=== PATIENT | female | born 2000 | race Caucasian/White ===

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

== ENCOUNTER 2019-02-13 00:52 | Emergency (ER) | payer SELFPAY ==
[~2019-02-13] VITALS: Ht 162.4 cm; Wt 166.0 kg
[~2019-02-13 00:52] MED LIST changes: +CEPH-507 PO; -TRAM50TA2 PO; +TRM50T PO
--- NOTE | 2019-02-13 02:19 | ED Upper Extremity ---
General Chief Complaint: Upper Extremity Stated Complaint: LT ARM PAIN Nursing Triage Note: PAIN STARTED AT 0015 C/O LEFT ARM PAIN, DENIES INJURY OR SOB. ROM INTACT Nursing Sepsis Screen: No Definite Risk Source: patient Exam Limitations: no limitations History of Present Illness Date Seen by Provider: Feb 13, 2019 Time Seen by Provider: 02:01 Initial Comments Here with left arm pain that is actually resolved now. She states that it started this evening. She has had some left sided neck tension and some left- sided tension headache. She is under a lot of stress right now due to an ongoing move. Denies any recent injury. Denies numbness or tingling. Has full range of motion of the left arm as well as the neck that is tender along the musculature on the left side. Onset: just prior to arrival Severity: mild Pain/Injury Location: left arm Method of Injury: unknown Modifying Factors: Improves With Immobilization; Worse With Movement; Improves With Rest Allergies and Home Medications Allergies Coded Allergies: No Known Drug Allergies (Unverified , 10/14/15) Home Medications Cephalexin 500 Mg Capsule, 500 MG PO QID Prescribed by: ROLANDO ZHANG on 11/18/18 1143 Patient Home Medication List Home Medication List Reviewed: Yes Review of Systems Constitutional: see HPI; No chills, No fever Musculoskeletal: see HPI, muscle pain, muscle stiffness Skin: no symptoms reported Psychiatric/Neurological: No Symptoms Reported Past Dmxvafa-Iaquxf-Fosceh Hx Past Med/Social Hx: Reviewed Nursing Past Med/Soc Hx Patient Social History Alcohol Use: Denies Use Recreational Drug Use: No Type Used: Cigarettes Former Smoker, Quit: Mar 09, 2015 2nd Hand Smoke Exposure: Yes Recent Foreign Travel: No Contact w/Someone Who Travel: No Recent Infectious Disease Expo: No Recent Hopitalizations: No Physical Abuse: No Sexual Abuse: No Mistreated: No Fear: No Immunizations Up To Date Tetanus Booster (TDap): Less than 5yrs PED Vaccines UTD: Yes Seasonal Allergies Seasonal Allergies: No Past Medical History Surgeries: No Respiratory: No Cardiac: No Neurological: No : No (NO PERIOD IN 3 YEARS D/T "PCOS") Reproductive Disorders: Yes (IRREGULAR PERIODS) Female Reproductive Disorders: Menstrual Problems, Ovarian Cyst Sexually Transmitted Disease: No HIV/AIDS: No Genitourinary: No UTI (peds) Gastrointestinal: Yes Ulcer Musculoskeletal: No Endocrine: No HEENT: No Cancer: No Psychosocial: Yes ADD/ADHD, Anxiety, Bipolar, Depression Integumentary: No Blood Disorders: No Family Medical History Reviewed Nursing Family Hx No Pertinent Family Hx Physical Exam Vital Signs Vital Signs - First Documented 02/13/19 01:00 Temp 37.0 Pulse 123 Resp 18 B/P (MAP) 146/112 (123) Pulse Ox 100 Capillary Refill : Less Than 3 Seconds Height, Weight, BMI Height: 5'4.00" Weight: 380lbs. oz. 172.636407yl; 62.00 BMI Method:Stated General Appearance: WD/WN, no apparent distress Neck: full range of motion, supple, tender lateral (along the posterior musculature on the left) Cardiovascular: no murmur, tachycardia Respiratory: lungs clear, normal breath sounds Shoulder: no evidence of injury, normal ROM Elbow/Forearm: normal inspection, non-tender, no evidence of injury, normal ROM, Left Hand: non-tender, no evidence of injury, normal ROM, Bilateral Neurologic/Psychiatric: alert, oriented x 3 Skin: normal color, warm/dry Progress/Results/Core Measures Results/Orders Vital Signs/I&O 02/13/19 01:00 Temp 37.0 Pulse 123 Resp 18 B/P (MAP) 146/112 (123) Pulse Ox 100 Blood Pressure Mean: 123 POS Progress Progress Note : Progress Note Seen and evaluated. Patient states that she is doing better now and would like to just go home. I did discuss outpatient options for muscle strain and muscle tension. Discharged home with return precautions. Patient verbalize understanding instructions and agreement with plan. Departure Impression Primary Impression: Left arm pain Additional Impression: Neck muscle strain Qualified Codes: S16.1XXA - Strain of muscle, fascia and tendon at neck level, initial encounter Disposition: HOME, SELF-CARE Condition: Stable Departure-Patient Inst. Decision time for Depature: 02:17 Referrals: NO,LOCAL PHYSICIAN (PCP/Family) Primary Care Physician Patient Instructions: Cervical Muscle Strain (DC), Muscle Strain Add. Discharge Instructions: All discharge instructions reviewed with patient and/or family. Voiced understanding. You may take ibuprofen 600 mg every 8 hours as needed for pain. You may take Tylenol/acetaminophen 1000 mg every 8 hours as needed for pain. You may use uacb-znh-amoolqi preparations such as icy hot with lidocaine to the area of concern per package directions. You may use ice or heat to area of concern to decrease pain. Follow-up with your Dr. in a few days for recheck. Return for worse pain, fever, vomiting, weakness, breathing problems other concerns as needed. Drink plenty of fluids. JOHANA GAN MD Feb 13, 2019 02:19 POS
[2019-02-13 02:25] VITALS: BP 128/88
== END 2019-02-13 02:24 | disposition home or self-care (01) ==
LOC: EDUNIT# 00:52 → ER 00:54
DX: S16.1XXA Strain of muscle, fascia and tendon at neck level, initial encounter (principal); M79.602 Pain in left arm; F90.9 Attention-deficit hyperactivity disorder, unspecified type; F41.9 Anxiety disorder, unspecified; F31.9 Bipolar disorder, unspecified; Z77.22 Contact with and (suspected) exposure to environmental tobacco smoke (acute) (chronic); Z87.891 Personal history of nicotine dependence; Z87.440 Personal history of urinary (tract) infections; X58.XXXA Exposure to other specified factors, initial encounter
CPT/HCPCS: 99282

== ENCOUNTER 2019-03-27 06:56 | Emergency (ER) | payer SELFPAY ==
[~2019-03-27] VITALS: Ht 162.5 cm; Wt 164.5 kg
[2019-03-27] MEDS ORDERED: ONDANSETRON 4 MG (ZOFRAN) ORAL DISSOLVE TAB SL ONE (07:15)
--- NOTE | 2019-03-27 07:48 | NUR ---
REPORTS FEELING BETTER AFTER ZOFRAN ICE CHIPS GIVEN
--- NOTE | 2019-03-27 08:07 | NUR ---
AMB TO BATHROOM.
--- NOTE | 2019-03-27 08:10 | NUR ---
UNABLE TO GIVE UA.
--- NOTE | 2019-03-27 08:32 | NUR ---
TOLERATED ICE CHIPS WATER GIVEN TO DRINK
--- NOTE | 2019-03-27 08:33 | Diagnostic Imaging Report ---
Indication: Chest pain with inspiration. Comparison: 11/10/2018. Discussion: Two views of the chest were obtained. Normal heart size. No focal consolidation, pleural fluid, or pneumothorax. No osseous abnormality. Impression: 1. Negative chest. Dictated by: Dictated on workstation # [id number]
--- NOTE | 2019-03-27 09:09 | ED General ---
General Chief Complaint: General Problems/Pain Stated Complaint: LOWER BACK PAIN, N/V Nursing Triage Note: AMB TO ROOM C/O BACK PAIN WITH NAUSEA ONSET LAST NIGHT. WAS DX WITH PNEUMONIA 2 WEEKS AGO,BUT DID NOT TAKE Z PACK. REPORTS BACK PAIN ONLY WHEN TAKING A DEEP BREATH. Nursing Sepsis Screen: No Definite Risk Source of Information: Patient Exam Limitations: No Limitations History of Present Illness Date Seen by Provider: Mar 27, 2019 Time Seen by Provider: 07:02 Initial Comments This 19-year-old young lady presents to the emergency room with complaints of nausea and vomiting that started this morning around 04:30. She also has left upper back pain that hurts with inspiration. She has been seeing a chiropractor for this and believe she has a spine/disc problem. She also reports being told that a couple weeks ago that she has pneumonia in the walk-in clinic. She was prescribed azithromycin but did not take it. She is afebrile. She is tachycardic but reports that always happens in the healthcare setting. She denies any urinary symptoms. She denies . Allergies and Home Medications Allergies Coded Allergies: No Known Drug Allergies (Unverified , 10/14/15) Home Medications Ondansetron 4 Mg Tab.rapdis, 4 MG SL Q4H PRN for NAUSEA/VOMITING Prescribed by: ROLANDO ZHANG on 03/27/19 0911 Patient Home Medication List Home Medication List Reviewed: Yes Review of Systems Review of Systems Constitutional: no symptoms reported EENTM: no symptoms reported Respiratory: see HPI Cardiovascular: see HPI Gastrointestinal: see HPI Genitourinary: no symptoms reported : No Musculoskeletal: see HPI Skin: no symptoms reported Psychiatric/Neurological: No Symptoms Reported Hematologic/Lymphatic: No Symptoms Reported Immunological/Allergic: no symptoms reported Past Jgbxkhx-Enmlzt-Ayfxmh Hx Past Med/Social Hx: Reviewed and Corrections made Patient Social History Alcohol Use: Denies Use Recreational Drug Use: No Smoking Status: Former Smoker Type Used: Cigarettes Former Smoker, Quit: Mar 09, 2015 2nd Hand Smoke Exposure: Yes Recent Foreign Travel: No Contact w/Someone Who Travel: No Recent Infectious Disease Expo: No Recent Hopitalizations: No Immunizations Up To Date Tetanus Booster (TDap): Less than 5yrs PED Vaccines UTD: Yes Seasonal Allergies Seasonal Allergies: No Past Medical History Surgeries: No Respiratory: No Cardiac: No Neurological: No Last Menstrual Period: Feb 06, 2019 Reproductive Disorders: Yes (IRREGULAR PERIODS) Female Reproductive Disorders: Menstrual Problems, Ovarian Cyst, Polycystic Ovarian Dis Sexually Transmitted Disease: No HIV/AIDS: No Genitourinary: No UTI (peds) Gastrointestinal: Yes Ulcer Musculoskeletal: No Endocrine: Yes (morbid obesity, PCOS) HEENT: No Cancer: No Psychosocial: Yes ADD/ADHD, Anxiety, Bipolar, Depression Integumentary: No Blood Disorders: No Family Medical History Reviewed Nursing Family Hx No Pertinent Family Hx Physical Exam Vital Signs Vital Signs - First Documented 03/27/19 07:02 Temp 37.1 Pulse 128 Resp 18 B/P (MAP) 142/11 (54) Pulse Ox 100 O2 Delivery Room Air Capillary Refill : Less Than 3 Seconds Height, Weight, BMI Height: 5'4.00" Weight: 380lbs. oz. 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 Skin: Normal Color, Warm/Dry Progress/Results/Core Measures Suspected Sepsis Recent Fever Within 48 Hours: No Infection Criteria Present: None New/Unexplained Altered Menta: No Sepsis Screen: No Definite Risk SIRS Temperature: Pulse: 128 Respiratory Rate: 18 Blood Pressure 142 /11 Mean: 54 Results/Orders Lab Results Laboratory Tests Test 03/27/19 09:07 Range/Units Urine Color YELLOW Urine Clarity CLEAR Urine pH 6.5 5-9 Urine Specific [place] 1.010 L 1.016-1.022 Urine Protein NEGATIVE NEGATIVE Urine Glucose (UA) NEGATIVE NEGATIVE Urine Ketones NEGATIVE NEGATIVE Urine Nitrite NEGATIVE NEGATIVE Urine Bilirubin NEGATIVE NEGATIVE Urine Urobilinogen 0.2 < = 1.0 MG/DL Urine Leukocyte Esterase 1+ H NEGATIVE Urine RBC (Auto) 2+ H NEGATIVE Urine RBC NONE /HPF Urine WBC 5-10 H /HPF Urine Squamous Epithelial Cells 0-2 /HPF Urine Crystals NONE /LPF Urine Bacteria MODERATE H /HPF Urine Casts NONE /LPF Urine Mucus NEGATIVE /LPF Urine Culture Indicated YES Micro Results Microbiology 03/27/19 Influenza Types A,B Antigen (AYDEN) - Final, Complete My Orders Orders - ROLANDO STILL MD Ua Culture If Indicated (03/27/19 07:01) Urine Bedside (03/27/19 07:01) Ondansetron Oral Dissolve Tab (Zofran (03/27/19 07:15) Chest Pa/Lat (2 View) (03/27/19 07:14) Influenza A And B Antigens (03/27/19 07:25) Urine Culture (03/27/19 09:07) Medications Given in ED Current Medications Medications Dose Ordered Sig/Braeden Route Start Time Stop Time Status Last Admin Dose Admin Ondansetron HCl 8 mg ONCE ONCE SL 03/27/19 07:15 03/27/19 07:17 DC 03/27/19 07:20 8 MG Vital Signs/I&O 03/27/19 07:02 Temp 37.1 Pulse 128 Resp 18 B/P (MAP) 142/11 (54) Pulse Ox 100 O2 Delivery Room Air Capillary Refill : Less Than 3 Seconds Blood Pressure Mean: 54 Progress Note #1: Time: 09:09 Progress Note Chest x-ray was obtained to rule out pulmonary pathology. Chest x-ray was normal. Nausea was treated with Zofran and resolved. Patient was able to drink clear liquids. UA is pending. Influenza screen was negative. Progress Note #2: Time: 09:41 Progress Note UA suggestive urinary tract infection. Keflex was prescribed. Diagnostic Imaging Diagonstic Imaging: Xray Plain Films/CT/US/NM/MRI: chest Comments Chest x-ray viewed by me and report reviewed. See report below: NAME: [facility] REC#: [id number] PT STATUS: REG ER : 2000 PHYSICIAN: ROLANDO STILL MD ADMIT DATE: 03/27/19/ER Draft Date of Exam:03/27/19 CHEST PA/LAT (2 VIEW) Indication: Chest pain with inspiration. Comparison: 11/10/2018. Discussion: Two views of the chest were obtained. Normal heart size. No focal consolidation, pleural fluid, or pneumothorax. No osseous abnormality. Impression: 1. Negative chest. Dictated on workstation # [id number] Dict: 03/27/19830 Trans: 03/27/198[address] [facility] [phone] Interpreted by: LUPIS BELCHER MD Departure Impression Primary Impression: Nausea & vomiting Qualified Codes: R11.2 - Nausea with vomiting, unspecified Additional Impressions: Acute upper back pain Urinary tract infection Qualified Codes: N39.0 - Urinary tract infection, site not specified Disposition: HOME, SELF-CARE Condition: Improved Departure-Patient Inst. Decision time for Depature: 09:10 Referrals: NO,LOCAL PHYSICIAN (PCP/Family) Primary Care Physician Patient Instructions: Nausea and Vomiting, Adult (DC), Upper Back Pain (DC) Add. Discharge Instructions: Drink plenty of clear liquids. Gradually advance your diet with small quantities of bland food as tolerated. Adhere to mostly a clear liquid diet for the remainder of today. For upper abdominal discomfort you may take an antacid medication such as Tums, Pepcid, etc. purchased [id number]. Use Zofran (ondansetron) as prescribed for nausea and vomiting. Complete your antibiotics as prescribed. Review urine culture with your primary care provider middle of this week. Contact your doctor or return to the emergency room with any further problems or concerns. All discharge instructions reviewed with patient and/or family. Voiced understanding. Scripts Cephalexin (Keflex) 500 Mg Capsule 500 MG PO TID, #15 CAP Prov: ROLANDO STILL MD 03/27/19 Ondansetron (Ondansetron Odt) 4 Mg Tab.rapdis 4 MG SL Q4H PRN for NAUSEA/VOMITING, #10 TAB Prov: ROLANDO STILL MD 03/27/19 ROLANDO STILL MD Mar 27, 2019 09:09
[2019-03-27] MEDS ORDERED: ONDA4TAB11 SL (09:11)
[2019-03-27 09:14] LABS: BILIRUBIN,URINE NEGATIVE (NEGATIVE); CLARITY,URINE CLEAR; COLOR,URINE YELLOW; GLUCOSE, URINE (UA) NEGATIVE (NEGATIVE); KETONES,URINE NEGATIVE (NEGATIVE); LEUKOCYTE ESTERASE ,URINE 1+ (NEGATIVE); NITRITE,URINE NEGATIVE (NEGATIVE); PH,URINE 6.5 (5-9); PROTEIN,URINE NEGATIVE (NEGATIVE)
[2019-03-27 09:29] LABS: BACTERIA,URINE MODERATE /HPF; SQUAMOUS EPITHELIAL CELL,UR 0-2 /HPF
[2019-03-27] MEDS ORDERED: CEPH-507 PO (09:41)
[2019-03-27 09:47] VITALS: BP 138/92
== END 2019-03-27 09:47 | disposition home or self-care (01) ==
LOC: EDUNIT# 06:56 → ER 06:57
DX: N39.0 Urinary tract infection, site not specified (principal); M54.6 Pain in thoracic spine; F90.9 Attention-deficit hyperactivity disorder, unspecified type; F41.9 Anxiety disorder, unspecified; F31.9 Bipolar disorder, unspecified; E66.01 Morbid (severe) obesity due to excess calories; Z87.891 Personal history of nicotine dependence; Z77.22 Contact with and (suspected) exposure to environmental tobacco smoke (acute) (chronic); Z68.44 Body mass index [BMI] 60.0-69.9, adult
CPT/HCPCS: 71046; 81000; 84703; 87088; 87804

== ENCOUNTER 2019-04-04 21:37 | Emergency (ER) | payer SELFPAY ==
[~2019-04-04] VITALS: Ht 162 cm; Wt 163.6 kg
[~2019-04-04 21:37] MED LIST changes: +ONDA4TAB11 SL
--- NOTE | 2019-04-04 22:07 | ED Abdominal Pain ---
General Chief Complaint: Abdominal/GI Problems Stated Complaint: CP/STOMACH PAIN/L SHOULDER PAIN Source of Information: Patient Exam Limitations: No Limitations History of Present Illness Date Seen by Provider: Apr 04, 2019 Time Seen by Provider: 22:05 Initial Comments To ER with posterior/lateral chest wall pain that began this evening prior to arrival. She also has epigastric pain as a band around her abdomen. This pain gets worse when she eats. She's had this for several months and believes she has about gallbladder. She denies any cough or shortness of breath. Timing/Duration: 1-2 Days Severity/Quality: Moderate Radiation: No Radiation Activities at Onset: None Allergies and Home Medications Allergies Coded Allergies: No Known Drug Allergies (Unverified , 10/14/15) Home Medications Cephalexin 500 Mg Capsule, 500 MG PO TID Prescribed by: ROLANDO ZHANG on 03/27/19 0941 Ondansetron 4 Mg Tab.rapdis, 4 MG SL Q4H PRN for NAUSEA/VOMITING Prescribed by: ROLANDO ZHANG on 03/27/19 0911 Patient Home Medication List Home Medication List Reviewed: Yes Review of Systems Review of Systems Constitutional: see HPI EENTM: No Symptoms Reported Respiratory: No Symptoms Reported Gastrointestinal: See HPI, Abdominal Pain, Nausea Genitourinary: No Symptoms Reported Musculoskeletal: no symptoms reported Skin: no symptoms reported Psychiatric/Neurological: No Symptoms Reported Endocrine: No Symptoms Reported Hematologic/Lymphatic: No Symptoms Reported ([place] leave until the job is done) Past Kwgahhy-Dysvoj-Gattne Hx Patient Social History Type Used: Cigarettes Former Smoker, Quit: Mar 09, 2015 2nd Hand Smoke Exposure: Yes Recent Foreign Travel: No Contact w/Someone Who Travel: No Recent Hopitalizations: No Immunizations Up To Date Tetanus Booster (TDap): Less than 5yrs PED Vaccines UTD: Yes Seasonal Allergies Seasonal Allergies: No Past Medical History Surgeries: No Respiratory: No Cardiac: No Neurological: No Reproductive Disorders: Yes (IRREGULAR PERIODS) Female Reproductive Disorders: Menstrual Problems, Ovarian Cyst, Polycystic Ovarian Dis Sexually Transmitted Disease: No HIV/AIDS: No Genitourinary: No UTI (peds) Gastrointestinal: Yes Ulcer Musculoskeletal: No Endocrine: Yes (morbid obesity, PCOS) HEENT: No Cancer: No Psychosocial: Yes ADD/ADHD, Anxiety, Bipolar, Depression Integumentary: No Blood Disorders: No Family Medical History No Pertinent Family Hx Physical Exam Vital Signs Capillary Refill : Height/Weight/BMI Height: 5'4.00" Weight: 380lbs. oz. 172.054232pd; 62.00 BMI Method:Stated General Appearance: WD/WN, no apparent distress, obese, other (secondary to 110 after walking to the room with his heart rate drops after she sits down.) HEENT: PERRL/EOMI, normal ENT inspection Respiratory: normal breath sounds, no respiratory distress, no accessory muscle use Cardiovascular: no murmur Gastrointestinal: normal bowel sounds, non tender, soft Skin: normal color, warm/dry Progress/Results/Core Measures Results/Orders Lab Results Laboratory Tests Test 04/04/19 22:12 Range/Units White Blood Count 9.8 4.3-11.0 10^3/uL Red Blood Count 5.32 4.35-5.85 10^6/uL Hemoglobin 14.8 11.5-16.0 G/DL Hematocrit 46 35-52 % Mean Corpuscular Volume 86 80-99 FL Mean Corpuscular Hemoglobin 28 25-34 PG Mean Corpuscular Hemoglobin Concent 33 32-36 G/DL Red Cell Distribution Width 14.0 10.0-14.5 % Platelet Count 210 130-400 10^3/uL Mean Platelet Volume 12.9 H 7.4-10.4 FL Neutrophils (%) (Auto) 65 42-75 % Lymphocytes (%) (Auto) 27 12-44 % Monocytes (%) (Auto) 6 0-12 % Eosinophils (%) (Auto) 2 0-10 % Basophils (%) (Auto) 0 0-10 % Neutrophils # (Auto) 6.4 1.8-7.8 X 10^3 Lymphocytes # (Auto) 2.6 1.0-4.0 X 10^3 Monocytes # (Auto) 0.6 0.0-1.0 X 10^3 Eosinophils # (Auto) 0.2 0.0-0.3 10^3/uL Basophils # (Auto) 0.0 0.0-0.1 10^3/uL Sodium Level 141 135-145 MMOL/L Potassium Level 3.9 3.6-5.0 MMOL/L Chloride Level 106 98-107 MMOL/L Carbon Dioxide Level 22 21-32 MMOL/L Anion Gap 13 5-14 MMOL/L Blood Urea Nitrogen 13 7-18 MG/DL Creatinine 0.84 0.60-1.30 MG/DL Estimat Glomerular Filtration Rate > 60 BUN/Creatinine Ratio 15 Glucose Level 116 H 70-105 MG/DL Calcium Level 9.8 8.5-10.1 MG/DL Corrected Calcium 9.5 8.5-10.1 MG/DL Total Bilirubin 0.3 0.1-1.0 MG/DL Aspartate Amino Transf (AST/SGOT) 26 5-34 U/L Alanine Aminotransferase (ALT/SGPT) 48 0-55 U/L Alkaline Phosphatase 110 40-136 U/L Total Protein 7.7 6.4-8.2 GM/DL Albumin 4.4 3.2-4.5 GM/DL Lipase 23 8-78 U/L Serum Test, Qualitative NEGATIVE NEGATIVE My Orders Orders - JAEL TOTH APRN Cbc With Automated Diff (04/04/19 22:02) Lipase (04/04/19 22:02) Comprehensive Metabolic Panel (04/04/19 22:02) Chest Pa/Lat (2 View) (04/04/19 22:02) Hcg,Qualitative Serum (04/04/19 22:33) Departure Impression Primary Impression: Chest wall pain Additional Impression: RUQ pain Disposition: 01 HOME, SELF-CARE Condition: Stable Departure-Patient Inst. Decision time for Depature: 22:49 Referrals: [facility] (PCP) Primary Care Physician HERMINIA GARRIDO APRN (Family) Primary Care Physician Patient Instructions: No Instuctions Given Add. Discharge Instructions: Call the scheduling department circled in the upper left corner of the order sheet to get the gallbladder ultrasound scheduled. Results will be sent to her primary care provider Herminia Garrido. Follow-up with her to obtain these results and how to best manage them. All discharge instructions reviewed with patient and/or family. Voiced understanding. JAEL TOTH APRN Apr 04, 2019 22:07
[2019-04-04 22:18] LABS: BASOPHILS % (AUTO) 0 % (0-10); EOSINOPHILS # (AUTO) 0.2 10^3/uL (0.0-0.3); EOSINOPHILS % (AUTO) 2 % (0-10); HEMATOCRIT 46 % (35-52); HEMOGLOBIN 14.8 G/DL (11.5-16.0); LYMPHOCYTES # (AUTO) 2.6 X 10^3 (1.0-4.0); LYMPHOCYTES % (AUTO) 27 % (12-44); MEAN CORPUSCULAR HEMOGLOBIN 28 PG (25-34); MEAN CORPUSCULAR HGB CONC 33 G/DL (32-36); MEAN CORPUSCULAR VOLUME 86 FL (80-99); MEAN PLATELET VOLUME 12.9 FL (7.4-10.4); MONOCYTES # (AUTO) 0.6 X 10^3 (0.0-1.0); MONOCYTES % (AUTO) 6 % (0-12); NEUTROPHILS # (AUTO) 6.4 X 10^3 (1.8-7.8); NEUTROPHILS % (AUTO) 65 % (42-75); PLATELET COUNT 210 10^3/uL (130-400); WHITE BLOOD COUNT 9.8 10^3/uL (4.3-11.0)
[2019-04-04 22:36] LABS: ALANINE AMINOTRANSFERASE 48 U/L (0-55); ALBUMIN 4.4 GM/DL (3.2-4.5); ALKALINE PHOSPHATASE 110 U/L (40-136); BILIRUBIN,TOTAL 0.3 MG/DL (0.1-1.0); BUN/CREATININE RATIO 15; CALCIUM 9.8 MG/DL (8.5-10.1); CARBON DIOXIDE 22 MMOL/L (21-32); CHLORIDE 106 MMOL/L (98-107); CREATININE SERUM 0.84 MG/DL (0.60-1.30); GFR ESTIMATED > 60; GLUCOSE 116 MG/DL (70-105); LIPASE 23 U/L (8-78); POTASSIUM 3.9 MMOL/L (3.6-5.0); SODIUM 141 MMOL/L (135-145); TOTAL PROTEIN 7.7 GM/DL (6.4-8.2)
[2019-04-04 23:20] VITALS: BP 185/92
--- NOTE | 2019-04-05 06:23 | Diagnostic Imaging Report ---
INDICATION: Chest wall pain COMPARISON: 03/27/2019 TECHNIQUE: Two radiographs of the chest dated 04/04/2019 FINDINGS: The cardiac silhouette and pulmonary vasculature are within normal limits. The lungs are clear. No pleural effusion. No pneumothorax. No acute osseous abnormality. IMPRESSION: Stable examination without acute cardiopulmonary abnormality. Dictated by: Dictated on workstation # [id number]
== END 2019-04-04 23:20 | disposition home or self-care (01) ==
LOC: EDUNIT# 21:37 → ER 21:38
DX: R07.89 Other chest pain (principal); R10.11 Right upper quadrant pain; E66.01 Morbid (severe) obesity due to excess calories; Z68.44 Body mass index [BMI] 60.0-69.9, adult; Z87.891 Personal history of nicotine dependence; Z77.22 Contact with and (suspected) exposure to environmental tobacco smoke (acute) (chronic); Z87.440 Personal history of urinary (tract) infections
CPT/HCPCS: 36415; 71046; 80053; 83690; 84703; 85025

== ENCOUNTER → 2019-04-08 | Outpatient (CLI) | payer SELFPAY ==
--- NOTE | 2019-04-08 09:16 | Diagnostic Imaging Report ---
EXAMINATION: US Abdomen limited. TECHNIQUE: Multiple real-time grayscale images were obtained over the right upper quadrant in various projections. HISTORY: Right upper quadrant pain COMPARISON: None available. FINDINGS: The liver is normal in size. The liver is increased in echogenicity. No focal lesions are seen. The portal vein is patent with hepatopedal flow. Multiple gallstones are seen. No wall thickening or pericholecystic fluid. Sonographic Ocampo sign is negative. Common duct is obscured. There is no biliary ductal dilation. Pancreas is not well seen. The right kidney is normal without hydronephrosis. IMPRESSION: 1. Cholelithiasis without cholecystitis. 2. Hepatic steatosis. Dictated by: Dictated on workstation # [id number]
== END ==
LOC: RAD 08:40
PROVIDERS: ATTEND Nurse Practitioner Family
DX: K80.20 Calculus of gallbladder without cholecystitis without obstruction (principal); K76.0 Fatty (change of) liver, not elsewhere classified
CPT/HCPCS: 76705

== ENCOUNTER 2019-04-12 20:23 | Emergency (ER) | payer OTHER ==
--- NOTE | 2019-04-12 20:51 | ED Abdominal Pain ---
General Chief Complaint: Abdominal/GI Problems Stated Complaint: ABD PAIN History of Present Illness Date Seen by Provider: Apr 12, 2019 Time Seen by Provider: 00:00 Initial Comments LEFT AMA PRIOR TO BEING SEEN--SHORTLY AFTER BEING TRIAGED. Allergies and Home Medications Allergies Coded Allergies: No Known Drug Allergies (Unverified , 10/14/15) Home Medications Cephalexin 500 Mg Capsule, 500 MG PO TID Prescribed by: ROLANDO ZHANG on 03/27/19 0941 Ondansetron 4 Mg Tab.rapdis, 4 MG SL Q4H PRN for NAUSEA/VOMITING Prescribed by: ROLANDO ZHANG on 03/27/19 0911 Patient Home Medication List Home Medication List Reviewed: No Review of Systems Review of Systems Constitutional: other (NA) Past Zsepmvg-Vohrxf-Ccuvwj Hx Patient Social History Type Used: Cigarettes Former Smoker, Quit: Mar 09, 2015 2nd Hand Smoke Exposure: Yes Recent Foreign Travel: No Contact w/Someone Who Travel: No Recent Hopitalizations: No Immunizations Up To Date Tetanus Booster (TDap): Less than 5yrs PED Vaccines UTD: Yes Seasonal Allergies Seasonal Allergies: No Past Medical History Surgeries: No Respiratory: No Cardiac: No Neurological: No Reproductive Disorders: Yes (IRREGULAR PERIODS) Female Reproductive Disorders: Menstrual Problems, Ovarian Cyst, Polycystic Ovarian Dis Sexually Transmitted Disease: No HIV/AIDS: No Genitourinary: No UTI (peds) Gastrointestinal: Yes Ulcer Musculoskeletal: No Endocrine: Yes (morbid obesity, PCOS) HEENT: No Cancer: No Psychosocial: Yes ADD/ADHD, Anxiety, Bipolar, Depression Integumentary: No Blood Disorders: No Family Medical History No Pertinent Family Hx Physical Exam Vital Signs Capillary Refill : Height/Weight/BMI Height: 5'4.00" Weight: 380lbs. oz. 172.320366pk; 62.00 BMI Method:Stated General Appearance: other (LEFT AMA BEFORE BEING SEEN) Progress/Results/Core Measures Results/Orders My Orders Orders - MARTINE BARRAZA DO Ed Iv/Invasive Line Start (04/12/19 20:52) Monitor-Rhythm Ecg Trace Only (04/12/19 20:52) Ed Iv/Invasive Line Start (04/12/19 20:52) Lactated Ringers (Lr 1000 Ml Iv Solution (04/12/19 20:52) Departure Impression Primary Impression: Left against medical advice Disposition: 07 AGAINST MEDICAL ADVICE Condition: Against Medical Advice Departure-Patient Inst. Referrals: [facility] (PCP) Primary Care Physician TASNEEM VINSON APRN (Family) Primary Care Physician MARTINE BARRAZA DO Apr 12, 2019 20:51
[2019-04-12] MEDS ORDERED: LACTATED RINGERS 1,000 ML IV ONE (20:52)
--- NOTE | 2019-04-12 20:55 | NUR ---
PT INQUIRES ABOUT PROVIDERS WORKING TONIGHT IN THE EMERGENCY ROOM, WHEN ADVISED, THE PT STATES SHE DOES NOT WANT TO RECIEVE CARE IN THIS ER AND DEMANDS AMA FORM. ADVISED PT OF POSSIBLE CONSEQUENCES, PT ACKNOWLEDGED AND SIGNED FORM, LEFT ED AMBULATORY IN STABLE CONDITION
== END 2019-04-12 20:58 | disposition left against medical advice (07) ==
LOC: EDUNIT# 20:23 → ER 20:24
DX: R10.9 Unspecified abdominal pain (principal); E66.01 Morbid (severe) obesity due to excess calories; Z87.891 Personal history of nicotine dependence

== ENCOUNTER 2019-04-14 19:55 | Emergency (ER) | payer OTHER ==
[~2019-04-14] VITALS: Ht 162.5 cm; Wt 163.6 kg
--- NOTE | 2019-04-14 20:25 | ED Chest Pain ---
General Chief Complaint: Chest Pain Stated Complaint: CHEST PAIN Source: patient, family, spouse Exam Limitations: no limitations History of Present Illness Date Seen by Provider: Apr 14, 2019 Time Seen by Provider: 20:00 Initial Comments The patient presents to the ER by private conveyance with chief complaint of 20 minutes of chest pain in her substernal, epigastric region. She says the pain is nonradiating. It started about an hour or 2 after she ate enchiladas and a ham and cheese sandwich. She has been having this pain intermittently since November, 5 months ago. [facility] She had an ultrasound last week which demonstrated cholelithiasis without cholecystitis. She has an appointment early next week with Dr. Ashton, General Surgery. She is not on an antacid or any other medicines. She says ibuprofen usually makes the pain better she has not had any of that today. She's having no nausea presently. No personal or primary family all history of coronary disease. No history of diabetes, cholesterol, hypothyroidism, hypertension, smoking. She's had no rec ent surgeries or periods of inactivity. No shortness of breath. No familial history of sudden onset cardiac disease. She rates the pain as a 3 out of 10. Allergies and Home Medications Allergies Coded Allergies: No Known Drug Allergies (Unverified , 10/14/15) Home Medications Cephalexin 500 Mg Capsule, 500 MG PO TID Prescribed by: ROLANDO ZHANG on 03/27/19 0941 Hyoscyamine Sulfate 0.125 Mg Tab.rapdis, 0.125 MG PO Q6H PRN for DIARRHEA Prescribed by: DEBRA CEBALLOS on 04/14/192226 Ondansetron 4 Mg Tab.rapdis, 4 MG SL Q4H PRN for NAUSEA/VOMITING Prescribed by: ROLANDO ZHANG on 03/27/19 0911 Pantoprazole Sodium 20 Mg Tablet.dr, 20 MG PO BID Prescribed by: DEBRA CEBALLOS on 04/14/192226 Patient Home Medication List Home Medication List Reviewed: Yes Review of Systems Review of Systems Constitutional: No chills, No diaphoresis EENTM: No Blurred Vision, No Double Vision Respiratory: Denies Cough, Denies Shortness of Air Cardiovascular: Chest Pain; Denies Edema, Denies Irregular Heart Rate Gastrointestinal: Denies Abdominal Pain, Denies Constipated, Denies Diarrhea, Denies Nausea, Denies Poor Appetite Past Htdfhgt-Isxfdj-Hxhgog Hx Patient Social History Alcohol Use: Denies Use Smoking Status: Former Smoker Type Used: Cigarettes Former Smoker, Quit: Mar 09, 2015 2nd Hand Smoke Exposure: Yes Recent Foreign Travel: No Contact w/Someone Who Travel: No Recent Hopitalizations: No Immunizations Up To Date Tetanus Booster (TDap): Less than 5yrs PED Vaccines UTD: Yes Seasonal Allergies Seasonal Allergies: No Past Medical History Surgeries: No Respiratory: No Cardiac: No Neurological: No Reproductive Disorders: Yes (IRREGULAR PERIODS) Female Reproductive Disorders: Menstrual Problems, Ovarian Cyst, Polycystic Ovarian Dis Sexually Transmitted Disease: No HIV/AIDS: No Genitourinary: No UTI (peds) Gastrointestinal: Yes Ulcer Musculoskeletal: No Endocrine: Yes (morbid obesity, PCOS) HEENT: No Cancer: No Psychosocial: Yes ADD/ADHD, Anxiety, Bipolar, Depression Integumentary: No Blood Disorders: No Family Medical History No Pertinent Family Hx Physical Exam Vital Signs Vital Signs - First Documented 04/14/19 19:58 Temp 36.8 Pulse 107 Resp 20 B/P (MAP) 129/117 (121) O2 Delivery Room Air Capillary Refill : Height, Weight, BMI Height: 5'4.00" Weight: 380lbs. oz. 172.162308ns; 62.00 BMI Method:Stated General Appearance: No Apparent Distress, WD/WN HEENT: Pharynx Normal, Moist Mucous Membranes Neck: Full Range of Motion, Normal Inspection, Non Tender Respiratory: Lungs Clear, Normal Breath Sounds, No Accessory Muscle Use, No Respiratory Distress Cardiovascular: Regular Rate, Rhythm, No Edema, Normal Peripheral Pulses Gastrointestinal: Normal Bowel Sounds, Non Tender, Soft Extremity: Normal Capillary Refill, Normal Inspection Neurologic/Psychiatric: Alert, Oriented x3 Skin: Normal Color, Warm/Dry Progress/Results/Core Measures Results/Orders Lab Results Laboratory Tests Test 04/14/19 20:29 04/14/19 20:35 Range/Units White Blood Count 9.7 4.3-11.0 10^3/uL Red Blood Count 5.28 4.35-5.85 10^6/uL Hemoglobin 14.7 11.5-16.0 G/DL Hematocrit 45 35-52 % Mean Corpuscular Volume 85 80-99 FL Mean Corpuscular Hemoglobin 28 25-34 PG Mean Corpuscular Hemoglobin Concent 33 32-36 G/DL Red Cell Distribution Width 13.8 10.0-14.5 % Platelet Count 208 130-400 10^3/uL Mean Platelet Volume 12.8 H 7.4-10.4 FL Neutrophils (%) (Auto) 65 42-75 % Lymphocytes (%) (Auto) 27 12-44 % Monocytes (%) (Auto) 6 0-12 % Eosinophils (%) (Auto) 1 0-10 % Basophils (%) (Auto) 0 0-10 % Neutrophils # (Auto) 6.3 1.8-7.8 X 10^3 Lymphocytes # (Auto) 2.7 1.0-4.0 X 10^3 Monocytes # (Auto) 0.6 0.0-1.0 X 10^3 Eosinophils # (Auto) 0.1 0.0-0.3 10^3/uL Basophils # (Auto) 0.0 0.0-0.1 10^3/uL Sodium Level 140 135-145 MMOL/L Potassium Level 4.1 3.6-5.0 MMOL/L Chloride Level 107 98-107 MMOL/L Carbon Dioxide Level 21 21-32 MMOL/L Anion Gap 12 5-14 MMOL/L Blood Urea Nitrogen 17 7-18 MG/DL Creatinine 0.78 0.60-1.30 MG/DL Estimat Glomerular Filtration Rate > 60 BUN/Creatinine Ratio 22 Glucose Level 103 70-105 MG/DL Calcium Level 9.6 8.5-10.1 MG/DL Corrected Calcium 9.3 8.5-10.1 MG/DL Total Bilirubin 0.3 0.1-1.0 MG/DL Aspartate Amino Transf (AST/SGOT) 24 5-34 U/L Alanine Aminotransferase (ALT/SGPT) 44 0-55 U/L Alkaline Phosphatase 117 40-136 U/L Troponin I < 0.028 <0.028 NG/ML C-Reactive Protein High Sensitivity 2.14 H 0.00-0.50 MG/DL Total Protein 7.7 6.4-8.2 GM/DL Albumin 4.4 3.2-4.5 GM/DL Lipase 23 8-78 U/L Urine Color YELLOW Urine Clarity CLEAR Urine pH 6.0 5-9 Urine Specific [place] 1.025 H 1.016-1.022 Urine Protein NEGATIVE NEGATIVE Urine Glucose (UA) NEGATIVE NEGATIVE Urine Ketones NEGATIVE NEGATIVE Urine Nitrite NEGATIVE NEGATIVE Urine Bilirubin NEGATIVE NEGATIVE Urine Urobilinogen 0.2 < = 1.0 MG/DL Urine Leukocyte Esterase 2+ H NEGATIVE Urine RBC (Auto) TRACE-I NEGATIVE Urine RBC 0-2 /HPF Urine WBC 10-25 H /HPF Urine Squamous Epithelial Cells 25-50 H /HPF Urine Crystals PRESENT H /LPF Urine Amorphous Sediment MOD KLARISSA URATES H /LPF Urine Bacteria MODERATE H /HPF Urine Casts NONE /LPF Urine Mucus NEGATIVE /LPF Urine Culture Indicated YES My Orders Orders - DEBRA CEBALLOS Ketorolac Injection (Toradol Injection) (04/14/19 20:30) Cbc With Automated Diff (04/14/19 20:19) Comprehensive Metabolic Panel (04/14/19 20:19) Hs C Reactive Protein (04/14/19 20:19) Lipase (04/14/19 20:19) Ua Culture If Indicated (04/14/19 20:19) Urine Bedside (04/14/19 20:19) Pantoprazole Injection (Protonix Injecti (04/14/19 20:30) Ekg Tracing (04/14/19 20:21) Troponin I (04/14/19 20:21) Continuous Ekg Monitoring (04/14/19 20:21) Pantoprazole Tablet (Protonix Tablet) (04/14/19 20:30) Ketorolac Injection (Toradol Injection) (04/14/19 20:30) Chest 1 View, Ap/Pa Only (04/14/19 20:37) Urine Culture (04/14/19 20:35) Medications Given in ED Current Medications Medications Dose Ordered Sig/Bra[place] Route Start Time Stop Time Status Last Admin Dose Admin Pantoprazole Sodium 40 mg ONCE ONCE PO 04/14/19 20:30 04/14/19 20:31 DC 04/14/19 22:18 40 MG Vital Signs/I&O 04/14/19 04/14/19 19:58 19:58 Temp 36.8 Pulse 107 Resp 20 B/P (MAP) 129/117 (121) O2 Delivery Room Air Room Air Progress Progress Note : Time: 20:35 Progress Note Patient has a same symptoms that she has been worked up for the past discovered it was associated with cholelithiasis. We will do some labs, EKG, chest x-ray to rule out a more serious condition such as cholecystitis, pneumonia, etc. Her symptoms came after eating enchiladas and ham sandwich. We have discussed diet for prophylaxis. We have also provided her some pantoprazole and Toradol. After a couple of attempts at an IV the patient has declined any further IV stick so we will obtain lab Toradol IM and pantoprazole by mouth. She's having no nausea presently. She rates her pain as a 3 out of 10. For her sinus tachycardia we will observe her after the pain medicine and the nurse is no longer attempting to start an IV and see if that improves. Initial ECG Impression Date: Apr 14, 2019 Initial ECG Impression Time: 20:07 Initial ECG Rate: 117 Initial ECG Rhythm: S.Tach Initial ECG Intervals: Normal Initial ECG Impression: Normal Comment Sinus tachycardia without ST elevation or depression. Diagnostic Imaging Diagonstic Imaging: Xray Plain Films/CT/US/NM/MRI: chest (1v) Comments [facility], [place] NAME: JOHNATHAN NICOLE Kash [facility] REC#: [id number] PT STATUS: REG ER : 2000 PHYSICIAN: DEBRA CEBALLOS MD ADMIT DATE: 04/14/19/ER Signed Date of Exam:04/14/19 CHEST 1 VIEW, AP/PA ONLY EXAMINATION: Chest radiograph, portable AP view. DATE: 04/14/2019 8:53 PM. INDICATION: 19-year-old female, chest pain. COMPARISON: April 04, 2019. FINDINGS: Stable overall appearance of the cardiomediastinal silhouette. There is no identified pneumothorax. There is no large pleural effusion. There is no identified focal airspace consolidation. IMPRESSION: No identified acute cardiopulmonary abnormality. Dictated by: Dictated on workstation # [id number] Dict: 04/14/192052 Trans: 04/14/192129 PJE [id number] Interpreted by: ANGEL DAWSON MD Electronically signed by: ANGEL DAWSON MD 04/14/192129 Reviewed: Reviewed by Me Departure Impression Primary Impression: Cholelithiasis Qualified Codes: K80.20 - Calculus of gallbladder without cholecystitis without obstruction Additional Impression: Biliary colic Disposition: HOME, SELF-CARE Condition: Improved Departure-Patient Inst. Decision time for Depature: 22:23 Referrals: [facility] (PCP) Primary Care Physician TASNEEM VINSON APRN (Family) Primary Care Physician Patient Instructions: Gallstones (DC) Add. Discharge Instructions: Avoid greasy, dairy, spicy foods. High-fiber foods. Drink plenty of fluids. Pantoprazole 20 mg twice a day for the next 30 days. Zofran if you needed for nausea. Tylenol 1000 mg every 8 hours as needed for pain. Ibuprofen 800 mg every 8 hours as needed for pain. Hyoscyamine 0.125 mg by mouth every 6 hours as needed for diarrhea or pain associated with your gallbladder. Keep your follow-up appointment with Dr. Ashton, General Surgery. Return to the ER if you experience fever, intractable pain or nausea not treated by the above medications. All discharge instructions reviewed with patient and/or family. Voiced understanding. Scripts Hyoscyamine Sulfate (Hyoscyamine Sulfate) 0.125 Mg Tab.rapdis 0.125 MG PO Q6H PRN for DIARRHEA, #10 TAB 0 Refills Prov: DEBRA CEBALLOS 04/14/19 Pantoprazole Sodium (Pantoprazole Sodium) 20 Mg Tablet. 20 MG PO BID for 30 Days, #60 TAB 00 Refills Prov: DEBRA CEBALLOS 04/14/19 DEBRA CEBALLOS Apr 14, 2019 20:25
[2019-04-14] MEDS ORDERED: PANTOPRAZOLE 40 MG (PROTONIX) TAB PO ONE (20:30)
[2019-04-14] MEDS ORDERED: KETOROLAC 60 MG/2 ML VIAL IM ONE (20:30)
[2019-04-14] MEDS ORDERED: PANTOPRAZOLE 40 MG (PROTONIX) VIAL IV ONE (20:30)
[2019-04-14] MEDS ORDERED: KETOROLAC 30 MG/ML VIAL IVP ONE (20:30)
[2019-04-14 20:39] LABS: BASOPHILS % (AUTO) 0 % (0-10); EOSINOPHILS # (AUTO) 0.1 10^3/uL (0.0-0.3); EOSINOPHILS % (AUTO) 1 % (0-10); HEMATOCRIT 45 % (35-52); HEMOGLOBIN 14.7 G/DL (11.5-16.0); LYMPHOCYTES # (AUTO) 2.7 X 10^3 (1.0-4.0); LYMPHOCYTES % (AUTO) 27 % (12-44); MEAN CORPUSCULAR HEMOGLOBIN 28 PG (25-34); MEAN CORPUSCULAR HGB CONC 33 G/DL (32-36); MEAN CORPUSCULAR VOLUME 85 FL (80-99); MEAN PLATELET VOLUME 12.8 FL (7.4-10.4); MONOCYTES # (AUTO) 0.6 X 10^3 (0.0-1.0); MONOCYTES % (AUTO) 6 % (0-12); NEUTROPHILS # (AUTO) 6.3 X 10^3 (1.8-7.8); NEUTROPHILS % (AUTO) 65 % (42-75); PLATELET COUNT 208 10^3/uL (130-400); RED CELL DISTRIBUTION WIDTH 13.8 % (10.0-14.5); WHITE BLOOD COUNT 9.7 10^3/uL (4.3-11.0)
[2019-04-14 20:45] LABS: BILIRUBIN,URINE NEGATIVE (NEGATIVE); CLARITY,URINE CLEAR; COLOR,URINE YELLOW; GLUCOSE, URINE (UA) NEGATIVE (NEGATIVE); KETONES,URINE NEGATIVE (NEGATIVE); LEUKOCYTE ESTERASE ,URINE 2+ (NEGATIVE); NITRITE,URINE NEGATIVE (NEGATIVE); PROTEIN,URINE NEGATIVE (NEGATIVE)
[2019-04-14 20:59] LABS: RBC,URINE 0-2 /HPF
[2019-04-14 21:00] LABS: AMORPHOUS SEDIMENT,UR MOD AMOR URATES /LPF; BACTERIA,URINE MODERATE /HPF; SQUAMOUS EPITHELIAL CELL,UR 25-50 /HPF
--- NOTE | 2019-04-14 21:04 | Diagnostic Imaging Report ---
EXAMINATION: Chest radiograph, portable AP view. DATE: 04/14/2019 8:53 PM. INDICATION: 19-year-old female, chest pain. COMPARISON: April 04, 2019. FINDINGS: Stable overall appearance of the cardiomediastinal silhouette. There is no identified pneumothorax. There is no large pleural effusion. There is no identified focal airspace consolidation. IMPRESSION: No identified acute cardiopulmonary abnormality. Dictated by: Dictated on workstation # [id number]
[2019-04-14 21:07] LABS: ALANINE AMINOTRANSFERASE 44 U/L (0-55); ALBUMIN 4.4 GM/DL (3.2-4.5); ALKALINE PHOSPHATASE 117 U/L (40-136); BILIRUBIN,TOTAL 0.3 MG/DL (0.1-1.0); BUN/CREATININE RATIO 22; CALCIUM 9.6 MG/DL (8.5-10.1); CARBON DIOXIDE 21 MMOL/L (21-32); CHLORIDE 107 MMOL/L (98-107); CREATININE SERUM 0.78 MG/DL (0.60-1.30); GFR ESTIMATED > 60; GLUCOSE 103 MG/DL (70-105); LIPASE 23 U/L (8-78); POTASSIUM 4.1 MMOL/L (3.6-5.0); SODIUM 140 MMOL/L (135-145); TOTAL PROTEIN 7.7 GM/DL (6.4-8.2)
[2019-04-14] MEDS ORDERED: PANT20TA3 PO (22:27)
[2019-04-14] MEDS ORDERED: HYOS-6 PO (22:27)
[2019-04-14 22:39] VITALS: BP 129/117
== END 2019-04-14 22:40 | disposition home or self-care (01) ==
LOC: EDUNIT# 19:55 → ER 19:56
DX: K80.20 Calculus of gallbladder without cholecystitis without obstruction (principal); E66.01 Morbid (severe) obesity due to excess calories; Z87.891 Personal history of nicotine dependence; Z77.22 Contact with and (suspected) exposure to environmental tobacco smoke (acute) (chronic); Z68.44 Body mass index [BMI] 60.0-69.9, adult
CPT/HCPCS: 36415; 71045; 80053; 81000; 83690; 84484; 84703; 85025; 86141; 87088; 93005

== ENCOUNTER 2019-04-27 18:11 | Emergency (ER) | payer OTHER ==
[~2019-04-27] VITALS: Ht 162.5 cm; Wt 165.3 kg
[~2019-04-27 18:11] MED LIST changes: +HYOS-6 PO; +PANT20TA3 PO
[2019-04-27] MEDS ORDERED: HYOSCYAMINE 0.125 MG (LEVSIN) TAB PO ONE (18:45)
[2019-04-27] MEDS ORDERED: KETOROLAC 30 MG/ML VIAL IVP ONE (18:45)
--- NOTE | 2019-04-27 18:56 | NUR ---
Received report from LETICIA Tong to assume care of pt.
[2019-04-27 19:28] LABS: BASOPHILS % (AUTO) 0 % (0-10); EOSINOPHILS # (AUTO) 0.1 10^3/uL (0.0-0.3); EOSINOPHILS % (AUTO) 1 % (0-10); HEMATOCRIT 42 % (35-52); HEMOGLOBIN 13.7 G/DL (11.5-16.0); LYMPHOCYTES # (AUTO) 2.6 X 10^3 (1.0-4.0); LYMPHOCYTES % (AUTO) 25 % (12-44); MEAN CORPUSCULAR HEMOGLOBIN 28 PG (25-34); MEAN CORPUSCULAR HGB CONC 33 G/DL (32-36); MEAN CORPUSCULAR VOLUME 86 FL (80-99); MEAN PLATELET VOLUME 12.9 FL (7.4-10.4); MONOCYTES # (AUTO) 0.7 X 10^3 (0.0-1.0); MONOCYTES % (AUTO) 7 % (0-12); NEUTROPHILS % (AUTO) 67 % (42-75); PLATELET COUNT 205 10^3/uL (130-400); WHITE BLOOD COUNT 10.5 10^3/uL (4.3-11.0)
--- NOTE | 2019-04-27 19:28 | ED General ---
General Chief Complaint: General Problems/Pain Stated Complaint: CONGESTED Nursing Triage Note: Pt to ED with multiple complaints. Pt reports congestion, chills, productive cough, vomiting, abdominal pain, and fatigue. Pt reports being scheduled for lyssa May 11, 2019. Pt describes stomach pain as, "It feels like someone is squeezing my stomach." Pt reports feeling as if the L arm feels, "Like there is a band around it." Pt is concerned about an abdominal infection and would also like to be checked for the flu. Nursing Sepsis Screen: No Definite Risk Source of Information: Patient Exam Limitations: No Limitations History of Present Illness Date Seen by Provider: Apr 27, 2019 Time Seen by Provider: 18:43 Initial Comments To ER with several complaints, intermittent epigastric abdominal pain radiating through the back, some intermittent sharp chest pains, intermittent shortness of breath, intermittent nausea. Nasal congestion. She has known cholelithiasis and is scheduled for cholecystectomy May [address] Michelle. At the time of pre sentation to ER she is without pain or nausea. Timing/Duration: Intermittent Severity: Moderate Associated Systoms: Cough, Diaphoresis, Fever/Chills, Nausea/Vomiting Allergies and Home Medications Allergies Coded Allergies: iron (Verified Allergy, Unknown, 04/27/19) Home Medications Cephalexin 500 Mg Capsule, 500 MG PO TID Prescribed by: ROLANDO ZHANG on 03/27/19 0941 Hyoscyamine Sulfate 0.125 Mg Tab.rapdis, 0.125 MG PO Q6H PRN for DIARRHEA Prescribed by: DEBRA CEBALLOS on 04/14/192226 Ondansetron 4 Mg Tab.rapdis, 4 MG SL Q4H PRN for NAUSEA/VOMITING Prescribed by: ROLANDO ZHANG on 03/27/19 0911 Pantoprazole Sodium 20 Mg Tablet.dr, 20 MG PO BID Prescribed by: DEBRA CEBALLOS on 04/14/192226 Patient Home Medication List Home Medication List Reviewed: Yes Review of Systems Review of Systems Constitutional: see HPI, chills, fever EENTM: see HPI Respiratory: see HPI, cough Genitourinary: no symptoms reported Musculoskeletal: no symptoms reported Skin: no symptoms reported Past Deshzdq-Cegyfj-Wbbutv Hx Patient Social History Alcohol Use: Denies Use Recreational Drug Use: No Smoking Status: Former Smoker Type Used: Cigarettes Former Smoker, Quit: Mar 09, 2015 2nd Hand Smoke Exposure: Yes Recent Foreign Travel: No Contact w/Someone Who Travel: No Recent Infectious Disease Expo: No Recent Hopitalizations: No Immunizations Up To Date Tetanus Booster (TDap): Less than 5yrs PED Vaccines UTD: Yes Seasonal Allergies Seasonal Allergies: No Past Medical History Surgeries: No Respiratory: No Cardiac: No Neurological: No Last Menstrual Period: Feb 28, 2019 Reproductive Disorders: Yes (IRREGULAR PERIODS) Female Reproductive Disorders: Menstrual Problems, Ovarian Cyst, Polycystic Ovarian Dis Sexually Transmitted Disease: No HIV/AIDS: No Genitourinary: No UTI (peds) Gastrointestinal: Yes Ulcer Musculoskeletal: No Endocrine: Yes (morbid obesity, PCOS) HEENT: No Cancer: No Psychosocial: Yes ADD/ADHD, Anxiety, Bipolar, Depression Integumentary: No Blood Disorders: No Family Medical History No Pertinent Family Hx Physical Exam Vital Signs Vital Signs - First Documented 04/27/19 18:20 Temp 36.9 Pulse 114 Resp 14 B/P (MAP) 157/104 (121) Pulse Ox 99 Capillary Refill : Less Than 3 Seconds Height, Weight, BMI Height: 5'4.00" Weight: 380lbs. oz. 172.458446kr; 62.00 BMI Method:Stated General Appearance: No Apparent Distress, WD/WN Eyes: Bilateral Eye Normal Inspection, Bilateral Eye PERRL, Bilateral Eye EOMI Neck: Full Range of Motion, Normal Inspection Respiratory: Normal Breath Sounds, No Accessory Muscle Use, No Respiratory Dist ress Cardiovascular: Normal Peripheral Pulses, Tachycardia Gastrointestinal: Non Tender, Soft Neurologic/Psychiatric: Alert, Oriented x3 Skin: Normal Color, Warm/Dry (I) Progress/Results/Core Measures Suspected Sepsis Recent Fever Within 48 Hours: No Infection Criteria Present: None New/Unexplained Altered Menta: No Sepsis Screen: No Definite Risk SIRS Temperature: Pulse: 114 Respiratory Rate: 14 Laboratory Tests 04/27/19 19:17: White Blood Count 10.5 Blood Pressure 157 /104 Mean: 121 Laboratory Tests 04/27/19 19:17: Creatinine 0.80, Platelet Count 205, Total Bilirubin 0.2 Results/Orders Lab Results Laboratory Tests Test 04/27/19 19:17 Range/Units White Blood Count 10.5 4.3-11.0 10^3/uL Red Blood Count 4.93 4.35-5.85 10^6/uL Hemoglobin 13.7 11.5-16.0 G/DL Hematocrit 42 35-52 % Mean Corpuscular Volume 86 80-99 FL Mean Corpuscular Hemoglobin 28 25-34 PG Mean Corpuscular Hemoglobin Concent 33 32-36 G/DL Red Cell Distribution Width 14.0 10.0-14.5 % Platelet Count 205 130-400 10^3/uL Mean Platelet Volume 12.9 H 7.4-10.4 FL Neutrophils (%) (Auto) 67 42-75 % Lymphocytes (%) (Auto) 25 12-44 % Monocytes (%) (Auto) 7 0-12 % Eosinophils (%) (Auto) 1 0-10 % Basophils (%) (Auto) 0 0-10 % Neutrophils # (Auto) 7.0 1.8-7.8 X 10^3 Lymphocytes # (Auto) 2.6 1.0-4.0 X 10^3 Monocytes # (Auto) 0.7 0.0-1.0 X 10^3 Eosinophils # (Auto) 0.1 0.0-0.3 10^3/uL Basophils # (Auto) 0.0 0.0-0.1 10^3/uL D-Dimer < 0.27 0.00-0.49 UG/ML Sodium Level 140 135-145 MMOL/L Potassium Level 4.1 3.6-5.0 MMOL/L Chloride Level 106 98-107 MMOL/L Carbon Dioxide Level 21 21-32 MMOL/L Anion Gap 13 5-14 MMOL/L Blood Urea Nitrogen 15 7-18 MG/DL Creatinine 0.80 0.60-1.30 MG/DL Estimat Glomerular Filtration Rate > 60 BUN/Creatinine Ratio 19 Glucose Level 88 70-105 MG/DL Calcium Level 9.3 8.5-10.1 MG/DL Corrected Calcium 9.2 8.5-10.1 MG/DL Total Bilirubin 0.2 0.1-1.0 MG/DL Aspartate Amino Transf (AST/SGOT) 20 5-34 U/L Alanine Aminotransferase (ALT/SGPT) 31 0-55 U/L Alkaline Phosphatase 111 40-136 U/L Total Protein 7.1 6.4-8.2 GM/DL Albumin 4.1 3.2-4.5 GM/DL Lipase 14 8-78 U/L Micro Results Microbiology 04/27/19 Influenza Types A,B Antigen (AYDEN) - Final, Complete My Orders Orders - JAEL TOTH APRN Influenza A And B Antigens (04/27/19 18:29) Cbc With Automated Diff (04/27/19 18:29) Ed Iv/Invasive Line Start (04/27/19 18:38) Comprehensive Metabolic Panel (04/27/19 18:38) Lipase (04/27/19 18:38) Ketorolac Injection (Toradol Injection) (04/27/19 18:45) Hyoscyamine Sl Tablet (Levsin Sl Tablet) (04/27/19 18:45) Fibrin Degradation Products (04/27/19 18:51) Vital Signs/I&O 04/27/19 18:20 Temp 36.9 Pulse 114 Resp 14 B/P (MAP) 157/104 (121) Pulse Ox 99 Capillary Refill : Less Than 3 Seconds Blood Pressure Mean: 121 Departure Impression Primary Impression: Viral syndrome Additional Impression: Cholelithiasis Disposition: 01 HOME, SELF-CARE Condition: Stable Departure-Patient Inst. Decision time for Depature: 20:15 Referrals: [facility] (PCP) Primary Care Physician TASNEEM VINSON APRN (Family) Primary Care Physician Patient Instructions: Gallstones (DC) Add. Discharge Instructions: 1. Return to ER for any concerns 2. Follow-up with your doctor next week 3. All discharge instructions reviewed with patient and/or family. Voiced understanding. Scripts Hydrocodone/Acetaminophen ([place] 5-325 Tablet) 1 Each Tablet 1 TAB PO Q4-6HR for Pain MDD 10 TABS for 7 Days, #10 TAB Prov: JAEL TOTH APRN 04/27/19 JAEL TOTH APRN Apr 27, 2019 19:28
[2019-04-27 19:55] LABS: ALANINE AMINOTRANSFERASE 31 U/L (0-55); ALBUMIN 4.1 GM/DL (3.2-4.5); ALKALINE PHOSPHATASE 111 U/L (40-136); BILIRUBIN,TOTAL 0.2 MG/DL (0.1-1.0); BUN/CREATININE RATIO 19; CALCIUM 9.3 MG/DL (8.5-10.1); CARBON DIOXIDE 21 MMOL/L (21-32); CHLORIDE 106 MMOL/L (98-107); GFR ESTIMATED > 60; GLUCOSE 88 MG/DL (70-105); LIPASE 14 U/L (8-78); POTASSIUM 4.1 MMOL/L (3.6-5.0); SODIUM 140 MMOL/L (135-145); TOTAL PROTEIN 7.1 GM/DL (6.4-8.2)
[2019-04-27] MEDS ORDERED: HYDR-4226 PO (20:29)
[2019-04-27] MEDS ORDERED: RX-HYDROCODONE/APAP 5/325 MG #4 TAB PK PO PRN (20:30)
[2019-04-27 20:56] VITALS: BP 130/109
== END 2019-04-27 20:59 | disposition home or self-care (01) ==
LOC: EDUNIT# 18:11 → ER 18:12
DX: K80.20 Calculus of gallbladder without cholecystitis without obstruction (principal); B34.9 Viral infection, unspecified; E66.01 Morbid (severe) obesity due to excess calories; Z88.8 Allergy status to other drugs, medicaments and biological substances; Z87.891 Personal history of nicotine dependence; Z68.44 Body mass index [BMI] 60.0-69.9, adult
CPT/HCPCS: 36415; 80053; 83690; 85025; 85379; 87804

== ENCOUNTER 2019-05-04 05:35 | Outpatient (CLI) | payer OTHER ==
[~2019-05-04] VITALS: Ht 162 cm; Wt 160.0 kg
[~2019-05-04 05:35] MED LIST changes: +HYDR-4226 PO
[2019-05-04] MEDS ORDERED: IBUP-1780 PO (10:24)
== END 2019-05-04 10:44 | disposition home or self-care (01) ==
LOC: PREOP 05:35
PROVIDERS: ATTEND Surgery
DX: Z01.818 Encounter for other preprocedural examination (principal)

== ENCOUNTER 2019-05-12 19:53 | Emergency (ER) | payer OTHER ==
[~2019-05-12] VITALS: Ht 162 cm; Wt 160.0 kg
[~2019-05-12 19:53] MED LIST changes: +ACHYD1T PO; +IBUP-1780 PO
[2019-05-12 20:16] VITALS: BP 131/94
--- NOTE | 2019-05-12 21:01 | ED Abdominal Pain ---
General Chief Complaint: Post OP Complications/Pain Stated Complaint: POST SURGERY ISSUES Nursing Triage Note: PT STATES HAVING HER GALLBLADDER TAKEN OUT YESTERDAY BY DR. DONAHUE, CC ABD PAIN Sepsis Screen: No Definite Risk Source of Information: Patient Exam Limitations: No Limitations History of Present Illness Date Seen by Provider: May 12, 2019 Time Seen by Provider: 20:59 Initial Comments To ER with reports diffuse abdominal pain. She had left cholecystectomy yesterday by Dr. Donahue. she denies fevers or chills. She is having bowel moveme nts. She presents today with a diffuse abdominal pain. She has not taken any of her hydrocodone since yesterday. Timing/Duration: 1-2 Days Severity/Quality: Moderate, Cramping Radiation: No Radiation Activities at Onset: None Associated Symptoms: Nausea/Vomiting Allergies and Home Medications Allergies Coded Allergies: iron (Verified Allergy, Unknown, FROM CHILDHOOD, 05/04/19) Home Medications Hydrocodone Bit/Acetaminophen 1 Ea Tab, 1 TAB PO Q6H Prescribed by: ALLYSON DONAHUE on 05/11/19 0941 Ibuprofen 800 Mg Tablet, 800 MG PO Q8H PRN for PAIN-MILD, (Reported) Ondansetron 4 Mg Tab.rapdis, 4 MG SL Q4H PRN for NAUSEA/VOMITING Prescribed by: ROLANDO ZHANG on 03/27/19 0911 Patient Home Medication List Home Medication List Reviewed: Yes Review of Systems Review of Systems Constitutional: see HPI EENTM: No Symptoms Reported Respiratory: No Symptoms Reported Gastrointestinal: See HPI, Abdominal Pain Genitourinary: No Symptoms Reported Musculoskeletal: no symptoms reported Skin: no symptoms reported Psychiatric/Neurological: No Symptoms Reported Endocrine: No Symptoms Reported Hematologic/Lymphatic: No Symptoms Reported Past Nxulmfq-Gcizgs-[place]ai Hx Patient Social History Type Used: Cigarettes Former Smoker, Quit: Mar 09, 2015 2nd Hand Smoke Exposure: Yes Recent Foreign Travel: No Contact w/Someone Who Travel: No Recent Infectious Disease Expo: No Recent Hopitalizations: No Immunizations Up To Date Tetanus Booster (TDap): Less than 5yrs PED Vaccines UTD: Yes Seasonal Allergies Seasonal Allergies: No Past Medical History Surgeries: Yes (WISDOM TEETH) Respiratory: No Cardiac: Yes Palpitations Neurological: Yes Headaches /Migraines : No Last Menstrual Period: Mar 01, 2019 Reproductive Disorders: Yes (IRREGULAR PERIODS) Female Reproductive Disorders: Menstrual Problems, Ovarian Cyst, Polycystic Ovarian Dis Sexually Transmitted Disease: No HIV/AIDS: No Genitourinary: No UTI (peds) Gastrointestinal: Yes Gastroesophageal Reflux, Ulcer, Gall Bladder Disease Musculoskeletal: No Endocrine: Yes (morbid obesity, PCOS, HYPOGLYCEMIC) HEENT: No Loss of Vision: Denies Hearing Impairment: Denies Cancer: No Psychosocial: Yes (HX DEPRESSION, PANIC ATTACKS-SEVERE ANXIETY) Anxiety, Depression Integumentary: Yes Eczema Blood Disorders: No Adverse Reaction/Blood Tranf: No (N/A) Family Medical History No Pertinent Family Hx Physical Exam Vital Signs Vital Signs - First Documented 05/12/19 20:16 Temp 36.7 Pulse 113 Resp 22 B/P (MAP) 131/94 (106) Pulse Ox 100 O2 Delivery Room Air Capillary Refill : Less Than 3 Seconds Height/Weight/BMI Height: 5'4.00" Weight: 380lbs. oz. 172.440533nm; 60.00 BMI Method:Stated General Appearance: WD/WN, no apparent distress HEENT: PERRL/EOMI, normal ENT inspection Neck: non-tender, full range of motion Respiratory: no respiratory distress, no accessory muscle use Cardiovascular: regular rate, rhythm, no murmur Gastrointestinal: normal bowel sounds, soft, other (Incisions incisions are clean dry and intact. Is in no distress, she is not febrile. I'll have her take half of one of her 10 mg hydrocodone tablets and reevaluate. She still has intolerable pain then I will pursue a further workup. Otherwise I will treat this as normal postoperative pain.) Neurologic/Psychiatric: alert, normal mood/affect, oriented x 3 Skin: normal color, warm/dry Progress/Results/Core Measures Results/Orders Vital Signs/I&O 05/12/19 20:16 Temp 36.7 Pulse 113 Resp 22 B/P (MAP) 131/94 (106) Pulse Ox 100 O2 Delivery Room Air Blood Pressure Mean: 106 Departure Communication (Admissions) She doesn't like the way the hydrocodone makes her feel, I'll use some tramadol see if that is better tolerated. Impression Primary Impression: Postoperative pain Disposition: HOME, SELF-CARE Condition: Stable Departure-Patient Inst. Decision time for Depature: 21:15 Referrals: [facility] (PCP) Primary Care Physician TASNEEM VINSON APRN (Family) Primary Care Physician Patient Instructions: Managing Pain After Surgery Add. Discharge Instructions: 1. Medication as directed 2. JAEL TOTH APRN May 12, 2019 21:01
[2019-05-12] MEDS ORDERED: TRAM-42 PO (21:16)
--- OUTSIDE RECORDS SUMMARY | 2019-05-17 00:23 | XMS REPORT | Continuity of Care Document ---
Demographics x Preferred Language Unknown Marital Status Unknown Mu-Ism Affiliation Unknown Race Unknown Ethnic Group Unknown Author Organization Unknown Address Unknown Phone Unavailable Allergies Active Description Code Type Severity Reaction Onset Reported/Identified Relationship to Patient Clinical Status Yes No known drug allergies [id number] ND N/A N/A Yes NO KNOWN DRUG ALLERGIES NO KNOWN DRUG ALLERG UNKNOWN Medications There is no data. Problems Date Dx Coded Attending Type Code Diagnosis Diagnosed By 06/20/2014 PALMA GRANT APRN 4 62 ACUTE PHARYNGITIS 06/20/2014 PALMA GRANT APRN 786.2 COUGH 06/20/2014 EFFIE PALENCIA APRN 46 2 ACUTE PHARYNGITIS 06/20/2014 EFFIE PALENCIA APRN 78 6.2 COUGH 06/22/2014 EFFIE PALENCIA APRN V25.01 CONTRACEPTION - ORAL CONTRACEPTION 03/18/2016 Jina Durham 845.00 UNSPECIFIED SITE OF ANKLE SPRAIN 03/18/2016 Jina Durham S93.40 SPRAIN OF UNSPECIFIED LIGAMENT OF ANKLE 03/18/2016 Jina Durham S93.402 A SPRAIN OF UNSPECIFIED LIGAMENT OF LEFT ANKLE, INIT ENCNTR Procedures Code [place] [address] PREG BENITO TEST, URINE (IN- HOUSE) 06/22/2014 Results Test [...] CREA 0.80 MG/DL 0.6-1.0 EGFR 96 eGFR >= 60 GLU 99 MG/DL 70-105 K 4.1 MEQ/L [...] CREA 0.79 MG/DL 0.6-1.0 EGFR 97 eGFR >= 60 GLU 90 MG/DL 70-105 K 4.1 MEQ/L [...] NORBC SQUAMOUS EPITHELIAL CELLS 2+ BACTERIA 1+ hCG,Beta Subunit,Qual,Serum - 12/31/15 1 1:03 hCG,Beta Subunit,Qual,Serum Negative mIU/mL Negative <6 TSH+Free T4 - 07/10/16 10:28 TSH 5.420 uIU/mL 0.450-4.500 T4,Free(Direct) 1.14 ng/dL 0.93-1.60 Comp. Metabolic Panel (14) - 07/10/16 10 :28 Glucose, Serum 98 mg/dL 65-99 BUN 12 mg/dL 5-18 Creatinine, Serum 0.85 mg/dL 0.57-1.00 eGFR If NonAfricn Am TNP mL/min/1.73 eGFR If Africn Am TNP mL/min/1.73 BUN/Creatinine Ratio 10-22 Sodium, Serum 142 mmol/L 134-144 Potassium, [...] mg/dL 0-109 Testosterone, Total, LC/MS - 07/10/16 10 :28 Testosterone, Total, LC/MS 36 ng/dL Prolactin - 05/04/17 10:28 Prolactin 24.0 ng/mL 4.8-23.3 Insulin - 07/10/16 10:28 Insulin 38.3 uIU/mL 2.6-24.9 Encounters ACCT No. Visit Date/Time Discharge Status Pt. Type Provider Facility Loc./Unit Complaint [id number] 03/27/2015 09:55:00 03/27/2015 14:24 :00 DIS Emergency DC HAW[facility] EMR [id number] 02/20/2015 18:21:00 02/20/2015 20:03 :00 DIS Emergency PAOLA CANO [facility] EMR [id number] 02/05/2015 00:00:00 Document Registration [id number] 02/05/2014 00:00:00 Document Registration [id number] 03/18/2016 20:09:00 03/18/2016 20:48: 00 [id number] 10/18/2015 10:45:06 ACT Unknown [id number] 01/01/2016 08:06:00 Document Registration [id number] 06/22/2014 17:01:00 06/22/2014 23:59: 59 CLS Outpatient EFFIE PALENCIA APRN [id number] 06/20/2014 17:29:00 06/20/2014 23:59: 59 CLS Outpatient PALMA GRANT APRN [id number] 07/15/2016 14:11:00 Document Registration
== END 2019-05-12 21:39 | disposition home or self-care (01) ==
LOC: EDUNIT# 19:53 → ER 19:55
DX: G89.18 Other acute postprocedural pain (principal); E66.01 Morbid (severe) obesity due to excess calories; Z90.49 Acquired absence of other specified parts of digestive tract; Z68.44 Body mass index [BMI] 60.0-69.9, adult; Z88.8 Allergy status to other drugs, medicaments and biological substances; Z77.22 Contact with and (suspected) exposure to environmental tobacco smoke (acute) (chronic); Z87.891 Personal history of nicotine dependence
CPT/HCPCS: 99281

== ENCOUNTER → 2019-09-22 | Outpatient (CLI) | payer OTHER ==
[~2019-09-22] MED LIST changes: +TRAM-42 PO
== END ==
LOC: CARD 10:35
PROVIDERS: ATTEND Nurse Practitioner Family
DX: R07.9 Chest pain, unspecified (principal); R00.2 Palpitations; R06.00 Dyspnea, unspecified; E66.01 Morbid (severe) obesity due to excess calories; Z68.44 Body mass index [BMI] 60.0-69.9, adult
CPT/HCPCS: 93225; 93226; 93306

== ENCOUNTER → 2019-11-15 | Outpatient (CLI) | payer SELFPAY ==
--- NOTE | 2019-11-15 10:24 | Diagnostic Imaging Report ---
INDICATION: Abdominal pain. PROCEDURE: Ultrasound abdomen complete. TECHNIQUE: Multiple Real-time grayscale images were obtained of the abdomen in various projections. FINDINGS: The overall quality of the study is somewhat limited due to the patient's increased body habitus. The liver is normal in size at 17.3 cm. No discrete liver mass is detected. The portal vein is patent and shows normal direction of flow. The gallbladder is surgically absent. No definite biliary ductal dilatation is seen. The pancreas is obscured by bowel gas. The spleen is normal in size at 11.1 cm. The aorta is nonaneurysmal. The IVC is patent. The right and left kidneys are without evidence of calculi or hydronephrosis. There is no ascites. IMPRESSION: Somewhat limited due to patient body habitus. There are postop changes of cholecystectomy. No significant abnormality is detected. Dictated by: Dictated on workstation # [id number]
== END ==
LOC: RAD 09:00
PROVIDERS: ATTEND Family Medicine
DX: R10.9 Unspecified abdominal pain (principal); Z90.49 Acquired absence of other specified parts of digestive tract
CPT/HCPCS: 76700

== ENCOUNTER 2020-03-11 19:42 | Emergency (ER) | payer SELFPAY ==
[~2020-03-11] VITALS: Ht 162.5 cm; Wt 165.0 kg
[~2020-03-11 19:42] MED LIST changes: +PANT20TA18 PO; -PANT20TA3 PO
[2020-03-11 19:58] VITALS: BP 138/104
[2020-03-11] MEDS ORDERED: PRD20T PO (20:14)
[2020-03-11] MEDS ORDERED: RT-ALBUINH IH (20:14)
--- NOTE | 2020-03-11 20:14 | ED Cough/URI ---
General Stated Complaint: COUGH Source: patient Exam Limitations: no limitations History of Present Illness Date Seen by Provider: Mar 11, 2020 Time Seen by Provider: 20:11 Initial Comments Nonproductive cough for 2 weeks without fevers or chills or any other symptoms. She is on Clomid for fertility as she is trying to get . Timing/Duration: other Associated Symptoms: cough Allergies and Home Medications Allergies Coded Allergies: iron (Verified Allergy, Unknown, FROM CHILDHOOD, 05/04/19) Home Medications Hydrocodone Bit/Acetaminophen 1 Ea Tab, 1 TAB PO Q6H Prescribed by: ALLYSON DONAHUE on 05/11/19 0941 Ibuprofen 800 Mg Tablet, 800 MG PO Q8H PRN for PAIN-MILD, (Reported) Ondansetron 4 Mg Tab.rapdis, 4 MG SL Q4H PRN for NAUSEA/VOMITING Prescribed by: ROLANDO ZHANG on 03/27/19 0911 Tramadol HCl 50 Mg Tablet, 50 MG PO Q6H PRN for PAIN-MODERATE (5-7) Prescribed by: JAEL TOTH on 05/12/19 2117 Patient Home Medication List Home Medication List Reviewed: Yes Review of Systems Review of Systems Constitutional: see HPI EENTM: see HPI Respiratory: see HPI, cough Cardiovascular: no symptoms reported Genitourinary: no symptoms reported Musculoskeletal: no symptoms reported Skin: no symptoms reported Psychiatric/Neurological: No Symptoms Reported Hematologic/Lymphatic: No Symptoms Reported Past Lpmrzvs-Vhckzj-Zjbtst Hx Patient Social History Type Used: Cigarettes Former Smoker, Quit: Mar 09, 2015 2nd Hand Smoke Exposure: Yes Recent Hopitalizations: No Immunizations Up To Date Tetanus Booster (TDap): Less than 5yrs PED Vaccines UTD: Yes Seasonal Allergies Seasonal Allergies: No Past Medical History Surgeries: Yes (WISDOM TEETH) Respiratory: No Cardiac: Yes Palpitations Neurological: Yes Headaches /Migraines Reproductive Disorders: Yes (IRREGULAR PERIODS) Female Reproductive Disorders: Menstrual Problems, Ovarian Cyst, Polycystic Ovarian Dis Sexually Transmitted Disease: No HIV/AIDS: No Genitourinary: No UTI (peds) Gastrointestinal: Yes Gastroesophageal Reflux, Ulcer, Gall Bladder Disease Musculoskeletal: No Endocrine: Yes (morbid obesity, PCOS, HYPOGLYCEMIC) HEENT: No Loss of Vision: Denies Hearing Impairment: Denies Cancer: No Psychosocial: Yes (HX DEPRESSION, PANIC ATTACKS-SEVERE ANXIETY) Anxiety, Depression Integumentary: Yes Eczema Blood Disorders: No Adverse Reaction/Blood Tranf: No (N/A) Family Medical History No Pertinent Family Hx Physical Exam Capillary Refill : Height: 5'4.00" Weight: 380lbs. oz. 172.791054fy; 60.00 BMI Method:Stated General Appearance: WD/WN, no apparent distress, other (100% on room air) Eyes: Bilateral Eye Normal Inspection, Bilateral Eye PERRL Neck: non-tender, full range of motion Respiratory: lungs clear, normal breath sounds, no respiratory distress, no accessory muscle use Cardiovascular: no murmur, tachycardia Gastrointestinal: normal bowel sounds, non tender, soft Extremities: normal range of motion, non-tender Neurologic/Psychiatric: alert, normal mood/affect, oriented x 3 Skin: normal color, warm/dry Progress/Results/Core Measures Suspected Sepsis SIRS Temperature: Pulse: Respiratory Rate: Blood Pressure / Mean: Results/Orders My Orders Orders - JAEL TOTH APRN Chest 1 View, Ap/Pa Only (03/11/20 20:10) Influenza A And B Antigens (03/11/20 20:10) Covid 19 Inhouse Test (03/11/20 20:10) Vital Signs/I&O Capillary Refill : Departure Impression Primary Impression: Upper respiratory infection Disposition: HOME, SELF-CARE Condition: Stable Departure-Patient Inst. Decision time for Depature: 20:12 Referrals: [facility] [place] Primary Care Physician TASNEEM VINSON APRN (Family) Primary Care Physician Patient Instructions: Viral Upper Respiratory Infection, Adult (DC) Add. Discharge Instructions: 1. Call your fertility doctor tomorrow to ask about using the albuterol inhaler and steroid. Return to ER for any concerns. Scripts Prednisone (Prednisone) 20 Mg Tab 40 MG PO DAILY, #6 TAB 0 Refills Prov: JAEL TOTH APRN 03/11/20 Albuterol Sulfate (PROAIR HFA) 1 Puff Puff 2 PUFF IH Q4H PRN for SHORTNESS OF BREATH, #1 PUFF 1 PUFF = 90 MCG Prov: JAEL TOTH APRN 03/11/20 JAEL TOTH APRN Mar 11, 2020 20:14
--- NOTE | 2020-03-11 20:51 | Diagnostic Imaging Report ---
EXAM: Chest 1 view, AP/PA only. INDICATION: Cough. COMPARISON: Chest radiograph 04/14/2019. FINDINGS: Normal heart size and pulmonary vascularity. No dense consolidation, pleural effusion or pneumothorax. No acute osseous finding. IMPRESSION: Negative chest. Dictated by: Dictated on workstation # [id number]
== END 2020-03-11 20:38 | disposition home or self-care (01) ==
LOC: EDUNIT# 19:42 → ER 19:44
DX: J06.9 Acute upper respiratory infection, unspecified (principal); E66.01 Morbid (severe) obesity due to excess calories; Z87.891 Personal history of nicotine dependence; Z20.828 Contact with and (suspected) exposure to other viral communicable diseases; Z68.44 Body mass index [BMI] 60.0-69.9, adult
CPT/HCPCS: 71045; 87804; 99283; U0002; 87635

== ENCOUNTER 2020-04-22 14:55 | Emergency (ER) | payer SELFPAY ==
[~2020-04-22] VITALS: Ht 162.5 cm; Wt 165.1 kg
[~2020-04-22 14:55] MED LIST changes: +PRD20T PO; +RT-ALBUINH IH
--- NOTE | 2020-04-22 15:21 | ED Dyspnea ---
General Stated Complaint: COVID POSITIVE 04/14, SOB Source of Information: Patient Exam Limitations: No Limitations History of Present Illness Date Seen by Provider: Apr 22, 2020 Time Seen by Provider: 15:20 Initial Comments To ER with reports of shortness of breath onset today. She tested positive for Covid on 04/14. She was actually exposed on the but for what ever reason was tested on the (though she was asymptomatic) with the hopes that she could come out of quarantine if the test was negative. Coincidentally she tested positive. No symptoms other than shortness of breath which began today. Timing/Duration: 4-6 Hours Severity: Moderate Prior Episodes/Possible Cause: No Prior Episodes Associated Symptoms: Denies Symptoms Allergies and Home Medications Allergies Coded Allergies: iron (Verified Allergy, Unknown, FROM CHILDHOOD, 05/04/19) Home Medications Albuterol Sulfate 1 Puff Puff, 2 PUFF IH Q4H PRN for SHORTNESS OF BREATH 1 PUFF = 90 MCG Prescribed by: JAEL TOTH on 03/11/202013 Hydrocodone Bit/Acetaminophen 1 Ea Tab, 1 TAB PO Q6H Prescribed by: ALLYSON DONAHUE on 05/11/19 0941 Ibuprofen 800 Mg Tablet, 800 MG PO Q8H PRN for PAIN-MILD, (Reported) Ondansetron 4 Mg Tab.rapdis, 4 MG SL Q4H PRN for NAUSEA/VOMITING Prescribed by: ROLANDO ZHANG on 03/27/19 0911 Prednisone 20 Mg Tab, 40 MG PO DAILY Prescribed by: JAEL TOTH on 03/11/202013 Tramadol HCl 50 Mg Tablet, 50 MG PO Q6H PRN for PAIN-MODERATE (5-7) Prescribed by: JAEL TOTH on 05/12/192116 Patient Home Medication List Home Medication List Reviewed: Yes Review of Systems Review of Systems Constitutional: see HPI EENTM: see HPI Respiratory: see HPI; No cough; short of breath Cardiovascular: no symptoms reported; No chest pain Musculoskeletal: no symptoms reported Skin: no symptoms reported Psychiatric/Neurological: No Symptoms Reported Endocrine: No Symptoms Reported Hematologic/Lymphatic: No Symptoms Reported Past Iqoziwz-Jucpdz-Fydpew Hx Patient Social History Type Used: Cigarettes Former Smoker, Quit: Mar 09, 2015 2nd Hand Smoke Exposure: Yes Recent Hopitalizations: No Immunizations Up To Date Tetanus Booster (TDap): Less than 5yrs PED Vaccines UTD: Yes Seasonal Allergies Seasonal Allergies: No Past Medical History Surgeries: Yes (WISDOM TEETH) Gallbladder Respiratory: No Cardiac: Yes Palpitations Neurological: Yes Headaches /Migraines Reproductive Disorders: Yes (IRREGULAR PERIODS) Female Reproductive Disorders: Menstrual Problems, Ovarian Cyst, Polycystic Ovarian Dis Sexually Transmitted Disease: No HIV/AIDS: No Genitourinary: No UTI (peds) Gastrointestinal: Yes Gastroesophageal Reflux, Ulcer, Gall Bladder Disease Musculoskeletal: No Endocrine: Yes (morbid obesity, PCOS, HYPOGLYCEMIC) HEENT: No Loss of Vision: Denies Hearing Impairment: Denies Cancer: No Psychosocial: Yes (HX DEPRESSION, PANIC ATTACKS-SEVERE ANXIETY) Anxiety, Depression Integumentary: Yes Eczema Blood Disorders: No Adverse Reaction/Blood Tranf: No (N/A) Family Medical History No Pertinent Family Hx Physical Exam Vital Signs Vital Signs - First Documented 04/22/20 15:05 Temp 36.8 Pulse 118 Resp 20 B/P (MAP) 159/124 (136) Pulse Ox 100 O2 Delivery Room Air Capillary Refill : Height, Weight, BMI Height: 5'4.00" Weight: 380lbs. oz. 172.574894oc; 62.00 BMI Method:Stated General Appearance: No Apparent Distress, WD/WN, Obese, Other (Alert oriented very pleasant no distress heart rate 115, oxygen saturation 99% room air) Neck: Full Range of Motion, Normal Inspection Respiratory: No Accessory Muscle Use, No Respiratory Distress Cardiovascular: Regular Rate, Rhythm, Normal Peripheral Pulses Gastrointestinal: Normal Bowel Sounds, Non Tender, Soft Extremity: Normal Capillary Refill, Normal Inspection Neurologic/Psychiatric: Alert, Oriented x3 Skin: Normal Color, Warm/Dry Progress/Results/Core Measures Results/Orders Lab Results Laboratory Tests Test 04/22/20 15:15 Range/Units White Blood Count 10.3 4.3-11.0 10^3/uL Red Blood Count 5.21 H 3.80-5.11 10^6/uL Hemoglobin 13.5 11.5-16.0 g/dL Hematocrit 44 35-52 % Mean Corpuscular Volume 84 80-99 fL Mean Corpuscular Hemoglobin 26 25-34 pg Mean Corpuscular Hemoglobin Concent 31 L 32-36 g/dL Red Cell Distribution Width 14.3 10.0-14.5 % Platelet Count 227 130-400 10^3/uL Mean Platelet Volume 12.8 H 9.0-12.2 fL Immature Granulocyte % (Auto) 0 % Neutrophils (%) (Auto) 69 42-75 % Lymphocytes (%) (Auto) 24 12-44 % Monocytes (%) (Auto) 5 0-12 % Eosinophils (%) (Auto) 1 0-10 % Basophils (%) (Auto) 0 0-10 % Neutrophils # (Auto) 7.2 1.8-7.8 10^3/uL Lymphocytes # (Auto) 2.4 1.0-4.0 10^3/uL Monocytes # (Auto) 0.6 0.0-1.0 10^3/uL Eosinophils # (Auto) 0.1 0.0-0.3 10^3/uL Basophils # (Auto) 0.0 0.0-0.1 10^3/uL Immature Granulocyte # (Auto) 0.0 0.0-0.1 10^3/uL D-Dimer 0.30 0.00-0.49 UG/ML Sodium Level 141 135-145 MMOL/L Potassium Level 3.9 3.6-5.0 MMOL/L Chloride Level 107 98-107 MMOL/L Carbon Dioxide Level 23 21-32 MMOL/L Anion Gap 11 5-14 MMOL/L Blood Urea Nitrogen 15 7-18 MG/DL Creatinine 0.84 0.60-1.30 MG/DL Estimat Glomerular Filtration Rate > 60 BUN/Creatinine Ratio 18 Glucose Level 110 H 70-105 MG/DL Calcium Level 8.9 8.5-10.1 MG/DL Corrected Calcium 8.8 8.5-10.1 MG/DL Total Bilirubin 0.2 0.1-1.0 MG/DL Aspartate Amino Transf (AST/SGOT) 19 5-34 U/L Alanine Aminotransferase (ALT/SGPT) 26 0-55 U/L Alkaline Phosphatase 96 40-136 U/L C-Reactive Protein High Sensitivity 1.46 H 0.00-0.50 MG/DL Total Protein 7.4 6.4-8.2 GM/DL Albumin 4.1 3.2-4.5 GM/DL Procalcitonin 0.03 <0.10 NG/ML Serum Test, Qualitative NEGATIVE NEGATIVE My Orders Orders - JAEL TOTH APRN Cbc With Automated Diff (04/22/20 15:13) Hcg,Qualitative Serum (04/22/20 15:13) Comprehensive Metabolic Panel (04/22/20 15:13) Fibrin Degradation Products (04/22/20 15:13) Hs C Reactive Protein (04/22/20 15:13) Procalcitonin (Pct) (04/22/20 15:13) Chest 1 View, Ap/Pa Only (04/22/20 15:19) Vital Signs/I&O 04/22/20 15:05 Temp 36.8 Pulse 118 Resp 20 B/P (MAP) 159/124 (136) Pulse Ox 100 O2 Delivery Room Air Departure Impression Primary Impression: Dyspnea Additional Impression: COVID-19 Disposition: 01 HOME, SELF-CARE Condition: Stable Departure-Patient Inst. Decision time for Depature: 16:12 Referrals: [facility] (PCP) Primary Care Physician TASNEEM VINSON APRN (Family) Primary Care Physician Patient Instructions: Shortness of Breath (Dyspnea) Add. Discharge Instructions: 1. Take the steroids as directed. Return to ER for any concerns. Follow-up with your doctor next week. Scripts Dexamethasone (Dexamethasone) 6 Mg Tablet 6 MG PO DAILY, #5 TAB Prov: JAEL TOTH APRN 04/22/20 Work/School Note: Work Release Form Date Seen in the Emergency Department: Apr 22, 2020 Return to Work: Apr 25, 2020 JAEL TOTH APRN Apr 22, 2020 15:21
[2020-04-22 15:27] LABS: HEMOGLOBIN 13.5 g/dL (11.5-16.0); WHITE BLOOD COUNT 10.3 10^3/uL (4.3-11.0)
[2020-04-22 15:28] LABS: BASOPHILS % (AUTO) 0 % (0-10); EOSINOPHILS # (AUTO) 0.1 10^3/uL (0.0-0.3); EOSINOPHILS % (AUTO) 1 % (0-10); HEMATOCRIT 44 % (35-52); LYMPHOCYTES # (AUTO) 2.4 10^3/uL (1.0-4.0); LYMPHOCYTES % (AUTO) 24 % (12-44); MEAN CORPUSCULAR HEMOGLOBIN 26 pg (25-34); MEAN CORPUSCULAR HGB CONC 31 g/dL (32-36); MEAN CORPUSCULAR VOLUME 84 fL (80-99); MEAN PLATELET VOLUME 12.8 fL (9.0-12.2); MONOCYTES # (AUTO) 0.6 10^3/uL (0.0-1.0); MONOCYTES % (AUTO) 5 % (0-12); NEUTROPHILS # (AUTO) 7.2 10^3/uL (1.8-7.8); NEUTROPHILS % (AUTO) 69 % (42-75); PLATELET COUNT 227 10^3/uL (130-400)
[2020-04-22 15:37] LABS: ALBUMIN 4.1 GM/DL (3.2-4.5); CHLORIDE 107 MMOL/L (98-107); POTASSIUM 3.9 MMOL/L (3.6-5.0); SODIUM 141 MMOL/L (135-145)
[2020-04-22 15:38] LABS: CALCIUM 8.9 MG/DL (8.5-10.1)
[2020-04-22 15:40] LABS: GLUCOSE 110 MG/DL (70-105); TOTAL PROTEIN 7.4 GM/DL (6.4-8.2)
[2020-04-22 15:41] LABS: BILIRUBIN,TOTAL 0.2 MG/DL (0.1-1.0); CARBON DIOXIDE 23 MMOL/L (21-32)
[2020-04-22 15:43] LABS: ALKALINE PHOSPHATASE 96 U/L (40-136); CREATININE SERUM 0.84 MG/DL (0.60-1.30); GFR ESTIMATED > 60
[2020-04-22 15:44] LABS: BUN/CREATININE RATIO 18
[2020-04-22 15:46] LABS: ALANINE AMINOTRANSFERASE 26 U/L (0-55)
--- NOTE | 2020-04-22 16:01 | Diagnostic Imaging Report ---
INDICATION: soa covid +. TECHNIQUE: Single view chest 3:50 PM. CORRELATION STUDY: 03/11/2020 FINDINGS: The heart size, mediastinal configuration and pulmonary vascularity are within normal limits. The lungs are clear with no consolidating infiltrate. There is no significant effusion or pneumothorax. IMPRESSION: 1. Negative appearing portable chest. Dictated by: Dictated on workstation # [id number]
[2020-04-22] MEDS ORDERED: DEXA6TAB PO (16:14)
[2020-04-22 16:25] VITALS: BP 148/98
== END 2020-04-22 16:25 | disposition home or self-care (01) ==
LOC: EDUNIT# 14:55 → ER 14:57
DX: U07.1 COVID-19 (principal); R06.00 Dyspnea, unspecified; E66.01 Morbid (severe) obesity due to excess calories; Z68.44 Body mass index [BMI] 60.0-69.9, adult; Z87.891 Personal history of nicotine dependence; Z79.52 Long term (current) use of systemic steroids
CPT/HCPCS: 36415; 71045; 80053; 84145; 84703; 85025; 85379; 86141

== ENCOUNTER 2020-06-20 13:17 | Emergency (ER) | payer SELFPAY ==
[~2020-06-20] VITALS: Ht 162 cm; Wt 168.0 kg
[~2020-06-20 13:17] MED LIST changes: +DEXA6TAB PO
[2020-06-20 13:47] LABS: BASOPHILS % (AUTO) 0 % (0-10); EOSINOPHILS # (AUTO) 0.1 10^3/uL (0.0-0.3); EOSINOPHILS % (AUTO) 1 % (0-10); HEMATOCRIT 44 % (35-52); HEMOGLOBIN 13.8 g/dL (11.5-16.0); LYMPHOCYTES # (AUTO) 2.2 10^3/uL (1.0-4.0); LYMPHOCYTES % (AUTO) 27 % (12-44); MEAN CORPUSCULAR HEMOGLOBIN 27 pg (25-34); MEAN CORPUSCULAR HGB CONC 31 g/dL (32-36); MEAN CORPUSCULAR VOLUME 85 fL (80-99); MEAN PLATELET VOLUME 12.5 fL (9.0-12.2); MONOCYTES # (AUTO) 0.6 10^3/uL (0.0-1.0); MONOCYTES % (AUTO) 7 % (0-12); NEUTROPHILS # (AUTO) 5.3 10^3/uL (1.8-7.8); NEUTROPHILS % (AUTO) 64 % (42-75); PLATELET COUNT 205 10^3/uL (130-400); WHITE BLOOD COUNT 8.2 10^3/uL (4.3-11.0)
[2020-06-20 13:54] LABS: ALBUMIN 4.2 GM/DL (3.2-4.5); CHLORIDE 105 MMOL/L (98-107)
[2020-06-20 13:55] LABS: POTASSIUM 3.8 MMOL/L (3.6-5.0); SODIUM 142 MMOL/L (135-145)
[2020-06-20 13:56] LABS: CALCIUM 9.1 MG/DL (8.5-10.1)
[2020-06-20 13:57] LABS: GLUCOSE 98 MG/DL (70-105); TOTAL PROTEIN 7.3 GM/DL (6.4-8.2)
--- NOTE | 2020-06-20 13:57 | ED Cardiac General ---
History of Present Illness General Chief Complaint: Chest Pain Stated Complaint: CP,SOB Nursing Triage Note: PT AMB TO ROOM 2 PT CO OF C/P APPROX 1 HOUR AGO. DENIES C/P AT THIS X. NO N/V OR DIAPHORISIS History of Present Illness Date Seen by Provider: Jun 20, 2020 Time Seen by Provider: 13:20 Initial Comments 20-year-old female presents for chest pain that she was experiencing over 1 hour ago. She denies any chest pain at this time. She was at work when her symptoms began. No known causative factor. She denies being under any additional stress or having anxiety. She had no associated nausea, vomiting, or diaphoresis. She has been seen in the past for palpitations and has done a Holter monitor, her lead mechanic is Dr. Aguero. She did not take any medication for the chest pain and it resolved. Hx of PCOS and HTN, but is not compliant with her medication when prescribed. Patient reports that she does not like to take medications. Timing/Duration: 1-3 hours Severity: mild Location: substernal Prior CP/Workup: other (Holter monitor) NTG SL TRAFFIC MONITOR SPECIALIST: No ASA po TRAFFIC MONITOR SPECIALIST: No Associated Systoms: Chest Pain (Resolved); No Cough, No Diaphoresis, No Fever/Chills, No Headaches, No Malaise, No Nausea/Vomiting, No Shortness of Air, No Syncope Allergies and Home Medications Allergies Coded Allergies: No Known Drug Allergies (Unverified , 06/20/20) Home Medications Nitrofurantoin Macrocrystal 100 Mg Capsule, 100 MG PO BID Prescribed by: KALEB MOLINA on 06/20/20 8430 Patient Home Medication List Home Medication List Reviewed: Yes Review of Systems Review of Systems Constitutional: no symptoms reported, see HPI Cardiovascular: See HPI, Chest Pain, Palpitations Gastrointestinal: No Symptoms Reported, See HPI All Other Systems Reviewed Negative Unless Noted: Yes Past Xyafuoi-Efengd-Axsfok Hx Past Med/Social Hx: Reviewed Nursing Past Med/Soc Hx, Reviewed and Corrections made Patient Social History Type Used: Cigarettes Former Smoker, Quit: Mar 09, 2015 2nd Hand Smoke Exposure: Yes Recent Infectious Disease Expo: No Recent Hopitalizations: No Immunizations Up To Date Tetanus Booster (TDap): Less than 5yrs PED Vaccines UTD: Yes Seasonal Allergies Seasonal Allergies: No Past Medical History Surgeries: Yes (WISDOM TEETH) Gallbladder Respiratory: No Cardiac: Yes Palpitations Neurological: Yes Headaches /Migraines Last Menstrual Period: May 02, 2020 Reproductive Disorders: Yes (IRREGULAR PERIODS) Female Reproductive Disorders: Menstrual Problems, Ovarian Cyst, Polycystic Ovarian Dis Sexually Transmitted Disease: No HIV/AIDS: No Genitourinary: No UTI (peds) Gastrointestinal: Yes Gastroesophageal Reflux, Ulcer, Gall Bladder Disease Musculoskeletal: No Endocrine: Yes (morbid obesity, PCOS, HYPOGLYCEMIC) HEENT: No Loss of Vision: Denies Hearing Impairment: Denies Cancer: No Psychosocial: Yes (HX DEPRESSION, PANIC ATTACKS-SEVERE ANXIETY) Anxiety, Depression Integumentary: Yes Eczema Blood Disorders: No Adverse Reaction/Blood Tranf: No (N/A) Family Medical History No Pertinent Family Hx Physical Exam Vital Signs Vital Signs - First Documented 06/20/20 13:20 Temp 36.3 Pulse 108 Resp 18 B/P (MAP) 169/87 (114) Pulse Ox 99 O2 Delivery Room Air Capillary Refill : Less Than 3 Seconds Height, Weight, BMI Height: 5'4.00" Weight: 380lbs. oz. 172.521715es; 64.00 BMI Method:Stated General Appearance: No Apparent Distress, WD/WN, Obese HEENT: PERRL/EOMI, TMs Normal, Normal ENT Inspection, Pharynx Normal Neck: Full Range of Motion, Normal Inspection, Non Tender, Supple Respiratory: Chest Non Tender, Lungs Clear, Normal Breath Sounds, No Accessory Muscle Use, No Respiratory Distress Cardiovascular: Regular Rate, Rhythm, No Edema, Tachycardia (100-105) Gastrointestinal: Normal Bowel Sounds, Non Tender, Soft Extremity: Normal Capillary Refill, Normal Inspection, Normal Range of Motion, Non Tender, No Calf Tenderness, No Pedal Edema Neurologic/Psychiatric: Alert, Oriented x3, No Motor/Sensory Deficits, Normal Mood/Affect Skin: Normal Color, Warm/Dry Progress/Results/Core Measures Results/Orders Lab Results Laboratory Tests Test 06/20/20 13:35 06/20/20 14:05 Range/Units White Blood Count 8.2 4.3-11.0 10^3/uL Red Blood Count 5.21 H 3.80-5.11 10^6/uL Hemoglobin 13.8 11.5-16.0 g/dL Hematocrit 44 35-52 % Mean Corpuscular Volume 85 80-99 fL Mean Corpuscular Hemoglobin 27 25-34 pg Mean Corpuscular Hemoglobin Concent 31 L 32-36 g/dL Red Cell Distribution Width 14.2 10.0-14.5 % Platelet Count 205 130-400 10^3/uL Mean Platelet Volume 12.5 H 9.0-12.2 fL Immature Granulocyte % (Auto) 0 % Neutrophils (%) (Auto) 64 42-75 % Lymphocytes (%) (Auto) 27 12-44 % Monocytes (%) (Auto) 7 0-12 % Eosinophils (%) (Auto) 1 0-10 % Basophils (%) (Auto) 0 0-10 % Neutrophils # (Auto) 5.3 1.8-7.8 10^3/uL Lymphocytes # (Auto) 2.2 1.0-4.0 10^3/uL Monocytes # (Auto) 0.6 0.0-1.0 10^3/uL Eosinophils # (Auto) 0.1 0.0-0.3 10^3/uL Basophils # (Auto) 0.0 0.0-0.1 10^3/uL Immature Granulocyte # (Auto) 0.0 0.0-0.1 10^3/uL Prothrombin Time 12.9 12.2-14.7 SEC INR Comment 0.9 0.8-1.4 Activated Partial Thromboplast Time 28 24-35 SEC Sodium Level 142 135-145 MMOL/L Potassium Level 3.8 3.6-5.0 MMOL/L Chloride Level 105 98-107 MMOL/L Carbon Dioxide Level 27 21-32 MMOL/L Anion Gap 10 5-14 MMOL/L Blood Urea Nitrogen 14 7-18 MG/DL Creatinine 0.83 0.60-1.30 MG/DL Estimat Glomerular Filtration Rate > 60 BUN/Creatinine Ratio 17 Glucose Level 98 70-105 MG/DL Calcium Level 9.1 8.5-10.1 MG/DL Corrected Calcium 8.9 8.5-10.1 MG/DL Magnesium Level 2.0 1.6-2.4 MG/DL Total Bilirubin 0.2 0.1-1.0 MG/DL Aspartate Amino Transf (AST/SGOT) 19 5-34 U/L Alanine Aminotransferase (ALT/SGPT) 29 0-55 U/L Alkaline Phosphatase 106 40-136 U/L Myoglobin 34.7 10.0-92.0 NG/ML Troponin I < 0.028 <0.028 NG/ML Total Protein 7.3 6.4-8.2 GM/DL Albumin 4.2 3.2-4.5 GM/DL Urine Color YELLOW Urine Clarity CLEAR Urine pH 6.5 5-9 Urine Specific [place] 1.025 H 1.016-1.022 Urine Protein NEGATIVE NEGATIVE Urine Glucose (UA) NEGATIVE NEGATIVE Urine Ketones NEGATIVE NEGATIVE Urine Nitrite NEGATIVE NEGATIVE Urine Bilirubin NEGATIVE NEGATIVE Urine Urobilinogen 0.2 < = 1.0 MG/DL Urine Leukocyte Esterase 2+ H NEGATIVE Urine RBC (Auto) 3+ H NEGATIVE Urine RBC 0-2 /HPF Urine WBC 2-5 /HPF Urine Squamous Epithelial Cells 10-25 H /HPF Urine Crystals NONE /LPF Urine Bacteria FEW H /HPF Urine Casts NONE /LPF Urine Mucus NEGATIVE /LPF Urine Culture Indicated YES My Orders Orders - KALEB MOLINA Urine Bedside (06/20/20 13:38) Cbc With Automated Diff (06/20/20 13:38) Magnesium (06/20/20 13:38) Chest 1 View, Ap/Pa Only (06/20/20 13:38) Ekg Tracing (06/20/20 13:38) Comprehensive Metabolic Panel (06/20/20 13:38) Myoglobin Serum (06/20/20 13:38) Protime With Inr (06/20/20 13:38) Partial Thromboplastin Time (06/20/20 13:38) Monitor-Rhythm Ecg Trace Only (06/20/20 13:38) Ed Iv/Invasive Line Start (06/20/20 13:38) Troponin I (06/20/20 13:38) Ua Culture If Indicated (06/20/20 13:40) Aspirin Chewable Tablet (Baby Aspirin Ch (06/20/20 14:00) Urine Culture (06/20/20 14:05) Medications Given in ED Current Medications Medications Dose Ordered Sig/[place] Route Start Time Stop Time Status Last Admin Dose Admin Aspirin 324 mg ONCE ONCE PO 06/20/20 14:00 06/20/20 14:01 DC 06/20/20 14:03 324 MG Vital Signs/I&O 06/20/20 06/20/20 06/20/20 13:20 13:20 15:02 Temp 36.3 Pulse 108 99 Resp 18 18 B/P (MAP) 169/87 (114) 169/100 Pulse Ox 99 99 O2 Delivery Room Air Blood Pressure Mean: 114 Progress Progress Note : Time: 13:20 Progress Note Patient seen and evaluated, will obtain EKG, chest x-ray and labs. Aspirin 324 mg orally. No additional medicine since she is asymptomatic at this time. 1400 patient continues to report no chest pain. Her blood pressure has been labile. Heart rate has been 90-100. Discussed UA, she does have recurrent UTIs. She does not drink water regularly, she drinks cranberry juice 1445 B/P 140/90s, recommended medication for B/P patient refuses, does not like to take medications. Discharge instructions and return precautions discussed with the patient and her mother. All questions answered. Initial ECG Impression Date: Jun 20, 2020 Initial ECG Impression Time: 13:31 Initial ECG Rate: 117 Initial ECG Rhythm: S.Tach Initial ECG Intervals: Normal Initial ECG Intervals [place] 151, QRSD 87, QT 311, QTc 434. Adamant P 56, QRS 56, T 18. Initial ECG Impression: Normal Initial ECG Comparisson: Unchanged Diagnostic Imaging Diagonstic Imaging: Xray Plain Films/CT/US/NM/MRI: chest Departure Impression Primary Impression: Atypical chest pain Additional Impression: UTI (urinary tract infection) Qualified Codes: N30.01 - Acute cystitis with hematuria Disposition: HOME, SELF-CARE Condition: Stable Departure-Patient Inst. Decision time for Depature: 14:45 Referrals: [facility] (PCP) Primary Care Physician TASNEEM VINSON APRN (Family) Primary Care Physician Patient Instructions: Chest Pain That Is Not Caused by the Heart (DC), Urinary Tract Infection, Adult (DC) Add. Discharge Instructions: Schedule a follow-up appointment with your primary care provider and with Dr. Abbott. Increase water intake, 16 ounces every 2 hours while awake. Take antibiotics as prescribed. Increase your physical activity, start with walking for 10 to 15 minutes each day. Talk to your primary care provider about resuming your medications that have previously been prescribed. Return to the emergency department for new, urgent healthcare needs. All discharge instructions reviewed with patient and/or family. Voiced understanding. Scripts Nitrofurantoin Macrocrystal (Nitrofurantoin) 100 Mg Capsule 100 MG PO BID, #10 CAP 0 Refills Prov: KALEB MOLINA 06/20/20 Copy Copies To 1: DEVENDRA DIMAS MD FACP FACC CCDS KALEB MOLINA Jun 20, 2020 13:57
[2020-06-20 13:58] LABS: CARBON DIOXIDE 27 MMOL/L (21-32); INR 0.9 (0.8-1.4); PROTHROMBIN TIME PATIENT 12.9 SEC (12.2-14.7)
[2020-06-20 13:59] LABS: BILIRUBIN,TOTAL 0.2 MG/DL (0.1-1.0)
[2020-06-20 14:00] LABS: ALKALINE PHOSPHATASE 106 U/L (40-136); CREATININE SERUM 0.83 MG/DL (0.60-1.30); GFR ESTIMATED > 60
[2020-06-20] MEDS ORDERED: ASPIRIN 81 MG CHEW (CHILDREN'S ASA) PO ONE (14:00)
[2020-06-20 14:01] LABS: BUN/CREATININE RATIO 17
[2020-06-20 14:03] LABS: ALANINE AMINOTRANSFERASE 29 U/L (0-55)
[2020-06-20 14:17] LABS: BILIRUBIN,URINE NEGATIVE (NEGATIVE); CLARITY,URINE CLEAR; COLOR,URINE YELLOW; GLUCOSE, URINE (UA) NEGATIVE (NEGATIVE); KETONES,URINE NEGATIVE (NEGATIVE); LEUKOCYTE ESTERASE ,URINE 2+ (NEGATIVE); NITRITE,URINE NEGATIVE (NEGATIVE); PH,URINE 6.5 (5-9); PROTEIN,URINE NEGATIVE (NEGATIVE)
--- NOTE | 2020-06-20 14:29 | Diagnostic Imaging Report ---
INDICATION: Chest pain. Time of exam 2:20 p.m. Correlation is made with prior chest from 04/22/2020. FINDINGS: The heart size is normal. The pulmonary vascularity is unremarkable. The lungs are clear. No infiltrate, effusion or pneumothorax is detected. IMPRESSION: No acute cardiopulmonary process is detected. Dictated by: Dictated on workstation # [id number]
[2020-06-20 14:32] LABS: BACTERIA,URINE FEW /HPF; RBC,URINE 0-2 /HPF
[2020-06-20] MEDS ORDERED: NITR100C PO (14:55)
[2020-06-20 15:02] VITALS: BP 169/100
== END 2020-06-20 15:01 | disposition home or self-care (01) ==
LOC: EDUNIT# 13:17 → ER 13:19
DX: R07.89 Other chest pain (principal); N39.0 Urinary tract infection, site not specified; I10 Essential (primary) hypertension; E66.01 Morbid (severe) obesity due to excess calories; Z68.44 Body mass index [BMI] 60.0-69.9, adult; Z87.891 Personal history of nicotine dependence
CPT/HCPCS: 36415; 71045; 80053; 81000; 83735; 83874; 84484; 84703; 85025; 85610; 85730; 87088; 93005; 93041

== ENCOUNTER 2020-06-27 18:15 | Emergency (ER) | payer SELFPAY ==
[~2020-06-27] VITALS: Ht 162.6 cm; Wt 167.8 kg
[~2020-06-27 18:15] MED LIST changes: +NITR100C PO
--- NOTE | 2020-06-27 18:34 | ED Cough/URI ---
General Stated Complaint: COUGH / SORE THROAT Source: patient History of Present Illness Date Seen by Provider: Jun 27, 2020 Time Seen by Provider: 18:18 Initial Comments PT ARRIVES VIA POV FROM HOME C/O PRODUCTIVE COUGH AND RUNNY NOSE SINCE 06/18/20--AFTER GOING TO THE [facility] NO CHEST PAIN OR SHORTNESS OF BREATH NO FEVER/SWEATS/CHILLS C/O MILD SORE THROAT--STATES IS FROM COUGHING PT DENIES HISTORY OF RESPIRATORY PROBLEMS HAS NOT TAKEN ANYTHING FOR SYMPTOMS AT ANY TIME SYMPTOMS ARE NO DIFFERENT TODAY IN ANY WAY HAS NOT SOUGHT CARE UNTIL TONIGHT PT STATES SHE TESTED + FOR COVID 04/14/20 NO TREATMENT OR HOSPITALIZATION ONLY SYMPTOM WAS COUGH AND SHORTNESS OF BREATH AT THAT TIME THOSE SYMPTOMS RESOLVED AND HAS BEEN FINE UNTIL LAST WEEK PT DOES NOT SMOKE LMP SOMETIME IN APRIL, CONTROL STATES PERIODS ALWAYS IRREGULAR DUE TO PCOS, BUT DOES NOT TAKE ANY MEDICATION FOR IT. PCP: [facility] Allergies and Home Medications Allergies Coded Allergies: No Known Drug Allergies (Unverified , 06/20/20) Home Medications Doxycycline Hyclate 100 Mg Tablet, 100 MG PO BID Prescribed by: MARTINE BARRAZA on 06/27/201912 Fluticasone Propionate 9.9 Ml [place].susp, 2 SPRAY NS DAILY 2 SPRAYS PER NOSTRIL DAILY X 2 DAYS THEN 1 SPRAY DAILY Prescribed by: MARTINE BARRAZA on 06/27/201912 Guaifenesin/Dextromethorphan 1 Each Tbmp.12hr, 1 EACH PO BID Prescribed by: MARTINE BARRAZA on 06/27/201912 Nitrofurantoin Macrocrystal 100 Mg Capsule, 100 MG PO BID Prescribed by: KALEB MOLINA on 06/20/20 1455 Patient Home Medication List Home Medication List Reviewed: Yes Review of Systems Review of Systems Constitutional: no symptoms reported; No chills, No diaphoresis, No fever EENTM: see HPI, nose congestion, throat pain Respiratory: see HPI, cough; No short of breath Cardiovascular: no symptoms reported; No chest pain Gastrointestinal: no symptoms reported Genitourinary: no symptoms reported : No LMP: Apr 09, 2020 Musculoskeletal: no symptoms reported Skin: no symptoms reported Psychiatric/Neurological: No Symptoms Reported Hematologic/Lymphatic: No Symptoms Reported Immunological/Allergic: no symptoms reported Past Qgdcana-Ccbfdp-Mcvwpa Hx Past Med/Social Hx: Reviewed and Corrections made Patient Social History Alcohol Use: Denies Use Drug of Choice: THC TEEN Smoking Status: Former Smoker Type Used: Cigarettes Former Smoker, Quit: Mar 09, 2015 2nd Hand Smoke Exposure: Yes Recent Hopitalizations: No Immunizations Up To Date Tetanus Booster (TDap): Less than 5yrs PED Vaccines UTD: Yes Seasonal Allergies Seasonal Allergies: No Past Medical History Surgeries: Yes (WISDOM TEETH) Gallbladder Respiratory: No Cardiac: Yes Palpitations Neurological: Yes Headaches /Migraines Reproductive Disorders: Yes (IRREGULAR PERIODS) Female Reproductive Disorders: Menstrual Problems, Ovarian Cyst, Polycystic Ovarian Dis Sexually Transmitted Disease: No HIV/AIDS: No Genitourinary: No UTI (peds) Gastrointestinal: Yes Gastroesophageal Reflux, Ulcer, Gall Bladder Disease Musculoskeletal: No Endocrine: Yes (morbid obesity, PCOS, HYPOGLYCEMIC) HEENT: No Loss of Vision: Denies Hearing Impairment: Denies Cancer: No Psychosocial: Yes (HX DEPRESSION, PANIC ATTACKS-SEVERE ANXIETY) Anxiety, Depression Integumentary: Yes Eczema Blood Disorders: No Adverse Reaction/Blood Tranf: No (N/A) Family Medical History No Pertinent Family Hx TESTED + FOR COVID-19 ON 04/14/20 MILD DISEASE NO TREATMENT OR HOSPITALIZATION Physical Exam Vital Signs - First Documented 06/27/20 18:25 Temp 36.1 Pulse 109 Resp 18 B/P (MAP) 147/113 (124) Pulse Ox 100 O2 Delivery Room Air Capillary Refill : Height: 5'4.00" Weight: 380lbs. oz. 172.502134ps; 64.00 BMI Method:Stated General Appearance: WD/WN, no apparent distress, obese (MORBIDLY OBESE), other (DOES NOT APPEAR ILL OR TO BE IN ANY DISCOMFORT OR DISTRESS, OCCASIONAL DRY COUGH) HEENT: PERRL/EOMI, other (MILD NASAL CONGESTION. NO SINUS TENDERNESS) Neck: normal inspection Respiratory: normal breath sounds, no respiratory distress, no accessory muscle use Cardiovascular: regular rate, rhythm, no murmur Neurologic/Psychiatric: no motor/sensory deficits, alert, normal mood/affect, oriented x 3 Skin: normal color, warm/dry Progress/Results/Core Measures Suspected Sepsis SIRS Temperature: Pulse: Respiratory Rate: Blood Pressure / Mean: Results/Orders My Orders Orders - MARTINE BARRAZA DO Chest Pa/Lat (2 View) (06/27/20 18:27) Urine Bedside (06/27/20 18:27) Vital Signs/I&O 06/27/20 06/27/20 18:25 18:25 Temp 36.1 Pulse 109 Resp 18 B/P (MAP) 147/113 (124) Pulse Ox 100 O2 Delivery Room Air Room Air Capillary Refill : Progress Note : Progress Note REFUSES ANY SWABS OF ANY KIND--REFUSES FLU TESTING Diagnostic Imaging Comments CXR--NO ACUTE PROCESS, PER RADIOLOGIST REPORT AT 1913 Reviewed: Reviewed by Me Departure Impression Primary Impression: Bronchitis Additional Impression: Upper respiratory infection Disposition: HOME, SELF-CARE Condition: Stable Departure-Patient Inst. Referrals: [facility] (PCP/Family) Primary Care Physician Patient Instructions: Acute Bronchitis, Adult (DC), Cough, Runny Nose, and the Common Cold (DC), Upper Respiratory Infection ED Add. Discharge Instructions: LOTS OF CLEAR LIQUIDS TYLENOL AND MOTRIN NEEDED FOR PAIN OR FEVER OVER THE COUNTER CLARITIN OR ZYRTEC FOR RUNNY NOSE FOLLOW UP WITH YOUR DR IN 3-4 DAYS IF NO BETTER Scripts Fluticasone Propionate (Flonase Allergy Relief) 9.9 Ml Gray.susp 2 SPRAY NS DAILY, #1 EACH 2 SPRAYS PER NOSTRIL DAILY X 2 DAYS THEN 1 SPRAY DAILY Prov: MARTINE BARRAZA DO 06/27/20 Guaifenesin/Dextromethorphan (Mucinex Dm ER 1,200-60 mg Tab) 1 Each Tbmp.12hr 1 EACH PO BID, #20 EA Prov: MARTINE BARRAZA DO 06/27/20 Doxycycline Hyclate (Doxycycline Hyclate) 100 Mg Tablet 100 MG PO BID, #20 TAB 0 Refills Prov: MARTINE BARRAZA DO 06/27/20 MARTINE BARRAZA DO Jun 27, 2020 18:33
--- NOTE | 2020-06-27 19:10 | Diagnostic Imaging Report ---
EXAMINATION: Chest 2 view. HISTORY: Cough. COMPARISON: 06/20/2020. FINDINGS: The lung volumes are normal. No focal consolidation is seen. No large pleural effusion or pneumothorax is seen. The cardiomediastinal silhouette is normal in size and contour. No acute osseous abnormality is seen. IMPRESSION: No acute pleuroparenchymal process. Dictated by: Dictated on workstation # [id number]
[2020-06-27] MEDS ORDERED: DOXY100T2 PO (19:13)
[2020-06-27] MEDS ORDERED: GUAI1TBM19 PO (19:13)
[2020-06-27] MEDS ORDERED: FLUT9.9S NS (19:13)
[2020-06-27 19:16] VITALS: BP 147/116
== END 2020-06-27 19:19 | disposition home or self-care (01) ==
LOC: EDUNIT# 18:15 → ER 18:17
DX: J40 Bronchitis, not specified as acute or chronic (principal); J06.9 Acute upper respiratory infection, unspecified; E66.01 Morbid (severe) obesity due to excess calories; Z68.44 Body mass index [BMI] 60.0-69.9, adult; Z87.891 Personal history of nicotine dependence
CPT/HCPCS: 71046; 84703

== ENCOUNTER 2020-08-01 21:06 | Emergency (ER) | payer SELFPAY ==
[~2020-08-01] VITALS: Ht 162.5 cm; Wt 168.2 kg
[~2020-08-01 21:06] MED LIST changes: +DOXY100T2 PO; +FLUT9.9S NS; +GUAI1TBM19 PO
--- NOTE | 2020-08-01 21:56 | ED Headache ---
General Chief Complaint: Head/Cervical Problems Stated Complaint: NECK / HEAD PAIN Nursing Triage Note: c/opain behind right ear. son has been wearing a headset for a new job. verbalizes increased lateral neck pain when wearing headset. 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 She has to wear a headset and she says will never she wears a headset it makes her right side of her head and posterior neck over the mastoid process hurt worse. She moved with a headset down trying to avoid the pain and it only change the position of her pain. She does not like using muscle relaxants because she does not like the way to make her feel. She has been using Tylenol 1000 mg every 8 hours and ibuprofen 800 mg every 8 hours. She has not been using topical creams or heat. She follows with [facility]. She says she is not allowed to use any other kind of microphone on speaker for this job. She went to walk-in care earlier in the week and they looked in her ear and said she did not have any evidence of ear infection or other concerning features. Allergies and Home Medications Allergies Coded Allergies: No Known Drug Allergies (Unverified , 06/20/20) Home Medications Doxycycline Hyclate 100 Mg Tablet, 100 MG PO BID Prescribed by: MARTINE BARRAZA on 06/27/201912 Fluticasone Propionate 9.9 Ml [place].susp, 2 SPRAY NS DAILY 2 SPRAYS PER NOSTRIL DAILY X 2 DAYS THEN 1 SPRAY DAILY Prescribed by: MARTINE BARRAZA on 06/27/201912 Guaifenesin/Dextromethorphan 1 Each Tbmp.12hr, 1 EACH PO BID Prescribed by: MARTINE BARRAZA on 06/27/201912 Nitrofurantoin Macrocrystal 100 Mg Capsule, 100 MG PO BID Prescribed by: KALEB MOLINA on 06/20/20 1705 Patient Home Medication List Home Medication List Reviewed: Yes Review of Systems Review of Systems Constitutional: No chills, No diaphoresis Eyes: Denies Blindness, Denies Blurred Vision Ears, Nose, Mouth, Throat: denies ear pain, denies nose pain Respiratory: No cough, No short of breath Cardiovascular: No edema, No syncope Gastrointestinal: No abdominal pain, No constipation, No diarrhea Genitourinary: No discharge, No dysuria Musculoskeletal: see HPI, neck pain All Other Systems Reviewed Negative Unless Noted: Yes Past Igpbczu-Bzniet-Nrwdnp Hx Patient Social History Alcohol Use: Denies Use Drug of Choice: THC TEEN Smoking Status: Former Smoker Type Used: Cigarettes Former Smoker, Quit: Mar 09, 2015 2nd Hand Smoke Exposure: Yes Recent Infectious Disease Expo: No Recent Hopitalizations: No Immunizations Up To Date Tetanus Booster (TDap): Less than 5yrs PED Vaccines UTD: Yes Seasonal Allergies Seasonal Allergies: No Past Medical History Surgeries: Yes (WISDOM TEETH) Gallbladder Respiratory: No Cardiac: Yes Palpitations Neurological: Yes Headaches /Migraines Reproductive Disorders: Yes (IRREGULAR PERIODS) Female Reproductive Disorders: Menstrual Problems, Ovarian Cyst, Polycystic Ovarian Dis Sexually Transmitted Disease: No HIV/AIDS: No Genitourinary: No UTI (peds) Gastrointestinal: Yes Gastroesophageal Reflux, Ulcer, Gall Bladder Disease Musculoskeletal: No Endocrine: Yes (morbid obesity, PCOS, HYPOGLYCEMIC) HEENT: No Loss of Vision: Denies Hearing Impairment: Denies Cancer: No Psychosocial: Yes (HX DEPRESSION, PANIC ATTACKS-SEVERE ANXIETY) Anxiety, Depression Integumentary: Yes Eczema Blood Disorders: No Adverse Reaction/Blood Tranf: No (N/A) Family Medical History No Pertinent Family Hx TESTED + FOR COVID-19 ON 04/14/20 MILD DISEASE NO TREATMENT OR HOSPITALIZATION Physical Exam Vital Signs Vital Signs - First Documented 08/01/20 21:30 Temp 37.0 Pulse 107 Resp 20 B/P (MAP) 161/125 (137) Pulse Ox 96 Capillary Refill : Less Than 3 Seconds Height, Weight, BMI Height: 5'4.00" Weight: 380lbs. oz. 172.788335dw; 63.00 BMI Method:Stated General Appearance: WD/WN, mild distress HEENT: PERRL/EOMI, normal ENT inspection, TMs normal, pharynx normal, other (Tenderness over the right mastoid and associated muscles, sternocleidomastoid etc.) Neck: No full range of motion (Tenderness on right-sided horizontal rotation); normal inspection; No lymphadenopathy (R), No lymphadenopathy (L); tender lateral (Right side) Cardiovascular: normal peripheral pulses, regular rate, rhythm Respiratory: no respiratory distress, no accessory muscle use Psychiatric: alert, oriented x 3 Crainal Nerves: normal hearing, normal speech, PERRL Coordination/Gait: normal gait Motor/Sensory: no motor deficit, no sensory deficit Skin: normal color, warm/dry Progress/Results/Core Measures Results/Orders Vital Signs/I&O 08/01/20 21:30 Temp 37.0 Pulse 107 Resp 20 B/P (MAP) 161/125 (137) Pulse Ox 96 Blood Pressure Mean: 137 Progress Progress Note : Time: 21:53 Progress Note Well-appearing woman with apparent muscle spasms probably related to the headgear she started wearing when her symptoms started appearing. Plan to put her on some restrictions for the next couple weeks and refer her on to physical therapy. She is adamantly against using muscle relaxant so were going to switch her ibuprofen to naproxen, encouraged topical creams, heat and give her a day of rest tomorrow. Departure Impression Primary Impression: Torticollis, acquired Disposition: 01 HOME, SELF-CARE Condition: Stable Departure-Patient Inst. Decision time for Depature: 21:54 Referrals: [facility] (PCP/Family) Primary Care Physician Patient Instructions: Torticollis (DC) Add. Discharge Instructions: You have an acquired torticollis or spasm of the muscles of your neck likely related to the headgear. I would encourage you to not wear any headgear for the next 2 to 4 weeks. Work with your employer to get a desktop mounted microphone and speaker. You are not to wear anything on your head heavier than an earbud until 09/01/2020. Use topical creams such as icy hot, Biofreeze or creams with capsaicin oil. Heating pads or warm moist heat applied directly to the areas that hurt will help relieve the pain and spasm. Tylenol 1000 mg every 8 hours as necessary for pain. Start using the naproxen 1 tablet 500 mg twice a day on a scheduled basis for the next 2 weeks. Follow-up with your primary care provider if you not seeing improvement over the next 1 to 2 weeks. Call and request a follow-up appointment with physical therapy at [phone]. All discharge instructions reviewed with patient and/or family. Voiced understanding. Scripts Naproxen (Naprosyn) 500 Mg Tablet 500 MG PO BID for 14 Days, #30 TAB 0 Refills Prov: DEBRA CEBALLOS 08/01/20 Work/School Note: Work Release Form Date Seen in the Emergency Department: August 01, 2020 Return to Work: August 03, 2020 Restrictions: Need Release from Doctor Other Restrictions Listed Below: Do not wear anything on your head heavier than an earbud until 09/01/2020. DEBRA CEBALLOS August 01, 2020 21:56
[2020-08-01] MEDS ORDERED: NAPR-1071 PO (21:57)
[2020-08-01 22:03] VITALS: BP 168/97
== END 2020-08-01 22:04 | disposition home or self-care (01) ==
LOC: EDUNIT# 21:06 → ER 21:08
DX: M43.6 Torticollis (principal); E66.01 Morbid (severe) obesity due to excess calories; Z68.44 Body mass index [BMI] 60.0-69.9, adult; Z87.891 Personal history of nicotine dependence; Z77.22 Contact with and (suspected) exposure to environmental tobacco smoke (acute) (chronic)
CPT/HCPCS: 99282

== ENCOUNTER 2021-05-13 05:07 | Emergency (ER) | payer SELFPAY ==
[~2021-05-13] VITALS: Ht 162.6 cm; Wt 161.5 kg
[~2021-05-13 05:07] MED LIST changes: +NAPR-1071 PO
[2021-05-13 05:22] VITALS: BP 167/124
--- NOTE | 2021-05-13 05:35 | ED Cough/URI ---
General Chief Complaint: Cough/Cold/Flu Symptoms Stated Complaint: FEVER 106;FLU A+;CONGESTION Nursing Triage Note: PT AMBULATORY TO ROOM 10. PT STATES SHE TESTED POSITIVE FOR FLU A TWO DAYS AGO AND HAS HAD A FEVER, COUGH, CONGESTION, AND SORE THROAT. PT STATES HER TEMPERATURE AT HOME WAS 106. PT TEMP ON ARRIVAL 99.9 ORALLY Source: patient History of Present Illness Date Seen by Provider: May 13, 2021 Time Seen by Provider: 05:19 Initial Comments PT ARRIVES VIA POV FROM HOME--MALE S.O. HAS CHECKED IN WITH SAME SYMPTOMS PT STATES SHE BEGAN GETTING SICK ON Thursday05/09/21, AND WENT TO TO [facility] ON THURSDAY AND TESTED + FOR INFLUENZA A. PT STATES SHE WAS GIVEN RX FOR TAMIFLU, BUT DID NOT GET IT FILLED PT STATES SHE HAS COUGH AND CONGESTION, NASAL DRAINAGE, SORE THROAT, HAS HAD OCCASIONAL HEADACHE AND BODY ACHES WITH IT. STATES HER TEMPERATURE WAS "106" JUST PRIOR TO ARRIVAL AND RUSHED STRAIGHT HERE--TEMP IS 37.7 C / 98.8 F ON ARRIVAL HERE PT HAS NOT TAKEN ANYTHING FOR ANY OF HER SYMPTOMS AT ANY TIME PT STATES SHE HAD COVID LAST MONTH, NO TREATMENT, AND THOSE SYMPTOMS RESOLVED. DENIES ANY CHRONIC MEDICAL PROBLEMS PCP: [facility] Allergies and Home Medications Allergies Coded Allergies: Penicillins (Verified Allergy, Unknown, 05/13/21) Patient Home Medication List Home Medication List Reviewed: Yes Doxycycline Hyclate (Doxycycline Hyclate) 100 Mg Tablet, 100 MG PO BID Prescribed by: MARTINE BARRAZA on 06/27/201912 Fluticasone Propionate (Flonase Allergy Relief) 9.9 Ml [place].susp, 2 SPRAY NS DAILY Prescribed by: MARTINE BARRAZA on 06/27/201912 Guaifenesin/Dextromethorphan (Mucinex Dm ER 1,200-60 mg Tab) 1 Each Tbmp.12hr, 1 EACH PO BID Prescribed by: MARTINE BARRAZA on 06/27/201912 Naproxen (Naprosyn) 500 Mg Tablet, 500 MG PO BID Prescribed by: DEBRA CEBALLOS on 08/01/202156 Nitrofurantoin Macrocrystal (Nitrofurantoin) 100 Mg Capsule, 100 MG PO BID Prescribed by: KALEB MOLINA on 06/20/20 5026 Review of Systems Review of Systems Constitutional: see HPI, fever EENTM: nose congestion, throat pain Respiratory: cough Cardiovascular: no symptoms reported Gastrointestinal: no symptoms reported Genitourinary: no symptoms reported Musculoskeletal: see HPI (BODY ACHES) Skin: no symptoms reported Psychiatric/Neurological: See HPI, Headache Hematologic/Lymphatic: No Symptoms Reported Immunological/Allergic: no symptoms reported Past Gwaarsa-Raxyyg-Mtpfjn Hx Patient Social History Tobacco Use?: Yes Tobacco type used: Cigarettes Smoking Status: Former Smoker Substance use?: No Alcohol Use?: No Immunizations Up To Date Tetanus Booster (TDap): Less than 5yrs PED Vaccines UTD: Yes Seasonal Allergies Seasonal Allergies: No Past Medical History Surgeries: Yes (WISDOM TEETH) Gallbladder Respiratory: No Cardiac: Yes Palpitations Neurological: Yes Headaches /Migraines Reproductive Disorders: Yes (IRREGULAR PERIODS) Female Reproductive Disorders: Menstrual Problems, Ovarian Cyst, Polycystic Ovarian Dis Sexually Transmitted Disease: No HIV/AIDS: No Genitourinary: No UTI (peds) Gastrointestinal: Yes Gastroesophageal Reflux, Ulcer, Gall Bladder Disease Musculoskeletal: No Endocrine: Yes (MORBID OBESITY, PCOS, HYPOGLYCEMIC) HEENT: No Loss of Vision: Denies Hearing Impairment: Denies Cancer: No Psychosocial: Yes (HX DEPRESSION, PANIC ATTACKS-SEVERE ANXIETY) Anxiety, Depression Integumentary: Yes Eczema Blood Disorders: No Adverse Reaction/Blood Tranf: No (N/A) Family Medical History No Pertinent Family Hx TESTED + FOR COVID-19 ON 04/14/20 MILD DISEASE NO TREATMENT OR HOSPITALIZATION Physical Exam Vital Signs - First Documented 05/13/21 05:22 Temp 37.7 Pulse 128 Resp 17 B/P (MAP) 167/124 (138) Pulse Ox 99 Capillary Refill : Height: 5'4.00" Weight: 380lbs. oz. [id number]; 61.00 BMI Method:Stated General Appearance: WD/WN, no apparent distress, obese (MORBIDLY ), other (DOES NOT APPEAR ILL OR TO BE IN ANY DISCOMFORT OR DISTRESS) HEENT: PERRL/EOMI, TMs normal, pharynx normal, other (MILD NASAL CONGESTION ) Neck: normal inspection Respiratory: normal breath sounds, no respiratory distress, no accessory muscle use Cardiovascular: no murmur, tachycardia Gastrointestinal: non tender, soft Extremities: normal inspection, normal capillary refill Neurologic/Psychiatric: rn research II-XII nml as tested, no motor/sensory deficits, alert, normal mood/affect, oriented x 3 Skin: normal color, warm/dry; No rash Progress/Results/Core Measures Suspected Sepsis SIRS Temperature: Pulse: 128 Respiratory Rate: 17 Blood Pressure 167 /124 Mean: 138 Results/Orders Vital Signs/I&O 05/13/21 05:22 Temp 37.7 Pulse 128 Resp 17 B/P (MAP) 167/124 (138) Pulse Ox 99 Capillary Refill : Blood Pressure Mean: 138 Progress Note : Progress Note PLACED IN ISOLATION ROOM PPE WORN ANTICIPATED COURSE DISCUSSED WITH PATIENT, WELL SYMPTOMATIC TREATMENT DID DISCUSS HER HEART RATE AND BLOOD PRESSURE, AND PT STATES IT IS NORMAL FOR HER "ANY TIME I GO TO THE DR AND I'M NERVOUS" PT ADVISED TO FOLLOW UP WITH [facility] FOR FURTHER EVALUATION OF THIS WHEN SHE NO LONGER IS HAVING SYMPTOMS OF THE FLU Departure Impression Primary Impression: Influenza Disposition: HOME, SELF-CARE Condition: Stable Departure-Patient Inst. Decision time for Depature: 05:30 Referrals: [facility] (PCP/Family) Primary Care Physician Patient Instructions: Flu, Adult (DC), How to Wash Your Hands Properly, Preventing the Spread of an Infectious Disease Add. Discharge Instructions: LOTS OF CLEAR LIQUIDS--WATER, BROTH, JELLO, GATORADE TYLENOL 1 GRAM ( 1000 MG ), PLUS MOTRIN 800 MG 4 TIMES A DAY FOR PAIN OR FEVER OVER THE COUNTER MUCINEX DM FOR COUGH AND CONGESTION FLONASE AND CLARITIN FOR NASAL CONGESTION FOLLOW UP WITH WITH [facility] IN 4-5 DAYS IF NO BETTER All discharge instructions reviewed with patient and/or family. Voiced understanding. MARTINE BARRAZA DO May 13, 2021 05:35
== END 2021-05-13 05:48 | disposition home or self-care (01) ==
LOC: EDUNIT# 05:07 → ER 05:10
DX: J11.1 Influenza due to unidentified influenza virus with other respiratory manifestations (principal); Z87.891 Personal history of nicotine dependence
CPT/HCPCS: 99283

== ENCOUNTER 2021-05-18 23:37 | Emergency (ER) | payer SELFPAY ==
[~2021-05-18] VITALS: Ht 163 cm; Wt 162.0 kg
--- NOTE | 2021-05-19 00:10 | ED EENT ---
History of Present Illness General Chief Complaint: Dental Problems/Pain Stated Complaint: SWOLLEN LUMP ON NECK; TROUBLE SPEAKING Nursing Triage Note: c/o right jaw/neck swollen lymph nodes since approx. 0800 05/17/21. reports recently dx with flu Source: patient Exam Limitations: no limitations (ABHAY WYMAN MED STUDENT) History of Present Illness Date Seen by Provider: May 18, 2021 Time Seen by Provider: 11:58 Initial Comments Mrs. Sanchez is a 21 yo female that present to ED today due to some R side painful neck swelling. She was seen in the ER about 6 days ago for influenza. She states that she has had a persistent dry cough and swollen lymph nodes on the L side. States that the swelling on the L side is better but she developed swelling on the R side today. She states that the pain is bad enough that she cannot speak or stick out her tongue. She also complains that she isnt able to produce saliva due her her salivary glands being inflamed. She has tried ibuprofen and tylenol for pain which has helped a little bit. Movement makes the pain worse. She does not smoke, drink, or do drugs. She has not had anything like this before. (ABHAY WYMAN MED STUDENT) Timing/Duration: gradual, other Severity: moderate Location: mouth, throat (2 to 3 days) Prearrival Treatment: over the counter meds Associated Symptoms: cough; No fever; nasal congestion/drainage, sore throat; No tooth pain; voice change (JOHANA GAN MD) Allergies and Home Medications Allergies Coded Allergies: Penicillins (Verified Allergy, Unknown, 05/13/21) Patient Home Medication List Home Medication List Reviewed: Yes (JOHANA GAN MD) Doxycycline Hyclate (Doxycycline Hyclate) 100 Mg Tablet, 100 MG PO BID Prescribed by: MARTINE BARRAZA on 06/27/201912 Fluticasone Propionate (Flonase Allergy Relief) 9.9 Ml [place].susp, 2 SPRAY NS DAILY Prescribed by: MARTINE BARRAZA on 06/27/201912 Guaifenesin/Dextromethorphan (Mucinex Dm ER 1,200-60 mg Tab) 1 Each Tbmp.12hr, 1 EACH PO BID Prescribed by: MARTINE BARRAZA on 06/27/201912 Naproxen (Naprosyn) 500 Mg Tablet, 500 MG PO BID Prescribed by: DEBRA CEBALLOS on 08/01/20 215 Nitrofurantoin Macrocrystal (Nitrofurantoin) 100 Mg Capsule, 100 MG PO BID Prescribed by: KALEB MOLINA on 06/20/20 1455 Review of Systems Review of Systems Constitutional: No chills, No fever Eyes: Denies Blurred Vision, Denies Vision Changes Mouth: pain (moving tongue), other (dry) Throat: pain, swelling (R side of neck); denies hoarse Respiratory: No cough, No short of breath Cardiovascular: No chest pain, No edema, No palpitations Gastrointestinal: No abdominal pain, No constipation, No diarrhea, No nausea, No vomiting Musculoskeletal: No joint pain, No joint swelling Skin: No lesions, No rash Neurological: Denies Headache, Denies Numbness (ABHAY WYMAN STUDENT) Ears: No Symptoms Reported Nose: congestion; denies pain Mouth: pain (moving tongue), swelling, other (dry) Throat: pain, swelling (R side of neck), hoarse, painful swallowing Respiratory: cough; No short of breath Cardiovascular: No chest pain, No edema; palpitations (JOHANA GAN MD) All Other Systems Reviewed Negative Unless Noted: Yes (JOHANA GAN MD) Past Ulgaytz-Xeqbci-Bdyuvh Hx Patient Social History Tobacco Use?: Yes Tobacco type used: Cigarettes Substance use?: No Alcohol Use?: No Pt feels they are or have been: No (ABHAY WYMAN) Immunizations Up To Date Tetanus Booster (TDap): Less than 5yrs PED Vaccines UTD: Yes (ABHAY WYMAN) Seasonal Allergies Seasonal Allergies: No (ABHAY WYMAN) Past Medical History Surgery/Hospitalization HX: dental, lyssa, palpitations, burden, uti, gerd, anx/dep Surgeries: Yes (WISDOM TEETH) Gallbladder Respiratory: No Cardiac: Yes Palpitations Neurological: Yes Headaches /Migraines Reproductive Disorders: Yes (IRREGULAR PERIODS) Female Reproductive Disorders: Menstrual Problems, Ovarian Cyst, Polycystic Ovarian Dis Sexually Transmitted Disease: No HIV/AIDS: No Genitourinary: No UTI (peds) Gastrointestinal: Yes Gastroesophageal Reflux, Ulcer, Gall Bladder Disease Musculoskeletal: No Endocrine: Yes (MORBID OBESITY, PCOS, HYPOGLYCEMIC) HEENT: No Loss of Vision: Denies Hearing Impairment: Denies Cancer: No Psychosocial: Yes (HX DEPRESSION, PANIC ATTACKS-SEVERE ANXIETY) Anxiety, Depression Integumentary: Yes Eczema Blood Disorders: No Adverse Reaction/Blood Tranf: No (N/A) (ABHAY WYMAN STUDENT) Family Medical History Reviewed Nursing Family Hx (JOHANA GAN MD) No Pertinent Family Hx TESTED + FOR COVID-19 ON 04/14/20 MILD DISEASE NO TREATMENT OR HOSPITALIZATION (ABHAY WYMAN STUDENT) No Pertinent Family Hx (JOHANA GAN MD) Physical Exam Vital Signs Vital Signs - First Documented 05/18/21 23:43 Temp 36.9 Pulse 87 Resp 20 B/P (MAP) 153/89 (110) Pulse Ox 99 O2 Delivery Room Air (JOHANA GAN MD) Height, Weight, BMI Height: 5'4.00" Weight: 380lbs. oz. 172.250965vb; 60.00 BMI Method:Stated General Appearance: mild distress, obese Eyes: bilateral eye PERRL, bilateral eye EOMI Mouth/Throat: normal mouth inspection; No excessive drooling, No pharynx swelling, No tongue swollen; other (moist) Neck: full range of motion, lymphadenopathy (R), tender lateral (R side) Cardiovascular: regular rate, rhythm, no edema, no murmur Respiratory: chest non-tender, lungs clear, normal breath sounds Gastrointestinal: normal bowel sounds, non tender, soft Neurologic/Psychiatric: alert, normal mood/affect, oriented x 3 Skin: normal color, warm/dry (ABHAY WYMAN STUDENT) General Appearance: WD/WN, mild distress Nose: No discharge, No dried blood Mouth/Throat: pharynx swelling; No tongue swollen; tonsillar swelling (Regular), other (moist with erythema none posterior pharynx and bilateral tonsillar swelling with right greater than left. No significant swelling under the tongue or hardened tissue. Tender submandibular with lymph nodes noted right greater than left.) Neck: full range of motion, lymphadenopathy (R) Cardiovascular: regular rate, rhythm, no edema Respiratory: lungs clear, normal breath sounds Gastrointestinal: non tender, soft Neurologic/Psychiatric: alert, oriented x 3 Skin: normal color, warm/dry (JOHANA GAN MD) Progress/Results/Core Measures Results/Orders Lab Results Laboratory Tests Test 3/13/22 00:25 05/19/21 00:45 05/19/21 01:50 Range/Units White Blood Count 10.1 4.3-11.0 10^3/uL Red Blood Count 5.07 3.80-5.11 10^6/uL Hemoglobin 13.7 11.5-16.0 g/dL Hematocrit 43 35-52 % Mean Corpuscular Volume 85 80-99 fL Mean Corpuscular Hemoglobin 27 25-34 pg Mean Corpuscular Hemoglobin Concent 32 32-36 g/dL Red Cell Distribution Width 13.2 10.0-14.5 % Platelet Count 166 130-400 10^3/uL Mean Platelet Volume 12.3 H 9.0-12.2 fL Immature Granulocyte % (Auto) 0 % Neutrophils (%) (Auto) 74 42-75 % Lymphocytes (%) (Auto) 20 12-44 % Monocytes (%) (Auto) 5 0-12 % Eosinophils (%) (Auto) 1 0-10 % Basophils (%) (Auto) 0 0-10 % Neutrophils # (Auto) 7.5 1.8-7.8 10^3/uL Lymphocytes # (Auto) 2.0 1.0-4.0 10^3/uL Monocytes # (Auto) 0.5 0.0-1.0 10^3/uL Eosinophils # (Auto) 0.1 0.0-0.3 10^3/uL Basophils # (Auto) 0.0 0.0-0.1 10^3/uL Immature Granulocyte # (Auto) 0.0 0.0-0.1 10^3/uL Percent Immature Platelet Fraction 9.7 H 0.0-7.6 % Monoscreen NEGATIVE NEGATIVE Group A Streptococcus Screen NEGATIVE NEGATIVE Sodium Level 140 135-145 MMOL/L Potassium Level 3.5 L 3.6-5.0 MMOL/L Chloride Level 103 98-107 MMOL/L Carbon Dioxide Level 23 21-32 MMOL/L Anion Gap 14 5-14 MMOL/L Blood Urea Nitrogen 11 7-18 MG/DL Creatinine 0.75 0.60-1.30 MG/DL Estimat Glomerular Filtration Rate 115 BUN/Creatinine Ratio 15 Glucose Level 150 H 70-105 MG/DL Calcium Level 9.4 8.5-10.1 MG/DL Corrected Calcium 9.4 8.5-10.1 MG/DL Total Bilirubin 0.3 0.1-1.0 MG/DL Aspartate Amino Transf (AST/SGOT) 17 5-34 U/L Alanine Aminotransferase (ALT/SGPT) 38 0-55 U/L Alkaline Phosphatase 85 40-136 U/L C-Reactive Protein High Sensitivity 4.44 H 0.00-0.50 MG/DL Total Protein 7.3 6.4-8.2 GM/DL Albumin 4.0 3.2-4.5 GM/DL Serum Test, Qualitative NEGATIVE NEGATIVE (JOHANA GAN MD) My Orders Orders - JOHANA GAN MD Cbc With Automated Diff (05/19/21 00:05) Comprehensive Metabolic Panel (05/19/21 00:05) Hs C Reactive Protein (05/19/21 00:05) Monotest (05/19/21 00:05) Rapid Strep A Screen (05/19/21 00:05) Ed Iv/Invasive Line Start (05/19/21 00:05) Ct Neck (Soft Tissue) W (05/19/21 01:38) Hcg,Qualitative Serum (05/19/21 01:42) Iohexol Injection (Omnipaque 350 Mg/Ml 1 (05/19/21 03:45) Received Contrast (Hold Metformin- Contr (05/19/21 03:45) Sodium Chloride Flush (Catheter Flush Sy (05/19/21 03:45) Ns (Ivpb) (Sodium Chloride 0.9% Ivpb Bag (05/19/21 03:45) Dexamethasone Injection (Decadron Inje (05/19/21 03:45) Ketorolac Injection (Toradol Injection) (05/19/21 03:46) (JOHANA GAN MD) Medications Given in ED Current Medications Medications Dose Ordered Sig/Braeden Route Start Time Stop Time Status Last Admin Dose Admin Dexamethasone Sodium Phosphate 10 mg ONCE ONCE IV 05/19/21 03:45 05/19/21 03:46 DC 05/19/21 03:57 10 MG Iohexol 100 ml ONCE ONCE IV 05/19/21 03:45 05/19/21 03:46 DC 05/19/21 03:40 75 ML Sodium Chloride 10 ml NEEDED PRN IV 05/19/21 03:45 05/19/21 03:40 10 ML Sodium Chloride 100 ml ONCE ONCE IV 05/19/21 03:45 05/19/21 03:46 DC 05/19/21 03:40 80 ML (JOHANA GAN MD) Vital Signs/I&O 05/18/21 23:43 Temp 36.9 Pulse 87 Resp 20 B/P (MAP) 153/89 (110) Pulse Ox 99 O2 Delivery Room Air (JOHANA GAN MD) Blood Pressure Mean: 110 Progress Progress Note : Time: 00:10 Progress Note Pt likely has a reactive lymph node due to influenza. Consider possible strep or other infections. Will get CBC, CMP, CRP, Monospot and Strep test. (ABHAY WYMAN MED STUDENT) Progress Note : Progress Note I have seen and evaluated the patient and agree with above except as indicated. I have directed the plan of care. Patient is here with increased swelling to the right side of the neck. She had influenza and started having lymphadenopathy on the left but then it moved to the right side. She reports dry mouth and states that she is not making saliva well. Does have dry cough. Reports throat pain pain with swallowing. She has been able to take pain medicine including Tylenol and ibuprofen. Ibuprofen last dose was a few hours prior to arrival and she has not had Tylenol in a while. States pain is worsening as well as swelling on the right. Denies nausea or vomiting. Evaluation as above. We will go ahead and check labs as well as strep test and Monospot with possible CT later depending on evaluation. 0135: Due to increased swelling on the right side with right tonsillar swelling, we will do CT of the neck to rule out abscess. Normal saline 1 L bolus ordered. Monitor patient. 0346: (Time delayed due to daylight saving time clock moving forward) Decadron 10 mg IV and Toradol 30 mg IV ordered and given. 0457: CT reports delayed due to high-volume of radiology required reading per statrad. Report noted. Discussed with the patient. Patient reexamined and I do not feel palpable stone and area of concern but may be in deeper tissue. We did discuss outpatient therapy and follow-up. Also discussed use of lemon drops or similar to increase salivation. Rocephin 1 g IV ordered now and we will continue outpatient cefdinir. Patient has tolerated this in the past. States that she actually feels better currently after Toradol. Discharged home with return precautions. Patient verbalized understanding instructions and agreement with plan. (JOHANA GAN MD) Diagnostic Imaging Diagonstic Imaging: CT Plain Films/CT/US/NM/MRI: other Comments CT soft tissue neck impression: Approximately 3 mm stone is seen within the right posterior mouth. Associated inflammatory stranding of the right submandibular gland is seen. Right greater than left level 1/2 lymphadenopathy likely reactive. Moderate prominence of the pontine tonsils with moderate narrowing of the adjacent oropharyngeal airway. This is most likely reactive to adjacent acute process with differential diagnosis including tonsillitis. Polypoid mucosal thickening of the maxillary and ethmoid sinuses. Mastoid air cells are clear. See full report for details. Reviewed: Reviewed [place] Hawk Study, Reviewed by Me (JOHANA GAN MD) Departure Impression Primary Impression: Salivary duct stone Additional Impression: Tonsillitis Disposition: HOME, SELF-CARE Condition: Improved Departure-Patient Inst. Decision time for Depature: 04:59 (JOHANA GAN MD) Referrals: [facility] (PCP/Family) Primary Care Physician Patient Instructions: Salivary Gland Stones, Sore Throat, Adult ED, Bacterial Upper Respiratory Infection, Adult (DC) Add. Discharge Instructions: All discharge instructions reviewed with patient and/or family. Voiced understanding. Take medications as directed. You can use items to increase salivation such as lemon drops or similar sour items to help move stone from duct. You should call and make appointment with Dr. Montelongo or ear nose and throat surgeon of your choice for recheck and further evaluation. Return for worse pain, fever, swallowing or breathing problems or other concerns as needed. You may additionally take Tylenol/acetaminophen 1000 mg every 6 hours as needed for pain. Drink plenty of fluids. Scripts Naproxen (Naprosyn) 500 Mg Tablet 500 MG PO BID PRN for PAIN-MILD (1-4), #30 TAB 0 Refills Prov: JOHANA GAN MD 05/19/21 Cefdinir (Cefdinir) 300 Mg Capsule 300 MG PO BID, #14 CAP 0 Refills Prov: JOHANA GAN MD 05/19/21 ABHAY WYMAN MED STUDENT May 19, 2021 00:10 JOHANA GAN MD May 19, 2021 01:38
[2021-05-19 00:28] LABS: BASOPHILS % (AUTO) 0 % (0-10); HEMOGLOBIN 13.7 g/dL (11.5-16.0); MEAN PLATELET VOLUME 12.3 fL (9.0-12.2)
[2021-05-19 00:30] LABS: EOSINOPHILS # (AUTO) 0.1 10^3/uL (0.0-0.3); EOSINOPHILS % (AUTO) 1 % (0-10); HEMATOCRIT 43 % (35-52); LYMPHOCYTES % (AUTO) 20 % (12-44); MEAN CORPUSCULAR HEMOGLOBIN 27 pg (25-34); MEAN CORPUSCULAR HGB CONC 32 g/dL (32-36); MEAN CORPUSCULAR VOLUME 85 fL (80-99); MONOCYTES # (AUTO) 0.5 10^3/uL (0.0-1.0); MONOCYTES % (AUTO) 5 % (0-12); NEUTROPHILS # (AUTO) 7.5 10^3/uL (1.8-7.8); NEUTROPHILS % (AUTO) 74 % (42-75); PLATELET COUNT 166 10^3/uL (130-400); WHITE BLOOD COUNT 10.1 10^3/uL (4.3-11.0)
[2021-05-19 01:11] LABS: POTASSIUM 3.5 MMOL/L (3.6-5.0)
[2021-05-19 01:12] LABS: CALCIUM 9.4 MG/DL (8.5-10.1)
[2021-05-19 01:13] LABS: TOTAL PROTEIN 7.3 GM/DL (6.4-8.2)
[2021-05-19 01:15] LABS: BILIRUBIN,TOTAL 0.3 MG/DL (0.1-1.0)
[2021-05-19 01:17] LABS: CREATININE SERUM 0.75 MG/DL (0.60-1.30)
[2021-05-19] MEDS ORDERED: NS 100 ML (IVPB) BAG IV ONE (03:45)
[2021-05-19] MEDS ORDERED: CATHETER FLUSH 10 ML SYR IV PRN (03:45)
[2021-05-19] MEDS ORDERED: IOHEXOL 350 MG/ML 100 ML (OMNIPAQUE 350) VIAL IV ONE (03:45)
[2021-05-19] MEDS ORDERED: HOLD METFORMIN - RECEIVED CONTRAST 20 ML VIAL IV SCH (03:45)
[2021-05-19] MEDS ORDERED: KETOROLAC 30 MG/ML VIAL IVP STA (03:46)
[2021-05-19] MEDS ORDERED: cefTRIAXone 1 GM PRE-MIX 50 ML IV ONE (05:00)
[2021-05-19] MEDS ORDERED: NAPR-1071 PO ×3 (05:02→14:30)
[2021-05-19] MEDS ORDERED: CEFD300C3 PO ×3 (05:02→14:30)
[2021-05-19 05:05] VITALS: BP 120/85
--- NOTE | 2021-05-19 06:55 | Diagnostic Imaging Report ---
EXAMINATION: CT neck with intravenous contrast. TECHNIQUE: Multiple contiguous axial images were obtained through the neck after the uneventful administration of intravenous contrast. All CT scans use one or more of the following dose optimizing techniques: automated exposure control, MA and/or KvP adjustment based on patient size and exam type or iterative reconstruction. HISTORY: Right-sided lymphadenopathy and tonsillar swelling. COMPARISON: None available. FINDINGS: Prominent lymph nodes are seen within the neck which are indeterminate and may be reactive. The muscles of the neck are normal. Vessels of the neck demonstrate normal course and caliber. There is prominence of the bilateral tonsils with narrowing of the airway. The visualized airway is widely patent. The visualized intracranial structures are unremarkable. The cervical spine is unremarkable. The visualized lungs are clear. IMPRESSION: 1. Prominent stranding is seen along the right neck along the submandibular gland. A 3 mm stone is present within the expected location of the distal submandibular duct which could be causing obstruction. Differential consideration could include an infectious process. 2. Prominence of the bilateral tonsils with narrowing of the airway which could also be seen with tonsillitis. 3. Likely reactive lymphadenopathy. 4. I agree with the preliminary interpretation. Dictated by: Dictated on workstation # [id number]
== END 2021-05-19 05:10 | disposition home or self-care (01) ==
LOC: EDUNIT# 23:37 → ER 23:39
DX: K11.5 Sialolithiasis (principal); J03.90 Acute tonsillitis, unspecified; E66.9 Obesity, unspecified; Z68.44 Body mass index [BMI] 60.0-69.9, adult; Z72.0 Tobacco use
CPT/HCPCS: 36415; 70491; 80053; 84703; 85025; 86141; 86308; 87430

== ENCOUNTER 2021-06-04 19:58 | Emergency (ER) | payer SELFPAY ==
[~2021-06-04] VITALS: Ht 162 cm; Wt 162.0 kg
--- NOTE | 2021-06-04 20:24 | ED Abdominal Pain ---
General Chief Complaint: Back Problems Stated Complaint: UPPER BACK PAIN, HEART BURN Source of Information: Patient History of Present Illness Date Seen by Provider: Jun 04, 2021 Time Seen by Provider: 20:15 Initial Comments PT ARRIVES VIA POV FROM HOME C/O UPPER BACK PAIN AND HEART BURN X 3 DAYS ALSO HAVING SOME EPIGASTRIC PAIN WELL NO NAUSEA/VOMITING HAD NORMAL BM THIS AM, NORMALLY IS CONSTIPATED, BUT NOT TODAY NO URINARY SYMPTOMS NO FEVER PT HAS BEEN EATING AND DRINKING NORMALLY ALL DAY ATE FRIED CHICKEN WINGS JUST PRIOR TO ARRIVAL, THEN CAME TO ER TOOK OTC ALKASELTZER CHEWABLE AT 1600 AND 800 MG IBUPROFEN AT 1600 HAS NOT SOUGHT CARE UNTIL TODAY SYMPTOMS NO DIFFERENT TODAY OTHER THAN HEART BURN IS LESS TODAY LMP--UNKNOWN "SOMETIME LAST YEAR" STATES SHE HAS PCOS. NO CONTROL PT HAD CHOLECYSTECTOMY IN 2019 PT HAS NOT HAD COVID OR FLU VACCINES PCP: MAGY--NEVER HAS AN APPOINTMENT OR SEES ANYONE ON REGULAR BASIS, JUST GOES TO WALK IN CLINIC FOR ALL CARE. Allergies and Home Medications Allergies Coded Allergies: Penicillins (Verified Allergy, Unknown, 05/13/21) Patient Home Medication List Home Medication List Reviewed: Yes Cefdinir (Cefdinir) 300 Mg Capsule, 300 MG PO BID Prescribed by: JAEL TOTH on 05/19/21 143 Doxycycline Hyclate (Doxycycline Hyclate) 100 Mg Tablet, 100 MG PO BID Prescribed by: MARTINE BARRAZA on 06/27/201912 Fluticasone Propionate (Flonase Allergy Relief) 9.9 Ml [place].susp, 2 SPRAY NS DAILY Prescribed by: MARTINE BARRAZA on 06/27/201912 Guaifenesin/Dextromethorphan (Mucinex Dm ER 1,200-60 mg Tab) 1 Each Tbmp.12hr, 1 EACH PO BID Prescribed by: MARTINE BARRAZA on 06/27/201912 Naproxen (Naprosyn) 500 Mg Tablet, 500 MG PO BID PRN for PAIN-MILD (1-4) Prescribed by: JOHANA GAN on 05/19/21 0502 Naproxen (Naprosyn) 500 Mg Tablet, 500 MG PO BID Prescribed by: JAEL TOTH on 05/19/21 143 Nitrofurantoin Macrocrystal (Nitrofurantoin) 100 Mg Capsule, 100 MG PO BID Prescribed by: KALEB MOLINA on 06/20/20 1455 Ondansetron (Ondansetron Odt) 4 Mg Tab.rapdis, 4 MG PO Q4H Prescribed by: MARTINE BARRAZA on 06/04/212157 Pantoprazole Sodium (Protonix) 40 Mg Tablet.dr, 40 MG PO DAILY Prescribed by: MARTINE BARRAZA on 06/04/212157 Sucralfate (Carafate) 1 Gm Tablet, 1 GM PO QID Prescribed by: MARTINE BARRAZA on 06/04/212157 Review of Systems Review of Systems Constitutional: no symptoms reported Respiratory: No Symptoms Reported Cardiovascular: No Symptoms Reported; Denies Lightheadedness Gastrointestinal: See HPI, Abdominal Pain; Denies Constipated, Denies Diarrhea, Denies Nausea, Denies Vomiting Genitourinary: No Symptoms Reported Musculoskeletal: see HPI, back pain Skin: no symptoms reported Psychiatric/Neurological: No Symptoms Reported Endocrine: No Symptoms Reported Past Gdzrzoa-Gvweho-Kufdcl Hx Patient Social History Tobacco Use?: No Use of E-Cig and/or Vaping dev: No Substance use?: No Alcohol Use?: No Pt feels they are or have been: No Immunizations Up To Date Tetanus Booster (TDap): Less than 5yrs PED Vaccines UTD: Yes Seasonal Allergies Seasonal Allergies: No Past Medical History Surgery/Hospitalization HX: dental, terese, palpitations, burden, uti, gerd, anx/dep Surgeries: Yes (WISDOM TEETH; TERESE 2019) Gallbladder Respiratory: No Cardiac: Yes Palpitations Neurological: Yes Headaches /Migraines Reproductive Disorders: Yes (IRREGULAR PERIODS) Female Reproductive Disorders: Menstrual Problems, Ovarian Cyst, Polycystic Ovarian Dis Sexually Transmitted Disease: No HIV/AIDS: No Genitourinary: No UTI (peds) Gastrointestinal: Yes Gastroesophageal Reflux, Ulcer, Gall Bladder Disease Musculoskeletal: No Endocrine: Yes (MORBID OBESITY, PCOS, HYPOGLYCEMIC) HEENT: Yes (SALIVARY DUCT STONE 05/2021) Loss of Vision: Denies Hearing Impairment: Denies Cancer: No Psychosocial: Yes (HX DEPRESSION, PANIC ATTACKS-SEVERE ANXIETY) Anxiety, Depression Integumentary: Yes Eczema Blood Disorders: No Adverse Reaction/Blood Tranf: No (N/A) Family Medical History No Pertinent Family Hx TESTED + FOR COVID-19 ON 04/14/20 MILD DISEASE NO TREATMENT OR HOSPITALIZATION Physical Exam Vital Signs Vital Signs - First Documented 06/04/21 20:15 Temp 35.8 Pulse 117 Resp 18 B/P (MAP) 149/115 (126) Capillary Refill : Height/Weight/BMI Height: 5'4.00" Weight: 380lbs. oz. 172.124124mv; 60.00 BMI Method:Stated General Appearance: WD/WN, no apparent distress, obese (MORBIDLY OBESE), other (WALKS UPRIGHT AND MOVES WITHOUT DIFFICULTY. SITTING -STYLE. DOES NOT APPEAR ILL OR TO BE IN ANY DISCOMFORT OR DISTRESS) HEENT: No scleral icterus (R), No scleral icterus (L), No pale conjunctivae (R), No pale conjunctivae (L) Respiratory: chest non-tender, normal breath sounds, no respiratory distress, no accessory muscle use Cardiovascular: regular rate, rhythm, no murmur Gastrointestinal: normal bowel sounds, non tender, soft Back: normal inspection, no CVA tenderness, no vertebral tenderness Neurologic/Psychiatric: wellness director II-XII nml as tested, no motor/sensory deficits, alert, normal mood/affect, oriented x 3 Skin: normal color, warm/dry; No rash; tattoos/piercings Progress/Results/Core Measures Results/Orders Lab Results Laboratory Tests Test 06/04/21 20:25 06/04/21 21:00 Range/Units Urine Color YELLOW Urine Clarity SL CLOUDY Urine pH 6.0 5-9 Urine Specific [place] 1.025 H 1.016-1.022 Urine Protein NEGATIVE NEGATIVE Urine Glucose (UA) NEGATIVE NEGATIVE Urine Ketones NEGATIVE NEGATIVE Urine Nitrite NEGATIVE NEGATIVE Urine Bilirubin NEGATIVE NEGATIVE Urine Urobilinogen 0.2 < = 1.0 MG/DL Urine Leukocyte Esterase 1+ H NEGATIVE Urine RBC (Auto) 3+ H NEGATIVE Urine RBC 2-5 H /HPF Urine WBC 2-5 /HPF Urine Squamous Epithelial Cells 5-10 /HPF Urine Crystals PRESENT H /LPF Urine Amorphous Sediment MOD KLARISSA URATES H /LPF Urine Bacteria TRACE /HPF Urine Casts NONE /LPF Urine Mucus NEGATIVE /LPF Urine Culture Indicated NO Urine Opiates Screen NEGATIVE NEGATIVE Urine Oxycodone Screen NEGATIVE NEGATIVE Urine Methadone Screen NEGATIVE NEGATIVE Urine Propoxyphene Screen NEGATIVE NEGATIVE Urine Barbiturates Screen NEGATIVE NEGATIVE Ur Tricyclic Antidepressants Screen NEGATIVE NEGATIVE Urine Phencyclidine Screen NEGATIVE NEGATIVE Urine Amphetamines Screen NEGATIVE NEGATIVE Urine Methamphetamines Screen NEGATIVE NEGATIVE Urine Benzodiazepines Screen NEGATIVE NEGATIVE Urine Cocaine Screen NEGATIVE NEGATIVE Urine Cannabinoids Screen NEGATIVE NEGATIVE White Blood Count 9.3 4.3-11.0 10^3/uL Red Blood Count 4.64 3.80-5.11 10^6/uL Hemoglobin 12.7 11.5-16.0 g/dL Hematocrit 40 35-52 % Mean Corpuscular Volume 86 80-99 fL Mean Corpuscular Hemoglobin 27 25-34 pg Mean Corpuscular Hemoglobin Concent 32 32-36 g/dL Red Cell Distribution Width 14.3 10.0-14.5 % Platelet Count 215 130-400 10^3/uL Mean Platelet Volume 12.7 H 9.0-12.2 fL Immature Granulocyte % (Auto) 0 % Neutrophils (%) (Auto) 63 42-75 % Lymphocytes (%) (Auto) 29 12-44 % Monocytes (%) (Auto) 7 0-12 % Eosinophils (%) (Auto) 1 0-10 % Basophils (%) (Auto) 0 0-10 % Neutrophils # (Auto) 5.8 1.8-7.8 10^3/uL Lymphocytes # (Auto) 2.7 1.0-4.0 10^3/uL Monocytes # (Auto) 0.6 0.0-1.0 10^3/uL Eosinophils # (Auto) 0.1 0.0-0.3 10^3/uL Basophils # (Auto) 0.0 0.0-0.1 10^3/uL Immature Granulocyte # (Auto) 0.0 0.0-0.1 10^3/uL Sodium Level 143 135-145 MMOL/L Potassium Level 3.9 3.6-5.0 MMOL/L Chloride Level 106 98-107 MMOL/L Carbon Dioxide Level 23 21-32 MMOL/L Anion Gap 14 5-14 MMOL/L Blood Urea Nitrogen 17 7-18 MG/DL Creatinine 0.87 0.60-1.30 MG/DL Estimat Glomerular Filtration Rate 97 BUN/Creatinine Ratio 20 Glucose Level 131 H 70-105 MG/DL Calcium Level 8.7 8.5-10.1 MG/DL Corrected Calcium 8.9 8.5-10.1 MG/DL Total Bilirubin 0.2 0.1-1.0 MG/DL Aspartate Amino Transf (AST/SGOT) 14 5-34 U/L Alanine Aminotransferase (ALT/SGPT) 28 0-55 U/L Alkaline Phosphatase 97 40-136 U/L Total Protein 6.7 6.4-8.2 GM/DL Albumin 3.7 3.2-4.5 GM/DL Amylase Level 31 25-125 U/L Lipase 25 8-78 U/L My Orders Orders - MARTINE BARRAZA DO Urine Bedside (06/04/21 20:15) Drug Screen Stat (Urine) (06/04/21 20:15) Ua Culture If Indicated (06/04/21 20:15) Ed Iv/Invasive Line Start (06/04/21 20:22) Amylase (06/04/21 20:22) Cbc With Automated Diff (06/04/21 20:22) Comprehensive Metabolic Panel (06/04/21 20:22) Lipase (06/04/21 20:22) Pantoprazole Injection (Protonix Injecti (06/04/21 20:30) Ct Abd/Pelvis Wo(Kidney Stone) (06/04/21 21:05) Acute Abd Series (06/04/21 21:05) Medications Given in ED Current Medications Medications Dose Ordered Sig/[place] Route Start Time Stop Time Status Last Admin Dose Admin Pantoprazole 40 mg ONCE ONCE IV 06/04/21 20:30 06/04/21 20:31 DC 06/04/21 20:55 40 MG Vital Signs/I&O 06/04/21 06/04/21 20:15 22:09 Temp 35.8 35.8 Pulse 117 110 Resp 18 18 B/P (MAP) 149/115 (126) 140/100 Progress Progress Note : Progress Note UNEVENTFUL ER STAY Diagnostic Imaging Comments CT ABDOMEN/PELVIS--PER RADIOLOGIST REPORT [id number] FINDINGS: The heart is unremarkable. The lung bases are clear. The liver, spleen, pancreas, adrenal glands, and kidneys have a normal appearance. The gallbladder surgically absent. There is no pathologically enlarged mesenteric or retroperitoneal adenopathy. The bowel loops are nondilated. The appendix is visualized in the right lower quadrant and has a normal appearance. There is no free fluid or free air. No acute osseous abnormalities. Tiny fat-containing periumbilical hernia is seen. Ureters and bladder are normal. There is no free air, loculated collection, or adenopathy in the pelvis. IMPRESSION: 1. No acute abnormalities in the abdomen and pelvis. No bowel obstruction, free fluid, or free air. Normal appendix. 2. No acute osseous abnormalities in the lumbar spine. 3. Tiny fat-containing periumbilical hernia. Reviewed: Reviewed by Me Departure Impression Primary Impression: Upper back pain Additional Impression: GERD SYMPTOMS Disposition: 01 HOME, SELF-CARE Condition: Stable Departure-Patient Inst. Decision time for Depature: 21:56 Referrals: [facility] (PCP/Family) Primary Care Physician Patient Instructions: Acid Reflux and GERD in Adults (DC), Upper Back Pain (DC) Add. Discharge Instructions: CLEAR LIQUIDS--WATER, BROTH, JELLO, GATORADE BRATS DIET--BANANAS, RICE, APPLESAUCE, TOAST, SALTINES TYLENOL NEEDED FOR PAIN FOLLOW UP WITH [facility] THIS WEEK FOR FURTHER CARE All discharge instructions reviewed with patient and/or family. Voiced understanding. Scripts Ondansetron (Ondansetron Odt) 4 Mg Tab.rapdis 4 MG PO Q4H for Nausea/Vomiting, #10 TAB Prov: MARTINE BARRAZA DO 06/04/21 Sucralfate (Carafate) 1 Gm Tablet 1 GM PO QID, #60 TAB Prov: MARTINE BARRAZA DO 06/04/21 Pantoprazole Sodium (Protonix) 40 Mg Tablet.dr 40 MG PO DAILY, #15 TAB Prov: MARTINE BARRAZA DO 06/04/21 MARTINE BARRAZA DO Jun 04, 2021 20:24
[2021-06-04] MEDS ORDERED: PANTOPRAZOLE 40 MG (PROTONIX) VIAL IV ONE (20:30)
[2021-06-04 20:44] LABS: BILIRUBIN,URINE NEGATIVE (NEGATIVE); CLARITY,URINE SL CLOUDY; COLOR,URINE YELLOW; GLUCOSE, URINE (UA) NEGATIVE (NEGATIVE); KETONES,URINE NEGATIVE (NEGATIVE); LEUKOCYTE ESTERASE ,URINE 1+ (NEGATIVE); NITRITE,URINE NEGATIVE (NEGATIVE); PROTEIN,URINE NEGATIVE (NEGATIVE)
[2021-06-04 21:02] LABS: AMPHETAMINE SCREEN, URINE NEGATIVE (NEGATIVE); BACTERIA,URINE TRACE /HPF; BARBITURATE SCREEN URINE NEGATIVE (NEGATIVE); BENZODIAZEPINES SCREEN URINE NEGATIVE (NEGATIVE); CANNABINOID SCREEN, URINE NEGATIVE (NEGATIVE); COCAINE SCREEN URINE NEGATIVE (NEGATIVE); METHADONE STAT NEGATIVE (NEGATIVE); METHAMPHETAMINE SCREEN URINE S NEGATIVE (NEGATIVE); OPIATE SCREEN URINE NEGATIVE (NEGATIVE); OXYCODONE STAT NEGATIVE (NEGATIVE); PROPOXYPHENE STAT NEGATIVE (NEGATIVE); TRICYCLIC ANTIDEPRESSANTS SCRE NEGATIVE (NEGATIVE)
[2021-06-04 21:03] LABS: AMORPHOUS SEDIMENT,UR MOD AMOR URATES /LPF
[2021-06-04 21:06] LABS: BASOPHILS % (AUTO) 0 % (0-10); EOSINOPHILS # (AUTO) 0.1 10^3/uL (0.0-0.3); EOSINOPHILS % (AUTO) 1 % (0-10); HEMATOCRIT 40 % (35-52); HEMOGLOBIN 12.7 g/dL (11.5-16.0); LYMPHOCYTES # (AUTO) 2.7 10^3/uL (1.0-4.0); LYMPHOCYTES % (AUTO) 29 % (12-44); MEAN CORPUSCULAR HEMOGLOBIN 27 pg (25-34); MEAN CORPUSCULAR HGB CONC 32 g/dL (32-36); MEAN CORPUSCULAR VOLUME 86 fL (80-99); MEAN PLATELET VOLUME 12.7 fL (9.0-12.2); MONOCYTES # (AUTO) 0.6 10^3/uL (0.0-1.0); MONOCYTES % (AUTO) 7 % (0-12); NEUTROPHILS # (AUTO) 5.8 10^3/uL (1.8-7.8); NEUTROPHILS % (AUTO) 63 % (42-75); PLATELET COUNT 215 10^3/uL (130-400); WHITE BLOOD COUNT 9.3 10^3/uL (4.3-11.0)
[2021-06-04 21:27] LABS: ALBUMIN 3.7 GM/DL (3.2-4.5); POTASSIUM 3.9 MMOL/L (3.6-5.0)
[2021-06-04 21:28] LABS: CALCIUM 8.7 MG/DL (8.5-10.1)
[2021-06-04 21:29] LABS: TOTAL PROTEIN 6.7 GM/DL (6.4-8.2)
[2021-06-04 21:31] LABS: BILIRUBIN,TOTAL 0.2 MG/DL (0.1-1.0)
[2021-06-04 21:33] LABS: CREATININE SERUM 0.87 MG/DL (0.60-1.30)
--- NOTE | 2021-06-04 21:52 | Diagnostic Imaging Report ---
PROCEDURE: CT urinary tract, rule out kidney stone. TECHNIQUE: Multiple contiguous axial images were obtained through the abdomen and pelvis without the use of intravenous contrast. Auto Exposure Controls were utilized during the CT exam to meet ALARA standards for radiation dose reduction. INDICATION: Back pain. Abdominal pain. COMPARISON: None. FINDINGS: The heart is unremarkable. The lung bases are clear. The liver, spleen, pancreas, adrenal glands, and kidneys have a normal appearance. The gallbladder surgically absent. There is no pathologically enlarged mesenteric or retroperitoneal adenopathy. The bowel loops are nondilated. The appendix is visualized in the right lower quadrant and has a normal appearance. There is no free fluid or free air. No acute osseous abnormalities. Tiny fat-containing periumbilical hernia is seen. Ureters and bladder are normal. There is no free air, loculated collection, or adenopathy in the pelvis. IMPRESSION: 1. No acute abnormalities in the abdomen and pelvis. No bowel obstruction, free fluid, or free air. Normal appendix. 2. No acute osseous abnormalities in the lumbar spine. 3. Tiny fat-containing periumbilical hernia. Dictated by: Dictated on workstation # [id number]
--- NOTE | 2021-06-04 21:54 | Diagnostic Imaging Report ---
Patient History: Chest and abdominal pain.. Technique: 4 views of the chest, abdomen and pelvis were obtained. Comparison: CT abdomen and pelvis performed earlier the same date. Chest radiograph on 06/27/2020. FINDINGS: The lung volumes are normal. No focal consolidation is seen. No large pleural effusion or pneumothorax is seen. The cardiomediastinal silhouette is normal in size and contour. No acute osseous abnormality is seen. No evidence of bowel obstruction. No large collections of free intraperitoneal air. No significant stool burden is seen. No abnormal calcifications in the abdomen and pelvis. IMPRESSION: 1. No acute process in the chest. 2. No evidence of small bowel obstruction. Dictated by: Dictated on workstation # [id number]
[2021-06-04] MEDS ORDERED: SUCR1TAB36 PO (21:58)
[2021-06-04] MEDS ORDERED: PANT40TA2 PO (21:58)
[2021-06-04] MEDS ORDERED: ONDA4TAB11 PO (21:58)
[2021-06-04 22:09] VITALS: BP 140/100
== END 2021-06-04 22:10 | disposition home or self-care (01) ==
LOC: EDUNIT# 19:58 → ER 20:01
DX: M54.6 Pain in thoracic spine (principal); E66.01 Morbid (severe) obesity due to excess calories; Z68.44 Body mass index [BMI] 60.0-69.9, adult; Z90.49 Acquired absence of other specified parts of digestive tract
CPT/HCPCS: 36415; 74022; 74176; 80053; 80306; 81000; 82150; 83690; 84703; 85025

== ENCOUNTER 2022-05-04 22:52 | Emergency (ER) | payer SELFPAY ==
[~2022-05-04] VITALS: Ht 170 cm; Wt 167.4 kg
[~2022-05-04 22:52] MED LIST changes: +ALBU8.5H6 IH; +PANT40TA2 PO; -RT-ALBUINH IH; +SUCR1TAB36 PO
[2022-05-04] MEDS ORDERED: ONDANSETRON 4 MG/2 ML (SDV) Z0FRAN IVP ONE (23:45)
[2022-05-04] MEDS ORDERED: LIDOCAINE 2% VISCOUS 15 ML UDC PO ONE (23:45)
[2022-05-04] MEDS ORDERED: ANTACID SUSP 30 ML UDC (MYLANTA) PO ONE (23:45)
[2022-05-04 23:49] LABS: BASOPHILS % (AUTO) 1 % (0-10); EOSINOPHILS # (AUTO) 0.2 10^3/uL (0.0-0.3); EOSINOPHILS % (AUTO) 2 % (0-10); HEMATOCRIT 40 % (35-52); HEMOGLOBIN 12.9 g/dL (11.5-16.0); LYMPHOCYTES # (AUTO) 2.8 10^3/uL (1.0-4.0); LYMPHOCYTES % (AUTO) 32 % (12-44); MEAN CORPUSCULAR HEMOGLOBIN 28 pg (25-34); MEAN CORPUSCULAR HGB CONC 32 g/dL (32-36); MEAN CORPUSCULAR VOLUME 87 fL (80-99); MONOCYTES # (AUTO) 0.6 10^3/uL (0.0-1.0); MONOCYTES % (AUTO) 6 % (0-12); NEUTROPHILS # (AUTO) 5.2 10^3/uL (1.8-7.8); NEUTROPHILS % (AUTO) 59 % (42-75); PLATELET COUNT 217 10^3/uL (130-400); WHITE BLOOD COUNT 8.8 10^3/uL (4.3-11.0)
[2022-05-04 23:53] LABS: ALBUMIN 3.9 GM/DL (3.2-4.5); POTASSIUM 3.5 MMOL/L (3.6-5.0)
[2022-05-04 23:54] LABS: INR 0.9 (0.8-1.4); PROTHROMBIN TIME PATIENT 12.9 SEC (12.2-14.7)
[2022-05-04 23:55] LABS: CALCIUM 8.9 MG/DL (8.5-10.1)
[2022-05-04 23:56] LABS: TOTAL PROTEIN 7.2 GM/DL (6.4-8.2)
[2022-05-04 23:58] LABS: BILIRUBIN,TOTAL 0.3 MG/DL (0.1-1.0)
[2022-05-04 23:59] LABS: CREATININE SERUM 0.84 MG/DL (0.60-1.30)
[2022-05-05 00:03] LABS: MAGNESIUM 1.9 MG/DL (1.6-2.4)
--- NOTE | 2022-05-05 00:04 | ED Chest Pain ---
General Chief Complaint: Chest Pain Stated Complaint: LEFT SHOULDER/CHEST PAIN Nursing Triage Note: PATIENT REPORTS LEFT CHEST PAIN RADIATING POSTERIOR, STATES LAST THREE DAYS. DENIES N/V. SHORTNESS OF BREATH WITH CHEST PAIN. PATIENT STATES PAIN WORSENES WITH DEEP BREATHS. PATIENT ALSO COMPLAINT OF HEARTBURN Source: patient Exam Limitations: no limitations History of Present Illness Date Seen by Provider: May 04, 2022 Time Seen by Provider: 23:30 Initial Comments This 22-year-old young lady presents to the emergency room with complaints of pain in the left upper chest and left upper back for the past 3 days. Pain is notably positional and worsens with movement or deep breathing. Patient has tried taking ibuprofen 800 mg, capsaicin cream, topical lidocaine, and IcyHot. None of these treatments have resolved her pain. She denies any prior episodes. She denies any cough or fever. She has of vomiting most mornings which is a chronic condition for her and unchanged. In addition to the chest pain, she is complaining of intense heartburn today as well. Saritha Pablo at [facility] is her primary care provider. Allergies and Home Medications Allergies Coded Allergies: Penicillins (Verified Allergy, Unknown, 05/13/21) Patient Home Medication List Home Medication List Reviewed: Yes Cefdinir (Cefdinir) 300 Mg Capsule, 300 MG PO BID Prescribed by: JAEL TOTH on 05/19/21 143 Doxycycline Hyclate (Doxycycline Hyclate) 100 Mg Tablet, 100 MG PO BID Prescribed by: MARTINE BARRAZA on 06/27/201912 Fluticasone Propionate (Flonase Allergy Relief) 9.9 Ml [place].susp, 2 SPRAY NS DAILY Prescribed by: MARTINE BARRAZA on 06/27/201912 Guaifenesin/Dextromethorphan (Mucinex Dm ER 1,200-60 mg Tab) 1 Each Tbmp.12hr, 1 EACH PO BID Prescribed by: MARTINE BARRAZA on 06/27/201912 Naproxen (Naprosyn) 500 Mg Tablet, 500 MG PO BID PRN for PAIN-MILD (1-4) Prescribed by: JOHANA GAN on 05/19/21 0502 Naproxen (Naprosyn) 500 Mg Tablet, 500 MG PO BID Prescribed by: JAEL TOTH on 05/19/21 143 Nitrofurantoin Macrocrystal (Nitrofurantoin) 100 Mg Capsule, 100 MG PO BID Prescribed by: KALEB MOLINA on 06/20/20 1455 Omeprazole (Omeprazole) 20 Mg Tablet.dr, 20 MG PO BID Prescribed by: ROLANDO ZHANG on 05/05/22134 Ondansetron (Ondansetron Odt) 4 Mg Tab.rapdis, 4 MG PO Q4H Prescribed by: MARTINE BARRAZA on 06/04/212157 Ondansetron (Ondansetron Odt) 4 Mg Tab.rapdis, 4 MG SL Q4H PRN for NAUSEA/VOMITING Prescribed by: ROLANDO ZHANG on 05/05/22134 Pantoprazole Sodium (Protonix) 40 Mg Tablet.dr, 40 MG PO DAILY Prescribed by: MARTINE BARRAZA on 06/04/212157 Sucralfate (Carafate) 1 Gm Tablet, 1 GM PO QID Prescribed by: MARTINE BARRAZA on 06/04/212157 Review of Systems Review of Systems Constitutional: no symptoms reported EENTM: No Symptoms Reported Respiratory: See HPI Cardiovascular: No Symptoms Reported Gastrointestinal: See HPI Genitourinary: No Symptoms Reported Musculoskeletal: no symptoms reported Skin: no symptoms reported Psychiatric/Neurological: No Symptoms Reported Endocrine: No Symptoms Reported Hematologic/Lymphatic: No Symptoms Reported Past Kykmphv-Krdwts-Keemfc Hx Patient Social History Tobacco Use?: No Use of E-Cig and/or Vaping dev: No Substance use?: No Alcohol Use?: No Pt feels they are or have been: No Immunizations Up To Date Tetanus Booster (TDap): Less than 5yrs PED Vaccines UTD: Yes Seasonal Allergies Seasonal Allergies: No Past Medical History Surgery/Hospitalization HX: dental, terese, palpitations, burden, uti, gerd, anx/dep, PCOS Surgeries: Yes (WISDOM TEETH; TERESE 2020) Gallbladder Respiratory: No Cardiac: Yes Palpitations Neurological: Yes Headaches /Migraines : No Reproductive Disorders: Yes (IRREGULAR PERIODS) Female Reproductive Disorders: Menstrual Problems, Ovarian Cyst, Polycystic Ova ming Dis Sexually Transmitted Disease: No HIV/AIDS: No Genitourinary: No UTI (peds) Gastrointestinal: Yes (Frequent vomiting) Gastroesophageal Reflux, Hiatal Hernia, Ulcer, Gall Bladder Disease Musculoskeletal: No Endocrine: Yes (MORBID OBESITY, PCOS, HYPOGLYCEMIC) HEENT: Yes (SALIVARY DUCT STONE 05/2021) Loss of Vision: Denies Hearing Impairment: Denies Cancer: No Psychosocial: Yes (HX DEPRESSION, PANIC ATTACKS-SEVERE ANXIETY) Anxiety, Depression Integumentary: Yes Eczema Blood Disorders: No Adverse Reaction/Blood Tranf: No (N/A) Family Medical History No Pertinent Family Hx TESTED + FOR COVID-19 ON 04/14/20 MILD DISEASE NO TREATMENT OR HOSPITALIZATION Physical Exam Vital Signs Vital Signs - First Documented 05/04/22 23:03 Temp 36.3 Pulse 86 Resp 20 B/P (MAP) 133/71 (91) Pulse Ox 97 O2 Delivery Room Air Capillary Refill : Less Than 3 Seconds Height, Weight, BMI Height: 5'4.00" Weight: 380lbs. oz. [id number]; 57.00 BMI Method:Stated General Appearance: No Apparent Distress, WD/WN, Obese HEENT: Normal ENT Inspection Neck: Normal Inspection Respiratory: Chest Non Tender, Lungs Clear, Normal Breath Sounds, No Accessory Muscle Use Cardiovascular: Regular Rate, Rhythm, No Edema, No Murmur Gastrointestinal: Non Tender, Soft Extremity: Normal Inspection, No Calf Tenderness, No Pedal Edema, Other (Bruise on the left lower medial leg that is tender to palpation, calf otherwise normal and nontender) Neurologic/Psychiatric: Alert, Oriented x3, No Motor/Sensory Deficits, Normal Mood/Affect Skin: Normal Color, Warm/Dry, Ecchymosis Progress/Results/Core Measures Results/Orders Lab Results Laboratory Tests Test 05/04/22 23:10 Range/Units White Blood Count 8.8 4.3-11.0 10^3/uL Red Blood Count 4.62 3.80-5.11 10^6/uL Hemoglobin 12.9 11.5-16.0 g/dL Hematocrit 40 35-52 % Mean Corpuscular Volume 87 80-99 fL Mean Corpuscular Hemoglobin 28 25-34 pg Mean Corpuscular Hemoglobin Concent 32 32-36 g/dL Red Cell Distribution Width 13.2 10.0-14.5 % Platelet Count 217 130-400 10^3/uL Mean Platelet Volume 13.0 H 9.0-12.2 fL Immature Granulocyte % (Auto) 0 % Neutrophils (%) (Auto) 59 42-75 % Lymphocytes (%) (Auto) 32 12-44 % Monocytes (%) (Auto) 6 0-12 % Eosinophils (%) (Auto) 2 0-10 % Basophils (%) (Auto) 1 0-10 % Neutrophils # (Auto) 5.2 1.8-7.8 10^3/uL Lymphocytes # (Auto) 2.8 1.0-4.0 10^3/uL Monocytes # (Auto) 0.6 0.0-1.0 10^3/uL Eosinophils # (Auto) 0.2 0.0-0.3 10^3/uL Basophils # (Auto) 0.0 0.0-0.1 10^3/uL Immature Granulocyte # (Auto) 0.0 0.0-0.1 10^3/uL Prothrombin Time 12.9 12.2-14.7 SEC INR Comment 0.9 0.8-1.4 Activated Partial Thromboplast Time 29 24-35 SEC Sodium Level 142 135-145 MMOL/L Potassium Level 3.5 L 3.6-5.0 MMOL/L Chloride Level 105 98-107 MMOL/L Carbon Dioxide Level 24 21-32 MMOL/L Anion Gap 13 5-14 MMOL/L Blood Urea Nitrogen 18 7-18 MG/DL Creatinine 0.84 0.60-1.30 MG/DL Estimat Glomerular Filtration Rate 100 BUN/Creatinine Ratio 21 Glucose Level 94 70-105 MG/DL Calcium Level 8.9 8.5-10.1 MG/DL Corrected Calcium 9.0 8.5-10.1 MG/DL Magnesium Level 1.9 1.6-2.4 MG/DL Total Bilirubin 0.3 0.1-1.0 MG/DL Aspartate Amino Transf (AST/SGOT) 17 5-34 U/L Alanine Aminotransferase (ALT/SGPT) 27 0-55 U/L Alkaline Phosphatase 99 40-136 U/L Myoglobin 45.9 10.0-92.0 NG/ML Troponin I < 0.028 <0.028 NG/ML Total Protein 7.2 6.4-8.2 GM/DL Albumin 3.9 3.2-4.5 GM/DL Serum Test, Qualitative NEGATIVE NEGATIVE My Orders Orders - ROLANDO STILL MD Cbc With Automated Diff (05/04/22 23:41) Magnesium (05/04/22 23:41) Ekg Tracing (05/04/22 23:41) Comprehensive Metabolic Panel (05/04/22 23:41) Myoglobin Serum (05/04/22 23:41) Protime With Inr (05/04/22 23:41) Partial Thromboplastin Time (05/04/22 23:41) O2 (05/04/22 23:41) Monitor-Rhythm Ecg Trace Only (05/04/22 23:41) Ed Iv/Invasive Line Start (05/04/22 23:41) Troponin I [place] (05/04/22 23:41) Hcg,Qualitative Serum (05/04/22 23:42) Ondansetron Injection (Zofran Injectio (05/04/22 23:45) Lidocaine 2% Viscous 15 Ml (Xylocaine Vi (05/04/22 23:45) Antacid Suspension (Mylanta Suspension (05/04/22 23:45) Chest Pa/Lat (2 View) (05/05/22 00:04) Ketorolac Injection (Toradol Injection) (05/05/22 01:30) Pantoprazole Tablet (Protonix Tablet) (05/05/22 01:45) Pantoprazole Tablet (Protonix Tablet) (05/05/22 01:36) Medications Given in ED Current Medications Medications Dose Ordered Sig/Braeden Route Start Time Stop Time Status Last Admin Dose Admin Al Hydrox/Mg Hydrox/Simethicone 30 ml ONCE ONCE PO 05/04/22 23:45 05/04/22 23:46 DC 05/04/22 23:55 30 ML Ketorolac Tromethamine 30 mg ONCE ONCE IVP 05/05/22 01:30 05/05/22 01:31 DC 05/05/22 01:33 30 MG Lidocaine HCl 15 ml ONCE ONCE PO 05/04/22 23:45 05/04/22 23:46 DC 05/04/22 23:55 15 ML Ondansetron HCl 4 mg ONCE ONCE IVP 05/04/22 23:45 05/04/22 23:46 DC 05/04/22 23:55 4 MG Pantoprazole Sodium 40 mg ONCE ONCE PO 05/05/22 01:45 05/05/22 01:46 DC 05/05/22 01:37 40 MG Vital Signs/I&O 05/04/22 05/05/22 23:03 01:42 Temp 36.3 Pulse 86 93 Resp 20 20 B/P (MAP) 133/71 (91) 137/88 Pulse Ox 97 99 O2 Delivery Room Air Room Air Blood Pressure Mean: 91 Progress Progress Note : Progress Note Work-up including CBC, CMP, troponin, magnesium, test, EKG, and chest x-rays was unremarkable. All results were reviewed by me. Patient's pain was treated with GI cocktail and improved treated with Zofran. This resolved her heartburn but not the left upper chest and back pain. She later received Toradol. Patient was discharged in stable condition. Prescriptions and di scharge instructions were reviewed with the patient as documented below. Initial ECG Impression Date: May 04, 2022 Initial ECG Impression Time: 23:04 Initial ECG Rate: 81 Initial ECG Rhythm: Normal Sinus Initial ECG Intervals: Normal Initial ECG Impression: Normal Comment Normal sinus rhythm with no ST elevation or depression. No abnormal intervals or axis deviation. Diagnostic Imaging Diagonstic Imaging: Xray Plain Films/CT/US/NM/MRI: chest Comments 2 view chest x-rays viewed by me. No acute abnormalities were appreciated. Radiologist's report was later reviewed as below: NAME: JOHNATHAN NICOLE [facility] REC#: [id number] PT STATUS: DEP ER : 2000 PHYSICIAN: ROLANDO STILL MD ADMIT DATE: 05/04/22/ER Draft Date of Exam:05/05/22 CHEST PA/LAT (2 VIEW) INDICATION: Chest pain Portable chest 12:36 AM Heart size and pulmonary vascularity are normal. Lungs are clear. There are no effusions or pneumothoraces. IMPRESSION: Negative chest Dictated on workstation # [id number] Dict: 05/05/22 0555 Trans: 05/05/22 0600 CORBIN [id number] Interpreted by: JOHANA STRONG MD Departure Impression Primary Impression: Atypical chest pain Additional Impressions: Vomiting Qualified Codes: R11.10 - Vomiting, unspecified GERD (gastroesophageal reflux disease) Qualified Codes: K21.9 - Gastro-esophageal reflux disease without esophagitis Disposition: 01 HOME, SELF-CARE Condition: Improved Departure-Patient Inst. Decision time for Depature: 01:27 Referrals: [facility] [place] Primary Care Physician Patient Instructions: Chest Pain That Is Not Caused by the Heart (DC), Costochondritis, Acid Reflux and Gastroesophageal Reflux Disease in Adults Add. Discharge Instructions: Your chest pain is likely musculoskeletal in nature, possibly costochondritis. You may treat this pain with anti-inflammatory medications such as ibuprofen. 600 mg every 6 hours as needed is recommended. Take with food or milk to avoid stomach irritation. You may also take Tylenol (acetaminophen) up to 1000 mg every 6 hours as needed. Please be aware that NSAID medications such as ibuprofen may worsen stomach irritation. You should not use them any longer than necessary. Start taking omeprazole daily as prescribed. Avoid the following: Eating large meals, eating close to bedtime, caffeine, carbonation, chocolate, citrus fruits and juices, tomato products, alcohol, tob acco, fatty/greasy foods, mints, frequent use of NSAID medications, spicy foods, and anything else you know irritates your stomach. You may use Zofran (ondansetron) as prescribed for nausea or vomiting. Please call your primary care provider tomorrow to schedule a follow-up appointment to discuss your pain, daily vomiting, and Ozempic use. Please be advised Ozempic can have some very intense and serious gastrointestinal side effects. Please discuss this with your doctor. All discharge instructions reviewed with patient and/or family. Voiced understanding. Scripts Omeprazole (Omeprazole) 20 Mg Tablet.dr 20 MG PO BID, #60 TAB Prov: ROLANDO STILL MD 05/05/22 Ondansetron (Ondansetron Odt) 4 Mg Tab.rapdis 4 MG SL Q4H PRN for NAUSEA/VOMITING, #10 TAB Prov: ROLANDO STILL MD 05/05/22 Copy Copies To 1: [facility]/ROLANDO IQBAL MD May 05, 2022 00:04
[2022-05-05] MEDS ORDERED: KETOROLAC 30 MG/ML VIAL IVP ONE (01:30)
[2022-05-05] MEDS ORDERED: OMEP20TA56 PO (01:35)
[2022-05-05] MEDS ORDERED: ONDA4TAB11 SL (01:35)
[2022-05-05] MEDS ORDERED: PANTOPRAZOLE 40 MG (PROTONIX) TAB PO ONE ×2 (01:36→01:45)
[2022-05-05 01:42] VITALS: BP 137/88
--- NOTE | 2022-05-05 06:00 | Diagnostic Imaging Report ---
INDICATION: Chest pain Portable chest 12:36 AM Heart size and pulmonary vascularity are normal. Lungs are clear. There are no effusions or pneumothoraces. IMPRESSION: Negative chest Dictated by: Dictated on workstation # [id number]
== END 2022-05-05 01:35 | disposition home or self-care (01) ==
LOC: EDUNIT# 22:52 → ER 22:53
DX: K21.9 Gastro-esophageal reflux disease without esophagitis (principal); S80.12XA Contusion of left lower leg, initial encounter; E66.01 Morbid (severe) obesity due to excess calories; Z68.43 Body mass index [BMI] 50.0-59.9, adult; Z87.19 Personal history of other diseases of the digestive system; Z86.16 Personal history of COVID-19; Z28.310 Unvaccinated for COVID-19; X58.XXXA Exposure to other specified factors, initial encounter
CPT/HCPCS: 36415; 71046; 80053; 83735; 83874; 84484; 84703; 85025; 85610; 85730; 93005; 93041

== ENCOUNTER 2022-05-29 19:03 | Emergency (ER) | payer SELFPAY ==
[~2022-05-29 19:03] MED LIST changes: +OMEP20TA56 PO
--- NOTE | 2022-05-29 19:19 | ED Upper Extremity ---
General Stated Complaint: RIGHT RING FINGER LAC Source: patient Exam Limitations: no limitations History of Present Illness Date Seen by Provider: May 29, 2022 Time Seen by Provider: 19:18 Initial Comments Patient is a 22-year-old female presents ED with laceration to her right ring finger. This occurred 20 minutes ago. She put her hand in a cabinet with blades and cut the distal end of her right ring finger. Small superficial laceration. Skin is approximated. She reports moderate mount of bleeding. Slight bleeding on arrival. Not up-to-date on her tetanus but she refused. Denies of any distal numbness or tingling, decreased range of motion, fever, chills, cough Allergies and Home Medications Allergies Coded Allergies: Penicillins (Verified Allergy, Unknown, 05/13/21) Patient Home Medication List Home Medication List Reviewed: Yes Cefdinir (Cefdinir) 300 Mg Capsule, 300 MG PO BID Prescribed by: JAEL TOTH on 05/19/21 143 Doxycycline Hyclate (Doxycycline Hyclate) 100 Mg Tablet, 100 MG PO BID Prescribed by: MARTINE BARRAZA on 06/27/201912 Fluticasone Propionate (Flonase Allergy Relief) 9.9 Ml [place].susp, 2 SPRAY NS DAILY Prescribed by: MARTINE BARRAZA on 06/27/201912 Guaifenesin/Dextromethorphan (Mucinex Dm ER 1,200-60 mg Tab) 1 Each Tbmp.12hr, 1 EACH PO BID Prescribed by: MARTINE BARRAZA on 06/27/201912 Naproxen (Naprosyn) 500 Mg Tablet, 500 MG PO BID PRN for PAIN-MILD (1-4) Prescribed by: JOHANA GAN on 05/19/21 0502 Naproxen (Naprosyn) 500 Mg Tablet, 500 MG PO BID Prescribed by: JAEL TOTH on 05/19/21 1430 Nitrofurantoin Macrocrystal (Nitrofurantoin) 100 Mg Capsule, 100 MG PO BID Prescribed by: KALEB MOLINA on 06/20/20 1455 Omeprazole (Omeprazole) 20 Mg Tablet.dr, 20 MG PO BID Prescribed by: ROLANDO ZHANG on 05/05/22 0135 Ondansetron (Ondansetron Odt) 4 Mg Tab.rapdis, 4 MG PO Q4H Prescribed by: MARTINE BARRAZA on 06/04/212157 Ondansetron (Ondansetron Odt) 4 Mg Tab.rapdis, 4 MG SL Q4H PRN for NAUSEA/VOMITING Prescribed by: ROLANDO ZHANG on 05/05/22134 Pantoprazole Sodium (Protonix) 40 Mg Tablet.dr, 40 MG PO DAILY Prescribed by: MARTINE BARRAZA on 06/04/212157 Sucralfate (Carafate) 1 Gm Tablet, 1 GM PO QID Prescribed by: MARTINE BARRAZA on 06/04/212157 Review of Systems Constitutional: No chills, No diaphoresis, No fever, No malaise, No weakness EENTM: No ear pain, No tearing, No mouth pain, No mouth swelling, No throat pain, No throat swelling Respiratory: No cough, No dyspnea on exertion Cardiovascular: No chest pain, No edema Gastrointestinal: No abdominal pain, No diarrhea, No nausea, No vomiting Genitourinary: No decreased output, No discharge Musculoskeletal: No back pain, No joint pain, No joint swelling, No muscle pain Skin: change in color, other (Laceration) Past Oqbxhhf-Zcjfqs-Aoitix Hx Immunizations Up To Date Tetanus Booster (TDap): Less than 5yrs PED Vaccines UTD: Yes Seasonal Allergies Seasonal Allergies: No Past Medical History Surgery/Hospitalization HX: dental, terese, palpitations, burden, uti, gerd, anx/dep, PCOS Surgeries: Yes (WISDOM TEETH; TERESE 2019) Gallbladder Respiratory: No Cardiac: Yes Palpitations Neurological: Yes Headaches /Migraines Reproductive Disorders: Yes (IRREGULAR PERIODS) Female Reproductive Disorders: Menstrual Problems, Ovarian Cyst, Polycystic Ovarian Dis Sexually Transmitted Disease: No HIV/AIDS: No Genitourinary: No UTI (peds) Gastrointestinal: Yes (Frequent vomiting) Gastroesophageal Reflux, Hiatal Hernia, Ulcer, Gall Bladder Disease Musculoskeletal: No Endocrine: Yes (MORBID OBESITY, PCOS, HYPOGLYCEMIC) HEENT: Yes (SALIVARY DUCT STONE 05/2021) Loss of Vision: Denies Hearing Impairment: Denies Cancer: No Psychosocial: Yes (HX DEPRESSION, PANIC ATTACKS-SEVERE ANXIETY) Anxiety, Depression Integumentary: Yes Eczema Blood Disorders: No Adverse Reaction/Blood Tranf: No (N/A) Family Medical History No Pertinent Family Hx TESTED + FOR COVID-19 ON 04/14/20 MILD DISEASE NO TREATMENT OR HOSPITALIZATION Physical Exam Vital Signs Vital Signs - First Documented 05/29/22 19:11 Pulse 104 Resp 18 B/P (MAP) 146/84 (104) Pulse Ox 100 O2 Delivery Room Air Capillary Refill : Height, Weight, BMI Height: 5'4.00" Weight: 380lbs. oz. 172.548284rn; 57.00 BMI Method:Stated General Appearance: WD/WN, no apparent distress HEENT: PERRL/EOMI, normal ENT inspection, TMs normal, pharynx normal Neck: non-tender, full range of motion, supple Cardiovascular: regular rate, rhythm, no edema, no gallop, no JVD Respiratory: chest non-tender, lungs clear, normal breath sounds, no respira tory distress, no accessory muscle use Gastrointestinal: normal bowel sounds, non tender, soft, no organomegaly Back: normal inspection, no CVA tenderness Elbow/Forearm: normal inspection, non-tender Wrist: Yes normal inspection, Yes non-tender, Yes no evidence of injury, Yes normal ROM Hand: Right, laceration (1 cm laceration to the right dorsum ring finger lateral of the nail. Mild bleeding. Normal active range of motion. Neurovascular intact.) Neurologic/Tendon: normal sensation, normal motor functions Neurologic/Psychiatric: abstract manager II-XII nml as tested, no motor/sensory deficits, alert, normal mood/affect, oriented x 3 Progress/Results/Core Measures Results/Orders My Orders Orders - COREY REYNA Acetaminophen Tablet (Tylenol Tablet) (05/29/22 19:45) Lidocaine/Epi 2% 1:100,000 (Xylocaine/Ep (05/29/22 19:45) Lidocaine/Epi 1% 1:100,000 (Xylocaine /E (05/29/22 19:43) Dipht,Pertuss(Acell),Tet Adult (Boostrix (05/29/22 20:00) Medications Given in ED Current Medications Medications Dose Ordered Sig/Braeden Route Start Time Stop Time Status Last Admin Dose Admin Acetaminophen 1,000 mg ONCE ONCE PO 05/29/22 19:45 05/29/22 19:46 DC 05/29/22 19:46 1,000 MG Diphtheria/ Tetanus/Acell Pertussis 0.5 ml ONCE ONCE IM 05/29/22 20:00 05/29/22 20:01 DC 05/29/22 20:01 0.5 ML Lidocaine/ Epinephrine 20 ml STK-MED ONCE .ROUTE 05/29/22 19:43 05/29/22 19:46 DC 05/29/22 19:51 20 ML Vital Signs/I&O 05/29/22 19:11 Pulse 104 Resp 18 B/P (MAP) 146/84 (104) Pulse Ox 100 O2 Delivery Room Air Departure Communication (PCP) Patient has a superficial laceration to the right ring finger on the dorsum side lateral of the nail. Bleeding here on arrival. Direct pressure with gauze. B leeding eventually stopped. She refused a stitch which would likely benefit her for better closure as this area will likely open with the glue. Glue was placed per her request. Finger was placed in immobilizer. Patient was given tetanus shot. Wound appears to be clean. Return precaution were discussed with patient. Discussed wound care. Impression Primary Impression: Finger laceration Disposition: HOME, SELF-CARE Condition: Stable Departure-Patient Inst. Decision time for Depature: 19:21 Referrals: [facility] – [place] (PCP/Family) Primary Care Physician Patient Instructions: Laceration Repair With Glue ED Work/School Note: Work Release Form Date Seen in the Emergency Department: May 29, 2022 Return to Work: May 31, 2022 COREY REYNA May 29, 2022 19:19
[2022-05-29] MEDS ORDERED: LIDOCAINE/EPI 1%-1:100,000 (XYLOCAINE) 20ML ONE (19:43)
[2022-05-29] MEDS ORDERED: LIDOCAINE/EPI 2% 1:100,00 (XYLOCAINE) 20 ML VIAL INJ ONE (19:45)
[2022-05-29] MEDS ORDERED: ACETAMINOPHEN 500 MG TAB (TYLENOL) PO ONE (19:45)
[2022-05-29] MEDS ORDERED: TETANUS,DIPTH,PERTUSS P/F (BOOSTRIX) 0.5 ML VIAL IM ONE (20:00)
[2022-05-29 21:02] VITALS: BP 146/84
== END 2022-05-29 21:02 | disposition home or self-care (01) ==
LOC: EDUNIT# 19:03 → ER 19:05
DX: S61.314A Laceration without foreign body of right ring finger with damage to nail, initial encounter (principal); E66.01 Morbid (severe) obesity due to excess calories; Z68.43 Body mass index [BMI] 50.0-59.9, adult; Z23 Encounter for immunization; Z28.310 Unvaccinated for COVID-19; W26.8XXA Contact with other sharp object(s), not elsewhere classified, initial encounter
CPT/HCPCS: 29130; 90715

== ENCOUNTER 2022-10-23 22:06 | Emergency (ER) | payer OTHER ==
[~2022-10-23] VITALS: Ht 162.6 cm; Wt 168.0 kg
--- NOTE | 2022-10-23 23:45 | ED General ---
General Chief Complaint: Cough/Cold/Flu Symptoms Stated Complaint: CHILLS/DIZZINESS/NECK PAIN/HEARTBURN/CHEST PAIN Nursing Triage Note: PT AMB TO ED BY POV WITH C/O BEJARANO, CHILLS, DIZZINESS AND ACHINESS. PT REPORTS SHE HAS HAD A BEJARANO ALL DAY, BEGAN HAVING CHILLS, DIZZINESS, NECK PAIN, AND "HOT SENSATION" THROUGH HER BODY BEGINNING AROUND 1500. PT REPORTS HEART BURN AND INTERMITTENT CHEST PAIN EN ROUTE, DENIES CP AT THIS TIME. DENIES COUGH, N/V/D, OR ANY URINARY SX AT THIS TIME. Source of Information: Patient (EXTREMELY HOSTILE TO STAFF FROM TIME OF ARRIVAL) History of Present Illness Date Seen by Provider: Oct 23, 2022 Time Seen by Provider: 22:30 Initial Comments PT ARRIVES VIA POV FROM HOME PT C/O BODY ACHES--BEGAN 1 HOUR AGO ABOUT 2 HOURS AGO SHE HAD A HEADACHE AND DIZZINESS--SHE TOOK 1 IBUPROFEN A COUPLE OF HOURS AGO. SHE HAS NOT TAKEN ANYTHING ELSE FOR SYMPTOMS NO FEVER NO URI SYMPTOMS OR COUGH NO NAUSEA/VOMITING/DIARRHEA OR ABDOMINAL PAIN NO URINARY SYMPTOMS C/O "HEARTBURN" --NOT NOW. Allergies and Home Medications Allergies Coded Allergies: Penicillins (Verified Allergy, Unknown, 05/13/21) Patient Home Medication List Cefdinir (Cefdinir) 300 Mg Capsule, 300 MG PO BID Prescribed by: JAEL TOTH on 05/19/21 1430 Cefdinir (Cefdinir) 300 Mg Capsule, 300 MG PO BID Prescribed by: MARTINE BARRAZA on 10/24/22 0046 Doxycycline Hyclate (Doxycycline Hyclate) 100 Mg Tablet, 100 MG PO BID Prescribed by: MARTINE BARRAZA on 06/27/201912 Fluticasone Propionate (Flonase Allergy Relief) 9.9 Ml [place].susp, 2 SPRAY NS DAILY Prescribed by: MARTINE BARRAZA on 06/27/201912 Guaifenesin/Dextromethorphan (Mucinex Dm ER 1,200-60 mg Tab) 1 Each Tbmp.12hr, 1 EACH PO BID Prescribed by: MARTINE BARRAZA on 06/27/201912 Naproxen (Naprosyn) 500 Mg Tablet, 500 MG PO BID PRN for PAIN-MILD (1-4) Prescribed by: JOHANA GAN on 05/19/21 0502 Naproxen (Naprosyn) 500 Mg Tablet, 500 MG PO BID Prescribed by: JAEL TOTH on 05/19/21 1430 Nitrofurantoin Macrocrystal (Nitrofurantoin) 100 Mg Capsule, 100 MG PO BID Prescribed by: KALEB MOLINA on 06/20/20 145 Omeprazole (Omeprazole) 20 Mg Tablet.dr, 20 MG PO BID Prescribed by: ROLANDO ZHANG on 05/05/22134 Ondansetron (Ondansetron Odt) 4 Mg Tab.rapdis, 4 MG PO Q4H Prescribed by: MARTINE BARRAZA on 06/04/212157 Ondansetron (Ondansetron Odt) 4 Mg Tab.rapdis, 4 MG SL Q4H PRN for NAUSEA/VOMITING Prescribed by: ROLANDO ZHANG on 05/05/22134 Ondansetron (Ondansetron Odt) 4 Mg Tab.rapdis, 4 MG PO Q4H Prescribed by: MARTINE BARRAZA on 10/24/22 0046 Pantoprazole Sodium (Protonix) 40 Mg Tablet.dr, 40 MG PO DAILY Prescribed by: MARTINE BARRAZA on 06/04/212157 Sucralfate (Carafate) 1 Gm Tablet, 1 GM PO QID Prescribed by: MARTINE BARRAZA on 06/04/212157 Past Skufcof-Fmrjwu-Dynita Hx Patient Social History Tobacco Use?: No Use of E-Cig and/or Vaping dev: No Substance use?: No Alcohol Use?: No Pt feels they are or have been: No Immunizations Up To Date Tetanus Booster (TDap): Less than 5yrs PED Vaccines UTD: Yes Influenza Vaccine Up-to-Date: No; Not Current First/Initial COVID19 Vaccinat: DENIES Seasonal Allergies Seasonal Allergies: No Past Medical History Surgery/Hospitalization HX: terese, gerd, anx/dep, PCOS, HTN Surgeries: Yes (WISDOM TEETH; TERESE 2020) Gallbladder Respiratory: No Cardiac: Yes Palpitations Neurological: Yes Headaches /Migraines Reproductive Disorders: Yes (IRREGULAR PERIODS) Female Reproductive Disorders: Menstrual Problems, Ovarian Cyst, Polycystic Ovarian Dis Sexually Transmitted Disease: No HIV/AIDS: No Genitourinary: No UTI (peds) Gastrointestinal: Yes (Frequent vomiting) Gastroesophageal Reflux, Hiatal Hernia, Ulcer, Gall Bladder Disease Musculoskeletal: No Endocrine: Yes (MORBID OBESITY, PCOS, HYPOGLYCEMIC) HEENT: Yes (SALIVARY DUCT STONE 05/2021) Loss of Vision: Denies Hearing Impairment: Denies Cancer: No Psychosocial: Yes (HX DEPRESSION, PANIC ATTACKS-SEVERE ANXIETY) Anxiety, Depression Integumentary: Yes Eczema Blood Disorders: No Adverse Reaction/Blood Tranf: No (N/A) Family Medical History No Pertinent Family Hx TESTED + FOR COVID-19 ON 04/14/20 MILD DISEASE NO TREATMENT OR HOSPITALIZATION Physical Exam Vital Signs Vital Signs - First Documented 10/23/22 22:33 Temp 37.9 Pulse 123 Resp 20 B/P (MAP) 143/105 (118) Pulse Ox 100 O2 Delivery Room Air Capillary Refill : Less Than 3 Seconds Height, Weight, BMI Height: 5'4.00" Weight: 380lbs. oz. 172.622273yd; 63.00 BMI Method:Stated Progress/Results/Core Measures Suspected Sepsis SIRS Temperature: Pulse: 123 Respiratory Rate: 20 Blood Pressure 143 /105 Mean: 118 Results/Orders Lab Results Laboratory Tests Test 10/23/22 22:30 10/23/22 23:50 Range/Units Influenza Type A (RT-PCR) Not Detected Not Detecte Influenza Type B (RT-PCR) Not Detected Not Detecte SARS-CoV-2 RNA (RT-PCR) Not Detected Not Detecte Urine Color YELLOW Urine Clarity SL CLOUDY Urine pH 6.5 5-9 Urine Specific [place] 1.020 1.016-1.022 Urine Protein 1+ H NEGATIVE Urine Glucose (UA) NEGATIVE NEGATIVE Urine Ketones NEGATIVE NEGATIVE Urine Nitrite NEGATIVE NEGATIVE Urine Bilirubin NEGATIVE NEGATIVE Urine Urobilinogen .2 < = 1.0 MG/DL Urine Leukocyte Esterase 1+ H NEGATIVE Urine RBC (Auto) 3+ H NEGATIVE Urine RBC 10-25 H /HPF Urine WBC 0-2 /HPF Urine Squamous Epithelial Cells 2-5 /HPF Urine Crystals NONE /LPF Urine Bacteria TRACE /HPF Urine Casts NONE /LPF Urine Mucus SMALL H /LPF Urine Culture Indicated NO Urine Opiates Screen NEGATIVE NEGATIVE Urine Oxycodone Screen NEGATIVE NEGATIVE Urine Methadone Screen NEGATIVE NEGATIVE Urine Propoxyphene Screen NEGATIVE NEGATIVE Urine Barbiturates Screen NEGATIVE NEGATIVE Ur Tricyclic Antidepressants Screen NEGATIVE NEGATIVE Urine Phencyclidine Screen NEGATIVE NEGATIVE Urine Amphetamines Screen NEGATIVE NEGATIVE Urine Methamphetamines Screen NEGATIVE NEGATIVE Urine Benzodiazepines Screen NEGATIVE NEGATIVE Urine Cocaine Screen NEGATIVE NEGATIVE Urine Cannabinoids Screen NEGATIVE NEGATIVE My Orders Orders - MARTINE BARRAZA DO Covid 19 Inhouse Test (10/23/22 22:27) Influenza A And B By Pcr (10/23/22 22:27) Urine Bedside (10/23/22 22:33) Drug Screen Stat (Urine) (10/23/22 22:33) Ua Culture If Indicated (10/23/22 22:33) Cefdinir Capsule (Cefdinir Capsule) (10/24/22 00:45) Vital Signs/I&O 10/23/22 22:33 Temp 37.9 Pulse 123 Resp 20 B/P (MAP) 143/105 (118) Pulse Ox 100 O2 Delivery Room Air Capillary Refill : Less Than 3 Seconds Blood Pressure Mean: 118 Departure Impression Primary Impression: UTI (urinary tract infection) Additional Impression: Nonspecific syndrome suggestive of viral illness Disposition: 01 HOME, SELF-CARE Condition: Stable Departure-Patient Inst. Decision time for Depature: 00:40 Referrals: [facility] (PCP/Family) Primary Care Physician Patient Instructions: Urinary Tract Infection, Adult (DC), Viral Syndrome (DC) Add. Discharge Instructions: TYLENOL 1 GRAM PLUS MOTRIN 800 MG 4 TIMES A DAY FOR PAIN OR FEVER LOTS OF CLEAR LIQUIDS, ESPECIALLY WATER AND GATORADE RECOMMEND RETESTING FOR COVID IN 24-48 HOURS FOLLOW UP WITH [facility] IN 3-4 DAYS IF NO BETTER All discharge instructions reviewed with patient and/or family. Voiced understanding. Scripts Ondansetron (Ondansetron Odt) 4 Mg Tab.rapdis 4 MG PO Q4H for Nausea/Vomiting, #10 TAB Prov: MARTINE BARRAZA DO 10/24/22 Cefdinir (Cefdinir) 300 Mg Capsule 300 MG PO BID, #20 CAP Prov: MARTINE BARRAZA DO 10/24/22 Work/School Note: Work Release Form Date Seen in the Emergency Department: Oct 23, 2022 MARTINE BARRAZA DO Oct 23, 2022 23:45
[2022-10-24 00:33] LABS: AMPHETAMINE SCREEN, URINE NEGATIVE (NEGATIVE); BARBITURATE SCREEN URINE NEGATIVE (NEGATIVE); BENZODIAZEPINES SCREEN URINE NEGATIVE (NEGATIVE); BILIRUBIN,URINE NEGATIVE (NEGATIVE); CANNABINOID SCREEN, URINE NEGATIVE (NEGATIVE); CLARITY,URINE SL CLOUDY; COCAINE SCREEN URINE NEGATIVE (NEGATIVE); COLOR,URINE YELLOW; GLUCOSE, URINE (UA) NEGATIVE (NEGATIVE); KETONES,URINE NEGATIVE (NEGATIVE); LEUKOCYTE ESTERASE ,URINE 1+ (NEGATIVE); METHADONE STAT NEGATIVE (NEGATIVE); NITRITE,URINE NEGATIVE (NEGATIVE); OPIATE SCREEN URINE NEGATIVE (NEGATIVE); OXYCODONE STAT NEGATIVE (NEGATIVE); PH,URINE 6.5 (5-9); PROPOXYPHENE STAT NEGATIVE (NEGATIVE); PROTEIN,URINE 1+ (NEGATIVE); TRICYCLIC ANTIDEPRESSANTS SCRE NEGATIVE (NEGATIVE)
[2022-10-24 00:34] LABS: BACTERIA,URINE TRACE /HPF; WBC,URINE 0-2 /HPF
[2022-10-24] MEDS ORDERED: CEFDINIR 300 MG CAPSULE PO ONE (00:45)
[2022-10-24] MEDS ORDERED: ONDA4TAB11 PO (00:46)
[2022-10-24] MEDS ORDERED: CEFD300C3 PO (00:46)
[2022-10-24 00:59] VITALS: BP 145/106
== END 2022-10-24 01:00 | disposition home or self-care (01) ==
LOC: EDUNIT# 22:06 → ER 22:08
DX: B34.9 Viral infection, unspecified (principal); N39.0 Urinary tract infection, site not specified; Z20.822 Contact with and (suspected) exposure to COVID-19; Z88.0 Allergy status to penicillin
CPT/HCPCS: 80306; 81000; 84703; 87636